=== PATIENT | male | born 1960 | race Caucasian/White ===

== ENCOUNTER 2016-10-10 22:34 | Emergency (ER) | payer MEDICAID ==
[2016-10-10] MEDS ORDERED: Aspirin 81 MG Tab.Chew PO ONE (22:40)
[2016-10-10] MEDS ORDERED: Morphine 4 MG/ML Syringe IVPUSH ONE (22:46)
[2016-10-10] MEDS ORDERED: Morphine 4 MG/ML Syringe ONE (22:46)
--- NOTE | 2016-10-10 22:54 | EDM.PDOC ---
ED HPI GENERAL MEDICAL PROBLEM - General Time Seen by Provider: 10/10/16 22:35 Source of Information: Reports: Patient, EMS History Limitations: Reports: No Limitations - History of Present Illness INITIAL COMMENTS - FREE TEXT/NARRATIVE: Patient presents with left sternal chest pain that started at 1915 and worsened progressively. By 2129 it was 10/10; he took a nitro at 2150 and then a second at 2200 which weren't helping much so called the ambulance. He had a third nitro in the ambulance at 2225. The pain is now 5/10, down from 10/10. He says the pain is similar to, but not as severe as, his previous two heart attacks: in 2005 and 2010. He was diaphoretic at those times and the EMS staff told me he was visibly uncomfortable then, but today he was sitting at his computer smoking a cigarette when they came to pick him up. He also had stents placed at those times. He still smokes 3/4 ppd per patient. He denies arm, neck or jaw pain; denies diaphoresis. He felt fine all morning and afternoon and spent most of the day doing some shopping and later sitting at his computer. - Related Data Allergies Allergy/AdvReac Type Severity Reaction Status Date / Time codeine Allergy Dizziness Verified 10/10/16 23:08 Home Meds: Home Meds Metoprolol Tartrate 25 mg PO BID 08/08/14 [History] buPROPion [buPROPion XL] 100 mg PO DAILY 08/08/14 [History] Citalopram [Citalopram HBr] 40 mg PO DAILY 12/01/15 [History] lamoTRIgine [Lamotrigine] 100 mg PO BEDTIME 12/01/15 [History] Omeprazole 20 mg PO DAILY 10/10/16 [History] Omeprazole 40 mg PO DAILY 10/10/16 [History] Orphenadrine [Norflex] 100 mg PO BID 10/10/16 [History] Past Medical History Cardiovascular History: Reports: Hypertension, [place], Stents Gastrointestinal History: Reports: Hiatal Hernia Other Gastrointestinal History: H. Pylori Psychiatric History: Reports: Depression - Past Surgical History Cardiovascular Surgical History: Reports: Coronary Artery Stent Musculoskeletal Surgical History: Reports: Arthroscopic Knee Social & Family History - Tobacco Use Smoking Status *Q: Current Every Day Smoker Years of Tobacco use: 35 Packs/Tins Daily: 1 Used Tobacco, but Quit: No Second Hand Smoke Exposure: Yes - Caffeine Use Caffeine Use: Reports: Coffee - Alcohol Use Days Per Week of Alcohol Use: 0 - Recreational Drug Use Recreational Drug Use: No ED ROS GENERAL - Review of Systems Review Of Systems: See Below Constitutional: Denies: Fever, Chills, Malaise, Weakness, Diaphoresis HEENT: Denies: Throat Pain, Vision Change Respiratory: Denies: Shortness of Breath, Cough Cardiovascular: Reports: Chest Pain. Denies: Lightheadedness, Syncope GI/Abdominal: Reports: Other (He denies reflux or heartburn problems). Denies: Abdominal Pain, Diarrhea, Nausea, Vomiting : Reports: No Symptoms Musculoskeletal: Denies: Neck Pain, Shoulder Pain, Arm Pain, Back Pain Skin: Denies: Cyanosis, Jaundice, Mottled, Pallor, Diaphoresis Neurological: Denies: Confusion, Dizziness, Headache, Seizure, Syncope, Trouble Speaking, Difficulty Walking, Weakness Psychiatric: Denies: Agitation, Anxiety, Confusion ED EXAM, GENERAL - Physical Exam Exam: See Below Exam Limited By: No Limitations General Appearance: Alert, WD/WN, No Apparent Distress Eye Exam: Bilateral Eye: EOMI, Normal Inspection, PERRL Ears: Normal External Exam, Hearing Grossly Normal Nose: Normal Inspection, No Blood Throat/Mouth: Normal Inspection, Normal Lips, Normal Voice, No Airway Compromise Head: Atraumatic, Normocephalic Neck: Normal Inspection, Supple, Non-Tender, Full Range of Motion Respiratory/Chest: No Respiratory Distress, Lungs Clear, Normal Breath Sounds, No Accessory Muscle Use Cardiovascular: Normal Peripheral Pulses, Regular Rate, Rhythm, No Edema, No Murmur Peripheral Pulses: 2+: Carotid (L), Carotid (R), Radial (L), Radial (R), Posterior Tibial (L), Posterior Tibial (R) GI/Abdominal: Normal Bowel Sounds, Soft, Non-Tender, No Organomegaly, No Distention Extremities: Normal Inspection, Normal Range of Motion, Non-Tender, No Pedal Edema Neurological: Alert, Oriented, Normal Cognition, No Motor/Sensory Deficits Psychiatric: Normal Affect, Normal Mood Skin Exam: Warm, Dry, Intact, Normal Color, No Rash Course - Orders/Labs/Meds Orders: Active Orders 24 hr Category Date Time Status CBC WITH AUTO DIFF [HEME] Stat Lab 10/10/16 22:43 Ordered CMP [COMPREHENSIVE METABOLIC PN,CMP] [CHEM] Stat Lab 10/10/16 22:42 Ordered LIPASE [CHEM] Stat Lab 10/10/16 22:42 Ordered TROPONIN I [CHEM] Stat Lab 10/10/16 22:42 Ordered - Re-Assessments/Exams Free Text/Narrative Re-Assessment/Exam: 10/10/16 23:30 Following 4 mg of morphine pain is down to 3/10. Patient tells me he is applying for social security disability because of his two heart attacks and chronic low back pain. Especially since he doesn't know when he will have another heart attack he says. He drinks about once a month and smokes marijuana when it's available but never any other street drugs. 10/10/16 23:54 Troponin is 0.06 and EKGs are negative. Pain is completely gone following GI cocktail. I discussed findings and recommendations with patient: Smoking cessation is extremely important and regular cardio exercise will help his heart as well as his back pain. Patient discharged in stable condition. Departure - Departure Time of Disposition: 23:51 Disposition: Home, Self-Care 01 Condition: Good Clinical Impression: Chest pain of uncertain etiology Additional Instructions: 1. Drink 8 cups of water daily. 2. Stopping smoking is extremely important to reduce your risk of heart attacks. 3. Follow up with your PCP next week for recheck and to discuss smoking cessation options if you choose. - My Orders Last 24 Hours: My Active Orders 10/10/16 22:42 CMP [COMPREHENSIVE METABOLIC PN,CMP] [CHEM] Stat LIPASE [CHEM] Stat TROPONIN I [CHEM] Stat 10/10/16 22:43 CBC WITH AUTO DIFF [HEME] Stat - Assessment/Plan Last 24 Hours: My Active Orders 10/10/16 22:42 CMP [COMPREHENSIVE METABOLIC PN,CMP] [CHEM] Stat LIPASE [CHEM] Stat TROPONIN I [CHEM] Stat 10/10/16 22:43 CBC WITH AUTO DIFF [HEME] Stat
[2016-10-10 23:23] LABS: SODIUM,NA 141 mmol/L (136-145)
[2016-10-10 23:24] LABS: CHLORIDE,CL 103 mmol/L (98-115)
[2016-10-10] MEDS ORDERED: GI Cocktail 45 ML BOTTLE PO ONE (23:29)
[2016-10-11] VITALS: BP 127/53
== END 2016-10-11 00:15 | disposition home or self-care (01) ==
LOC: KA.ED 22:34
DX: R07.2 Precordial pain (principal); I10 Essential (primary) hypertension; F17.210 Nicotine dependence, cigarettes, uncomplicated; F32.9 Major depressive disorder, single episode, unspecified; I25.2 Old myocardial infarction; Z95.5 Presence of coronary angioplasty implant and graft; Z88.5 Allergy status to narcotic agent; Z79.82 Long term (current) use of aspirin
CPT/HCPCS: 36415; 80053; 83690; 84484; 85025; 93005; 96374; 99285; A9270; J2270

== ENCOUNTER 2017-02-28 11:05 | Emergency (ER) | payer MEDICAID ==
[2017-02-28] MEDS ORDERED: Ondansetron 4 MG/2 ML SDV IVPUSH ONE (11:06)
[2017-02-28] MEDS ORDERED: HYDROmorphone 1 MG/ML Syringe IVPUSH ONE (11:06)
--- NOTE | 2017-02-28 11:12 | EDM.PDOC ---
ED HPI GENERAL MEDICAL PROBLEM - General Chief Complaint: Lower Extremity Injury/Pain Stated Complaint: right ankle injury/slip and fall Time Seen by Provider: 02/28/17 11:05 Source of Information: Reports: Patient, EMS History Limitations: Reports: No Limitations - History of Present Illness INITIAL COMMENTS - FREE TEXT/NARRATIVE: 56 YO WM presents to ER by EMS after slip and fall on ice at [employer]. Pt reports he slipped and injured his right ankle and lower leg. Pt denies any head injury. Pt denies any other injury from fall. Pt was able to stand but unable to weight bear on right side. Onset: Today Onset Date: 02/28/17 Duration: Hour(s): (1/2) Location: Reports: Lower Extremity, Right Quality: Reports: Ache Severity: Severe Improves with: Reports: Rest Worsens with: Reports: Movement Context: Reports: Trauma Associated Symptoms: Reports: No Other Symptoms Right Ankle Pain Score (Numeric/FACES): 10 - Related Data Allergies Allergy/AdvReac Type Severity Reaction Status Date / Time codeine Allergy Dizziness Verified 02/28/17 11:25 Home Meds: Home Meds Metoprolol Tartrate 25 mg PO BID 08/08/14 [History] buPROPion [buPROPion XL] 100 mg PO DAILY 08/08/14 [History] Citalopram [Citalopram HBr] 40 mg PO DAILY 12/01/15 [History] lamoTRIgine [Lamotrigine] 100 mg PO BEDTIME 12/01/15 [History] Omeprazole 20 mg PO DAILY 10/10/16 [History] Omeprazole 40 mg PO DAILY 10/10/16 [History] Orphenadrine [Norflex] 100 mg PO BID 10/10/16 [History] Ibuprofen [Motrin] 600 mg PO Q6H PRN #20 tab 02/28/17 [Rx] traMADol [Ultram] 50 mg PO Q6H PRN #15 tab 02/28/17 [Rx] Past Medical History HEENT History: Reports: Impaired Vision Cardiovascular History: Reports: Hypertension, [place], Stents Other Cardiovascular History: Mi in 2005 with one stent placed, [place] in 2010 with 2 stents placed. Gastrointestinal History: Reports: Hiatal Hernia Other Gastrointestinal History: H. Pylori Musculoskeletal History: Reports: Back Pain, Chronic Psychiatric History: Reports: Depression - Infectious Disease History Infectious Disease History: Reports: Chicken Pox, Helicobacter Pylori, Measles - Past Surgical History Cardiovascular Surgical History: Reports: Coronary Artery Stent Musculoskeletal Surgical History: Reports: Arthroscopic Knee Social & Family History - Family History Cardiac: Reports: [place] - Tobacco Use Smoking Status *Q: Current Every Day Smoker Years of Tobacco use: 40 Packs/Tins Daily: 1 Used Tobacco, but Quit: No Second Hand Smoke Exposure: No - Caffeine Use Caffeine Use: Reports: Coffee, Energy Drinks, Soda - Alcohol Use Days Per Week of Alcohol Use: 0 - Recreational Drug Use Recreational Drug Use: Yes Drug Use in Last 12 Months: Yes Recreational Drug Type: Reports: Marijuana/Hashish Recreational Drug Use Frequency: Daily Review of Systems - Review of Systems Review Of Systems: See Below Constitutional: Reports: No Symptoms Eyes: Reports: No Symptoms Ears: Reports: No Symptoms Nose: Reports: No Symptoms Mouth/Throat: Reports: No Symptoms Respiratory: Reports: No Symptoms Cardiovascular: Reports: No Symptoms GI/Abdominal: Reports: No Symptoms Genitourinary: Reports: No Symptoms Musculoskeletal: Reports: Leg Pain (right ankle) Skin: Reports: No Symptoms Neurological: Reports: No Symptoms Psychiatric: Reports: No Symptoms ED EXAM, GENERAL - Physical Exam Exam: See Below Exam Limited By: No Limitations General Appearance: Alert, WD/WN, Mild Distress Neck: Normal Inspection, Supple, Non-Tender, Full Range of Motion Respiratory/Chest: No Respiratory Distress, Lungs Clear, Normal Breath Sounds, No Accessory Muscle Use, Chest Non-Tender Cardiovascular: Normal Peripheral Pulses, Regular Rate, Rhythm, No Edema, No Gallop, No JVD, No Murmur, No Rub GI/Abdominal: Normal Bowel Sounds, Soft, Non-Tender, No Organomegaly, No Distention, No Abnormal Bruit, No Mass Back Exam: Normal Inspection, Full Range of Motion, NT Extremities: Leg Pain (right proximal ankle injury- lateral swelling noted) Neurological: Alert, Oriented, CN II-XII Intact, Normal Cognition, Normal Gait, Normal Reflexes, No Motor/Sensory Deficits Psychiatric: Normal Affect, Normal Mood Skin Exam: Warm, Dry, Intact, Normal Color, No Rash Lymphatic: No Adenopathy Course - Vital Signs Last Recorded V/S: Last Vital Signs Temp 35.9 C 02/28/17 11:23 Pulse 16 L 02/28/17 11:23 Resp 16 02/28/17 11:23 BP 150/74 H 02/28/17 11:23 Pulse Ox 98 02/28/17 11:23 - Orders/Labs/Meds Orders: Active Orders 24 hr Category Date Time Status Ankle Min 3V Rt [CR] Stat Exams 02/28/17 11:06 Ordered Tibia Fibula Rt [CR] Stat Exams 02/28/17 11:06 Ordered Meds: Medications Discontinued Medications Generic Name Dose Route Start Last Admin Trade Name Freq PRN Reason Stop Dose Admin Hydromorphone HCl 1 mg 02/28/17 11:06 02/28/17 11:17 Dilaudid IVPUSH 02/28/17 11:07 1 mg ONETIME ONE Administration Ondansetron HCl 4 mg 02/28/17 11:06 02/28/17 11:15 Zofran IVPUSH 02/28/17 11:07 4 mg ONETIME ONE Administration - Radiology Interpretation Free Text/Narrative:: right tibia/fibula- proximal nondisplaced spiral fibular fracture right ankle- NAD Departure - Departure Time of Disposition: 12:19 Disposition: Home, Self-Care 01 Condition: Good Clinical Impression: Fracture of fibula Closed fibular fracture Qualifiers: Encounter type: initial encounter Fibula location: proximal Laterality: right - Discharge Information Prescriptions: Ibuprofen [Motrin] 600 mg PO Q6H PRN #20 tab PRN Reason: Pain traMADol [Ultram] 50 mg PO Q6H PRN #15 tab PRN Reason: Pain Referrals: Vanessa Martinez MD [Primary Care Provider] - Gerry Randall MD [Physician] - Forms: ED Department Discharge - My Orders Last 24 Hours: My Active Orders 02/28/17 11:06 Ankle Min 3V Rt [CR] Stat Tibia Fibula Rt [CR] Stat - Assessment/Plan Last 24 Hours: My Active Orders 02/28/17 11:06 Ankle Min 3V Rt [CR] Stat Tibia Fibula Rt [CR] Stat Assessment:: 1. right nondisplaced spiral fracture of the proximal fibula Plan: 1. knee immobilizer 2. crutches 3. motrin 600mg PO Q6 PRN 4. ultram 50mg PO Q6 PRN 5. follow up with [facility] for recheck- Dr Kebede 6. return to ER for worsening symptoms
[2017-02-28 11:25] VITALS: BP 150/74
[2017-02-28] MEDS ORDERED: traMADol 50 MG Tab ONE (13:00)
[2017-02-28] MEDS ORDERED: traMADol 50 MG Tab PO ONE (13:00)
[2017-02-28] MEDS ORDERED: Ibuprofen 600 MG Tab PO ONE (13:00)
== END 2017-02-28 13:25 | disposition home or self-care (01) ==
LOC: KA.ED 11:05
DX: S82.831A Other fracture of upper and lower end of right fibula, initial encounter for closed fracture (principal); S82.51XA Displaced fracture of medial malleolus of right tibia, initial encounter for closed fracture; I10 Essential (primary) hypertension; F32.9 Major depressive disorder, single episode, unspecified; F17.210 Nicotine dependence, cigarettes, uncomplicated; W01.0XXA Fall on same level from slipping, tripping and stumbling without subsequent striking against object, initial encounter; Z88.5 Allergy status to narcotic agent; Z79.899 Other long term (current) drug therapy
CPT/HCPCS: 73590; 73610; 99283; A9270; J1170; J2405; 96374; 96375

== ENCOUNTER 2017-07-06 01:33 | Observation (INO) | payer MEDICAID ==
--- NOTE | 2017-07-06 01:59 | EDM.PDOC ---
ED HPI GENERAL MEDICAL PROBLEM - General Chief Complaint: Chest Pain Stated Complaint: chest pain Time Seen by Provider: 07/06/17 01:33 Source of Information: Reports: Patient, EMS History Limitations: Reports: No Limitations - History of Present Illness INITIAL COMMENTS - FREE TEXT/NARRATIVE: 57-year-old female is brought in by EMS with complaints of chest pain. Patient reports onset of chest pain occurred approximately 12:30 this evening he was rate and is a 10 out of 10 in severity. He stated that he did taking nitroglycerin that he had at home and it improved to an 8 out of 10. Symptoms persisted including dizziness and lightheadedness and he therefore called EMS. On arrival EMS stenosis that patient was diaphoretic. He was still complaining of chest pain and was given another nitroglycerin his pain then improved to a 5 out of 10 he had single-lead EKG showed normal sinus rhythm. He had a for aspirin chewable in route he is now brought in for further evaluation. Patient states that he had 3 beers this evening and he smoked a marijuana joint at approximately 6:30 this evening. He smokes marijuana about once a month he has a current active smoker and smokes about three quarters of a pack a day he's done this for 40 years. He's had 2 stent placements in the past first one is in [place] in July 2005 the second one was in February 2010. He reports the stent he had in 2010 was his LAD. He has not had any chest pain or complaints since his second stent placement. He now states that his pain is a 0 out of 10. Onset: Today, Sudden Onset Date: 07/06/17 Onset Time: 00:30 Duration: Minutes:, Improving Location: Reports: Chest Quality: Reports: Ache Severity: Moderate Improves with: Reports: Medication (Patient was given 2 sublingual nitros.) Worsens with: Reports: None Associated Symptoms: Reports: Other (Dizziness) Treatments [employer] PERSON: Reports: Aspirin, Nitroglycerin Chest Pain Score (Numeric/FACES): 6 - Related Data Allergies Allergy/AdvReac Type Severity Reaction Status Date / Time codeine Allergy Dizziness Verified 07/06/17 01:38 Home Meds: Home Meds Metoprolol Tartrate 25 mg PO BID 08/08/14 [History] buPROPion [buPROPion XL] 100 mg PO DAILY 08/08/14 [History] Citalopram [Citalopram HBr] 40 mg PO DAILY 12/01/15 [History] lamoTRIgine [Lamotrigine] 100 mg PO BEDTIME 12/01/15 [History] Omeprazole 20 mg PO DAILY 10/10/16 [History] Omeprazole 40 mg PO DAILY 10/10/16 [History] Ibuprofen [Motrin] 600 mg PO Q6H PRN #20 tab 02/28/17 [Rx] Past Medical History HEENT History: Reports: Impaired Vision Cardiovascular History: Reports: Hypertension, [place], Stents Other Cardiovascular History: Mi in 2006 with one stent placed, [place] in 2010 with 2 stents placed. Gastrointestinal History: Reports: Hiatal Hernia Other Gastrointestinal History: H. Pylori Musculoskeletal History: Reports: Back Pain, Chronic Psychiatric History: Reports: Depression - Infectious Disease History Infectious Disease History: Reports: Chicken Pox, Helicobacter Pylori, Measles - Past Surgical History Cardiovascular Surgical History: Reports: Coronary Artery Stent Musculoskeletal Surgical History: Reports: Arthroscopic Knee Social & Family History - Family History Cardiac: Reports: [place] - Tobacco Use Smoking Status *Q: Current Every Day Smoker Years of Tobacco use: 40 Packs/Tins Daily: 0.7 - Caffeine Use Caffeine Use: Reports: Coffee, Energy Drinks - Recreational Drug Use Recreational Drug Use: Yes Drug Use in Last 12 Months: Yes Recreational Drug Type: Reports: Marijuana/Hashish Recreational Drug Use Frequency: Monthly ED ROS GENERAL - Review of Systems Review Of Systems: See Below Constitutional: Reports: Diaphoresis HEENT: Reports: No Symptoms Respiratory: Reports: No Symptoms Cardiovascular: Reports: Chest Pain, Lightheadedness Endocrine: Reports: No Symptoms GI/Abdominal: Reports: No Symptoms : Reports: No Symptoms Musculoskeletal: Denies: Neck Pain, Shoulder Pain, Back Pain Skin: Reports: Diaphoresis Neurological: Reports: No Symptoms Psychiatric: Reports: No Symptoms Hematologic/Lymphatic: Reports: No Symptoms Immunologic: Reports: No Symptoms ED EXAM, GENERAL - Physical Exam Exam: See Below Exam Limited By: No Limitations General Appearance: Alert, WD/WN, No Apparent Distress Eye Exam: Bilateral Eye: EOMI, PERRL Ears: Normal External Exam, Normal Canal, Normal TMs Nose: Normal Inspection Throat/Mouth: Normal Oropharynx, Normal Voice, No Airway Compromise Head: Atraumatic Neck: Normal Inspection, Supple, Non-Tender, Full Range of Motion. No: Carotid Bruit Respiratory/Chest: No Respiratory Distress, Lungs Clear Cardiovascular: Regular Rate, Rhythm Peripheral Pulses: 2+: Carotid (L), Carotid (R), Radial (L), Radial (R), Dorsalis Pedis (L), Dorsalis Pedis (R) GI/Abdominal: Normal Bowel Sounds, Soft, Non-Tender, No Abnormal Bruit Back Exam: Normal Inspection Extremities: Normal Inspection, Normal Range of Motion, No Pedal Edema Neurological: Alert, Oriented, No Motor/Sensory Deficits Psychiatric: Normal Affect, Normal Mood Skin Exam: Warm, Dry, Intact, Normal Color, No Rash Lymphatic: No Adenopathy EKG INTERPRETATION EKG Date: 07/06/17 Time: 01:47 Rhythm: NSR Rate (Beats/Min): 66 [place]: Normal P-Wave: Present QRS: Normal ST-T: Normal QT: Normal Comparison: NA - No Prior EKG EKG Interpretation Comments: Normal sinus rhythm Possible left atrial enlargement Course - Vital Signs Last Recorded V/S: Last Vital Signs Temp 97.5 F 07/06/17 01:35 Pulse 70 07/06/17 02:07 Resp 14 07/06/17 02:07 BP 104/48 L 07/06/17 02:07 Pulse Ox 94 L 07/06/17 02:07 - Orders/Labs/Meds Orders: Active Orders 24 hr Category Date Time Status EKG Documentation Completion [RC] ASDIRECTED Care 07/06/17 01:39 Active EKG 12 Lead [EK] Routine Ther 07/06/17 01:38 Ordered Labs: Laboratory Tests 07/06/17 07/06/17 Range/Units 01:35 01:35 WBC 13.4 H (5.0-10.0) 10^3/uL RBC 4.17 L (4.50-6.00) 10^6/uL Hgb 14.5 (13.0-17.0) g/dL Hct 43.2 (40.0-52.0) % MCV 103.6 H D (82.0-92.0) fL MCH 34.8 H (27.0-31.0) pg MCHC 33.6 (32.0-36.0) g/dL RDW 12.7 (11.5-14.5) % Plt Count 200 (150-300) 10^3/uL MPV 7.6 (7.4-10.4) fL Neut % (Auto) 76.2 H (50.0-70.0) % Lymph % (Auto) 18.4 L (20.0-40.0) % [place] % (Auto) 3.3 (2.0-8.0) % Eos % (Auto) 2.1 (1.0-3.0) % Baso % (Auto) 0.0 (0.0-1.0) % Neut # (Auto) 10.2 H (2.5-7.0) 10^3/uL Lymph # (Auto) 2.5 (1.0-4.0) 10^3/uL [place] # (Auto) 0.4 (0.1-0.8) 10^3/uL Eos # (Auto) 0.3 (0.1-0.3) 10^3/uL Baso # (Auto) 0.0 (0.0-0.1) 10^3/uL Sodium 142 (136-145) mmol/L Potassium 4.1 (3.3-5.3) mmol/L Chloride 101 (98-115) mmol/L Carbon Dioxide 22.0 (21.0-32.0) mmol/L BUN 16 (6-25) mg/dL Creatinine 1.77 H (0.51-1.17) mg/dL Est Cr Clr Drug Dosing 49.93 mL/min Estimated GFR (MDRD) 40 mL/min Glucose 133 H (70-110) mg/dL Calcium 8.5 L (8.7-10.3) mg/dL Troponin I < 0.04 (0.00-0.070) ng/mL Meds: Medications Discontinued Medications Generic Name Dose Route Start Last Admin Trade Name Wilner PRN Reason Stop Dose Admin Aspirin Confirm 07/06/17 02:06 07/06/17 02:09 Aspirin Administered 07/06/17 02:07 Not Given Dose 324 mg .ROUTE .STK-MED ONE - Re-Assessments/Exams Free Text/Narrative Re-Assessment/Exam: 07/06/17 02:22 Patient states that his pain is now is 0 out of 10 Departure - Departure Time of Disposition: 02:22 Disposition: Refer to Observation Condition: Good Clinical Impression: Atypical chest pain Referrals: Vanessa Martinez MD [Primary Care Provider] - Forms: ED Department Discharge - My Orders Last 24 Hours: My Active Orders 07/06/17 01:38 EKG 12 Lead [EK] Routine 07/06/17 01:39 EKG Documentation Completion [RC] ASDIRECTED - Assessment/Plan Last 24 Hours: My Active Orders 07/06/17 01:38 EKG 12 Lead [EK] Routine 07/06/17 01:39 EKG Documentation Completion [RC] ASDIRECTED Assessment:: Atypical chest pain, new onset History of coronary stents Prior history of [place] Plan: 1. The patient has not had any cardiac symptoms since his last stent placement in 2010. He is not had any need to take nitroglycerin. He's had a new onset of chest pain that was relieved with nitroglycerin 2. His EKG shows normal sinus rhythm and his troponin is less than 0.04. Due to his significant cardiac history, family history, current smoker and obese I would like to keep him overnight in telemetry and repeat his troponin at 0600. If his troponin is negative at his next lab draw we will plan on sending him home in the morning. Follow-up with Dr. Vanessa Villaseñor
[2017-07-06] MEDS ORDERED: Aspirin 81 MG Tab.Chew ONE (02:06)
[2017-07-06 02:08] LABS: CHLORIDE,CL 101 mmol/L (98-115); SODIUM,NA 142 mmol/L (136-145)
[2017-07-06] MEDS ORDERED: Sodium Chloride 0.9% 5 ML Syringe FLUSH PRN (02:29)
[2017-07-06] MEDS ORDERED: Acetaminophen 325 MG Tab PO PRN (02:29)
[2017-07-06] MEDS ORDERED: Morphine 2 MG/ML Syringe IVPUSH PRN (02:29)
[2017-07-06] MEDS ORDERED: Ondansetron 4 MG/2 ML SDV IV PRN (02:29)
[2017-07-06] MEDS ORDERED: Lidocaine 2% 100 MG/5 ML Syringe IVPUSH PRN (06:09)
[2017-07-06] MEDS ORDERED: Atropine 0.1 MG/ML 10 ML Syringe IVPUSH PRN (06:09)
[2017-07-06] MEDS ORDERED: EPINEPHrine 1:10,000 1 MG/10 ML Syringe IVPUSH PRN (06:09)
[2017-07-06] MEDS ORDERED: Nitroglycerin 0.4 MG Tab.SL SL PRN (06:09)
[2017-07-06] MEDS ORDERED: Omeprazole 20 MG Cap.CR PO ONE (08:45)
[2017-07-06] MEDS ORDERED: buPROPion 100 MG Tab PO ONE (08:45)
[2017-07-06] MEDS ORDERED: Citalopram 20 MG Tab PO ONE (08:45)
[2017-07-06 08:47] VITALS: BP 119/67
[2017-07-06] MEDS ORDERED: Non-Formulary Medication 1 Each (Omeprazole [Omeprazole] 40 MG) PO SCH (09:00)
[2017-07-06] MEDS ORDERED: CITALOPRAM 40 MG PO SCH (09:00)
[2017-07-06] MEDS ORDERED: Non-Formulary Medication 1 Each (Omeprazole [Omeprazole] 20 MG) PO SCH (09:00)
[2017-07-06] MEDS ORDERED: Metoprolol Tartrate 25 MG Tab PO SCH (09:00)
[2017-07-06] MEDS ORDERED: BUPROPION 100 MG PO SCH (09:00)
--- NOTE | 2017-07-06 11:25 | PCM.PN ---
- General Info Date of Service: 07/06/17 Admission Dx/Problem (Free Text): atypical chest, angina Functional Status: Reports: Pain Controlled, Tolerating Diet, Ambulating Pain Score: 0 - Review of Systems General: Reports: No Symptoms HEENT: Reports: No Symptoms Pulmonary: Denies: Shortness of Breath Cardiovascular: Denies: Chest Pain, Palpitations, Dyspnea on Exertion, Lightheadedness Gastrointestinal: Reports: No Symptoms Genitourinary: Reports: No Symptoms Musculoskeletal: Reports: No Symptoms Skin: Reports: No Symptoms Neurological: Reports: No Symptoms - Patient Data Vitals - Most Recent: Last Vital Signs Temp 97.6 F 07/06/17 06:06 Pulse 65 07/06/17 08:45 Resp 18 07/06/17 06:06 BP 119/67 07/06/17 08:45 Pulse Ox 95 07/06/17 06:06 Weight - Most Recent: 231 lb 6 oz I&O - Last 24 Hours: Intake & Output 07/05/17 07/06/17 07/06/17 22:59 06:59 14:59 Intake Total 200 Output Total 0 Balance 200 Lab Results Last 24 Hours: Laboratory Results - last 24 hr 07/06/17 07/06/17 07/06/17 Range/Units 01:35 01:35 06:10 WBC 13.4 H (5.0-10.0) 10^3/uL RBC 4.17 L (4.50-6.00) 10^6/uL Hgb 14.5 (13.0-17.0) g/dL Hct 43.2 (40.0-52.0) % MCV 103.6 H D (82.0-92.0) fL MCH 34.8 H (27.0-31.0) pg MCHC 33.6 (32.0-36.0) g/dL RDW 12.7 (11.5-14.5) % Plt Count 200 (150-300) 10^3/uL MPV 7.6 (7.4-10.4) fL Neut % (Auto) 76.2 H (50.0-70.0) % Lymph % (Auto) 18.4 L (20.0-40.0) % [place] % (Auto) 3.3 (2.0-8.0) % Eos % (Auto) 2.1 (1.0-3.0) % Baso % (Auto) 0.0 (0.0-1.0) % Neut # (Auto) 10.2 H (2.5-7.0) 10^3/uL Lymph # (Auto) 2.5 (1.0-4.0) 10^3/uL [place] # (Auto) 0.4 (0.1-0.8) 10^3/uL Eos # (Auto) 0.3 (0.1-0.3) 10^3/uL Baso # (Auto) 0.0 (0.0-0.1) 10^3/uL Sodium 142 (136-145) mmol/L Potassium 4.1 (3.3-5.3) mmol/L Chloride 101 (98-115) mmol/L Carbon Dioxide 22.0 (21.0-32.0) mmol/L BUN 16 (6-25) mg/dL Creatinine 1.77 H (0.51-1.17) mg/dL Est Cr Clr Drug Dosing 49.93 mL/min Estimated GFR (MDRD) 40 mL/min Glucose 133 H (70-110) mg/dL Calcium 8.5 L (8.7-10.3) mg/dL Troponin I < 0.04 < 0.04 (0.00-0.070) ng/mL Med Orders - Current: Current Medications Acetaminophen (Tylenol) 650 mg PO Q4H PRN PRN Reason: Pain (Mild 1-3)/fever Last Admin: 07/06/17 09:20 Dose: 650 mg Atropine Sulfate (Atropine 0.1 Mg/Ml) 0 mg IVPUSH ASDIRECTED PRN PRN Reason: Heart Epinephrine HCl (Epinephrine 1:10,000) 1 mg IVPUSH ASDIRECTED PRN PRN Reason: Heart Lamotrigine (Lamotrigine) 100 mg PO BEDTIME [place] Lidocaine HCl (Xylocaine 2%) 0 mg IVPUSH ASDIRECTED PRN PRN Reason: Heart Metoprolol Tartrate (Lopressor) 25 mg PO BID [place] Last Admin: 07/06/17 08:45 Dose: 25 mg Morphine Sulfate (Morphine) 2 mg IVPUSH Q2H PRN PRN Reason: Pain (severe 7-10) Nitroglycerin (Nitrostat) 0.4 mg SL ASDIRECTED PRN PRN Reason: Heart Non-Formulary Medication (Bupropion [Bupropion Xl]) 100 mg PO DAILY [facility] Last Admin: 07/06/17 08:45 Dose: 100 mg Non-Formulary Medication (Citalopram [Citalopram Hbr]) 40 mg PO DAILY [facility] Last Admin: 07/06/17 08:45 Dose: 40 mg Non-Formulary Medication (Omeprazole [Omeprazole]) 20 mg PO DAILY [facility] Last Admin: 07/06/17 08:45 Dose: 20 mg Non-Formulary Medication (Omeprazole [Omeprazole]) 40 mg PO DAILY [facility] Last Admin: 07/06/17 08:46 Dose: 40 mg Ondansetron HCl (Zofran) 4 mg IV Q6H PRN PRN Reason: Nausea/Vomiting Sodium Chloride (Syrex Flush) 5 ml FLUSH Q8HR PRN PRN Reason: Keep Vein Open Discontinued Medications Aspirin (Aspirin) Confirm Administered Dose 324 mg .ROUTE .SkemA-MED ONE Stop: 07/06/17 02:07 Last Admin: 07/06/17 02:09 Dose: Not Given - Exam General: Alert, Oriented HEENT: Pupils Equal Neck: Supple Lungs: Clear to Auscultation Cardiovascular: Regular Rate, Regular Rhythm GI/Abdominal Exam: Soft Back Exam: Normal Inspection Extremities: Normal Inspection Neurological: No New Focal Deficit Psy/Mental Status: Alert, Normal Affect, Normal Mood - Problem List Review Problem List Initiated/Reviewed/Updated: Yes - My Orders Last 24 Hours: My Active Orders 07/06/17 01:38 EKG 12 Lead [EK] Routine 07/06/17 01:39 EKG Documentation Completion [RC] ASDIRECTED 07/06/17 02:29 Patient Status [ADT] Routine Oxygen Therapy [RC] PRN Up With Assistance [RC] ASDIRECTED VTE/DVT Education [RC] PER UNIT ROUTINE Vital Signs [RC] 0300,0700,1100,1500,1900,2300 Acetaminophen [Tylenol] 650 mg PO Q4H PRN Morphine 2 mg IVPUSH Q2H PRN Ondansetron [Zofran] 4 mg IV Q6H PRN Sodium Chloride 0.9% [Syrex Flush] 5 ml FLUSH Q8HR PRN Saline Lock Insert [OM.PC] Routine Resuscitation Status Routine 07/06/17 02:31 Cardiac Monitoring [RC] 0300,0700,1100,1500,1900,2300 Antiembolic Hose [OM.PC] Per Unit Routine 07/06/17 06:09 Atropine [Atropine 0.1 MG/ML] 0 mg IVPUSH ASDIRECTED PRN EPINEPHrine [EPINEPHrine 1:10,000] 1 mg IVPUSH ASDIRECTED PRN Lidocaine 2% [Xylocaine 2%] 0 mg IVPUSH ASDIRECTED PRN Nitroglycerin [Nitrostat] 0.4 mg SL ASDIRECTED PRN 07/06/17 09:00 Citalopram [Citalopram HBr] 40 mg PO DAILY Metoprolol Tartrate [Lopressor] 25 mg PO BID Omeprazole [Omeprazole] 20 mg PO DAILY Omeprazole [Omeprazole] 40 mg PO DAILY buPROPion [buPROPion XL] 100 mg PO DAILY 07/06/17 10:37 Ready for Discharge [RC] PER UNIT ROUTINE 07/06/17 21:00 lamoTRIgine 100 mg PO BEDTIME 07/06/17 Breakfast Regular Diet [DIET] - Assessment Assessment:: angina, atypical chest pain h/o rajwinder liang, 2006, 2010 Serial troponins negative. - Plan Plan:: 1. Patient is to be discharged home today 2. Patient is to avoid vigorous activities 3. Recommend that he stay inside avoidance of the heat and sun 4. Recommend follow-up with Dr. Vanessa Villaseñor next week.
--- NOTE | 2017-07-06 18:37 | PCM.DCSUM1 ---
Discharge Summary - Discharge Data Discharge Date: 07/06/17 Discharge Disposition: Home, Self-Care 01 Condition: Good - Patient Summary/Data Recommended Follow-up Testing/Procedures: Patient is to avoid strenuous activity. Recommend a follow-up with Dr. Vanessa Villaseñor next week. Patient will likely need a stress test due to recent episode of angina atypical chest pain. Hospital Course: 57-year-old male was admitted observation on telemetry for complaints of angina atypical chest pain. He had an uneventful evening and reports no pain or discomfort currently. His appetite has been good. He's been able to ambulate without discomfort. His a.m. troponin was normal less than 0.04. - Patient Instructions Diet: Heart Healthy Diet Activity: No Strenuous Activities, Rest and Relax Today Driving: May Drive Today Showering/Bathing: May Shower Notify Provider of: Nausea and/or Vomiting - Discharge Plan Home Medications: Home Meds Metoprolol Tartrate 25 mg PO BID 08/08/14 [History] buPROPion [buPROPion XL] 100 mg PO DAILY 08/08/14 [History] Citalopram [Citalopram HBr] 40 mg PO DAILY 12/01/15 [History] lamoTRIgine [Lamotrigine] 100 mg PO BEDTIME 12/01/15 [History] Omeprazole 20 mg PO DAILY 10/10/16 [History] Omeprazole 40 mg PO DAILY 10/10/16 [History] Ibuprofen [Motrin] 600 mg PO Q6H PRN #20 tab 02/28/17 [Rx] Patient Handouts: Exercise Stress Test Forms: ED Department Discharge Referrals: Vanessa Martinez MD [Primary Care Provider] - - Discharge Summary/Plan Comment Discharge Summary/Plan Comment: 1. Avoid strenuous activity today. 2. Follow-up with Dr. Vanessa Villaseñor next week. - Patient Data Vitals - Most Recent: Last Vital Signs Temp 97.6 F 07/06/17 06:06 Pulse 65 07/06/17 08:45 Resp 18 07/06/17 06:06 BP 119/67 07/06/17 08:45 Pulse Ox 95 07/06/17 06:06 Weight - Most Recent: 231 lb 6 oz I&O - Last 24 hours: Intake & Output 07/06/17 07/06/17 07/06/17 06:59 14:59 22:59 Intake Total 200 Output Total 0 Balance 200 Lab Results - Last 24 hrs: Laboratory Results - last 24 hr 07/06/17 07/06/17 07/06/17 Range/Units 01:35 01:35 06:10 WBC 13.4 H (5.0-10.0) 10^3/uL RBC 4.17 L (4.50-6.00) 10^6/uL Hgb 14.5 (13.0-17.0) g/dL Hct 43.2 (40.0-52.0) % MCV 103.6 H D (82.0-92.0) fL MCH 34.8 H (27.0-31.0) pg MCHC 33.6 (32.0-36.0) g/dL RDW 12.7 (11.5-14.5) % Plt Count 200 (150-300) 10^3/uL MPV 7.6 (7.4-10.4) fL Neut % (Auto) 76.2 H (50.0-70.0) % Lymph % (Auto) 18.4 L (20.0-40.0) % [place] % (Auto) 3.3 (2.0-8.0) % Eos % (Auto) 2.1 (1.0-3.0) % Baso % (Auto) 0.0 (0.0-1.0) % Neut # (Auto) 10.2 H (2.5-7.0) 10^3/uL Lymph # (Auto) 2.5 (1.0-4.0) 10^3/uL [place] # (Auto) 0.4 (0.1-0.8) 10^3/uL Eos # (Auto) 0.3 (0.1-0.3) 10^3/uL Baso # (Auto) 0.0 (0.0-0.1) 10^3/uL Sodium 142 (136-145) mmol/L Potassium 4.1 (3.3-5.3) mmol/L Chloride 101 (98-115) mmol/L Carbon Dioxide 22.0 (21.0-32.0) mmol/L BUN 16 (6-25) mg/dL Creatinine 1.77 H (0.51-1.17) mg/dL Est Cr Clr Drug Dosing 49.93 mL/min Estimated GFR (MDRD) 40 mL/min Glucose 133 H (70-110) mg/dL Calcium 8.5 L (8.7-10.3) mg/dL Troponin I < 0.04 < 0.04 (0.00-0.070) ng/mL Med Orders - Current: Current Medications Discontinued Medications Acetaminophen (Tylenol) 650 mg PO Q4H PRN PRN Reason: Pain (Mild 1-3)/fever Last Admin: 07/06/17 09:20 Dose: 650 mg Aspirin (Aspirin) Confirm Administered Dose 324 mg .ROUTE .STK-MED ONE Stop: 07/06/17 02:07 Last Admin: 07/06/17 02:09 Dose: Not Given Atropine Sulfate (Atropine 0.1 Mg/Ml) 0 mg IVPUSH ASDIRECTED PRN PRN Reason: Heart Epinephrine HCl (Epinephrine 1:10,000) 1 mg IVPUSH ASDIRECTED PRN PRN Reason: Heart Lamotrigine (Lamotrigine) 100 mg PO BEDTIME [facility] Lidocaine HCl (Xylocaine 2%) 0 mg IVPUSH ASDIRECTED PRN PRN Reason: Heart Metoprolol Tartrate (Lopressor) 25 mg PO BID [facility] Last Admin: 07/06/17 08:45 Dose: 25 mg Morphine Sulfate (Morphine) 2 mg IVPUSH Q2H PRN PRN Reason: Pain (severe 7-10) Nitroglycerin (Nitrostat) 0.4 mg SL ASDIRECTED PRN PRN Reason: Heart Non-Formulary Medication (Bupropion [Bupropion Xl]) 100 mg PO DAILY [facility] Last Admin: 07/06/17 08:45 Dose: 100 mg Non-Formulary Medication (Citalopram [Citalopram Hbr]) 40 mg PO DAILY [facility] Last Admin: 07/06/17 08:45 Dose: 40 mg Non-Formulary Medication (Omeprazole [Omeprazole]) 20 mg PO DAILY [facility] Last Admin: 07/06/17 08:45 Dose: 20 mg Non-Formulary Medication (Omeprazole [Omeprazole]) 40 mg PO DAILY [facility] Last Admin: 07/06/17 08:46 Dose: 40 mg Ondansetron HCl (Zofran) 4 mg IV Q6H PRN PRN Reason: Nausea/Vomiting Sodium Chloride (Syrex Flush) 5 ml FLUSH Q8HR PRN PRN Reason: Keep Vein Open
[2017-07-06] MEDS ORDERED: lamoTRIgine 100 MG Tab PO SCH (21:00)
== END 2017-07-06 12:30 | disposition home or self-care (01) ==
LOC: SUPCPDRO 01:33 → KA.ED 01:33 → KA.MS 02:45
PROVIDERS: ADMIT Physician Assistant; ATTEND Physician Assistant
DX: I20.9 Angina pectoris, unspecified (principal); F17.210 Nicotine dependence, cigarettes, uncomplicated; I10 Essential (primary) hypertension; I25.2 Old myocardial infarction; F32.9 Major depressive disorder, single episode, unspecified; Z79.899 Other long term (current) drug therapy; Z95.5 Presence of coronary angioplasty implant and graft; Z88.5 Allergy status to narcotic agent
CPT/HCPCS: 80048; 84484; 85025; 99285; A9270; G0378; 93005

== ENCOUNTER 2018-12-08 16:23 | Emergency (ER) | payer SELFPAY ==
[2018-12-08 16:46] VITALS: BP 96/58; PULSE 75
[2018-12-08] MEDS: Ketorolac 60 MG/2 ML SDV IM ONE (17:35)
[2018-12-08] MEDS: Cyclobenzaprine 10 MG Tab PO ONE (17:35)
--- NOTE | 2018-12-08 17:35 | EDM.PDOC ---
ED HPI GENERAL MEDICAL PROBLEM - General Chief Complaint: General Stated Complaint: LOW BACK PAIN Time Seen by Provider: 12/08/18 17:15 Source of Information: Reports: Patient, Significant Other History Limitations: Reports: No Limitations - History of Present Illness INITIAL COMMENTS - FREE TEXT/NARRATIVE: Patient presents with low back pain. It is worse today but he has chronic DJD and has had LESI, SI and trigger point injections without improvement. A couple weeks ago he had a flare like this and saw his PCP who did a Toradol injection that was helpful. He is scheduled to see a pain specialist in a month. He is on disability so doesn't really do anything but sit most of the day. Lower Back Pain Score (Numeric/FACES): 10 - Related Data Allergies Allergy/AdvReac Type Severity Reaction Status Date / Time codeine Allergy Dizziness Verified 12/08/18 16:47 #NO NARCOTICS AdvReac Severe Other Uncoded 12/08/18 16:47 Home Meds: Home Meds buPROPion [buPROPion XL] 100 mg PO DAILY 08/08/14 [History] Citalopram [Citalopram HBr] 40 mg PO DAILY 12/01/15 [History] lamoTRIgine [Lamotrigine] 200 mg PO BEDTIME 12/01/15 [History] Omeprazole 40 mg PO BID 10/10/16 [History] Aspirin 81 mg PO DAILY 01/17/18 [History] Nitroglycerin [Nitrostat] 0.4 mg SL ONETIME 01/17/18 [History] busPIRone [Buspar] 5 mg PO TID 01/17/18 [History] Cyclobenzaprine [Flexeril] 10 mg PO BEDTIME PRN 12/08/18 [History] Metoprolol Tartrate 25 mg PO BID 12/08/18 [History] atorvaSTATin [Lipitor] 10 mg PO BEDTIME 12/08/18 [History] Past Medical History HEENT History: Reports: Impaired Vision Cardiovascular History: Reports: Hypertension, DC, Stents Other Cardiovascular History: DC in 2005 with one stent placed, DC in 2010 with 2 stents placed. Respiratory History: Reports: Sleep Apnea Gastrointestinal History: Reports: GERD, Hiatal Hernia Other Gastrointestinal History: H. Pylori Musculoskeletal History: Reports: Back Pain, Chronic, Other (See Below) Other Musculoskeletal History: fractured fibula Feb 2017 Psychiatric History: Reports: Anxiety, Depression - Infectious Disease History Infectious Disease History: Reports: Chicken Pox, Measles, Mumps - Past Surgical History Cardiovascular Surgical History: Reports: Coronary Artery Stent Respiratory Surgical History: Reports: None GI Surgical History: Reports: None Musculoskeletal Surgical History: Reports: Arthroscopic Knee, Other (See Below) Other Musculoskeletal Surgeries/Procedures:: plate in the R ankle Social & Family History - Family History Family Medical History: Noncontributory Cardiac: Reports: DC - Tobacco Use Smoking Status *Q: Current Every Day Smoker Years of Tobacco use: 40 Packs/Tins Daily: 1 - Caffeine Use Caffeine Use: Reports: Coffee, Energy Drinks, Soda - Recreational Drug Use Recreational Drug Use: Yes Recreational Drug Type: Reports: Marijuana/Hashish Recreational Drug Use Frequency: Weekly ED ROS GENERAL - Review of Systems Review Of Systems: See Below Constitutional: Denies: Fever, Chills, Malaise, Weakness HEENT: Reports: No Symptoms Respiratory: Denies: Shortness of Breath, Cough Cardiovascular: Denies: Chest Pain, Lightheadedness, Syncope Endocrine: Denies: Fatigue GI/Abdominal: Denies: Abdominal Pain, Diarrhea, Vomiting : Reports: No Symptoms Musculoskeletal: Reports: Back Pain, Leg Pain (low back and down right leg). Denies: Neck Pain, Shoulder Pain, Arm Pain, Hand Pain Skin: Reports: No Symptoms Neurological: Denies: Confusion, Dizziness, Seizure, Syncope, Trouble Speaking Psychiatric: Denies: Agitation, Anxiety, Confusion ED EXAM, GENERAL - Physical Exam Exam: See Below Exam Limited By: No Limitations General Appearance: Alert, WD/WN, No Apparent Distress Eye Exam: Bilateral Eye: EOMI, Normal Inspection, PERRL Ears: Normal External Exam, Hearing Grossly Normal Nose: Normal Inspection, No Blood Throat/Mouth: Normal Inspection, Normal Lips, Normal Voice, No Airway Compromise Head: Atraumatic, Normocephalic Neck: Normal Inspection, Full Range of Motion Respiratory/Chest: No Respiratory Distress, Lungs Clear, Normal Breath Sounds, No Accessory Muscle Use Cardiovascular: Regular Rate, Rhythm, No Murmur GI/Abdominal: Soft, Non-Tender, No Distention Back Exam: Muscle Spasm, Paraspinal Tenderness (right lumbar). No: CVA Tenderness (L), CVA Tenderness (R), Vertebral Tenderness Extremities: Normal Inspection, Normal Range of Motion Neurological: Alert, Oriented, Normal Cognition, No Motor/Sensory Deficits Psychiatric: Normal Affect, Normal Mood Skin Exam: Warm, Dry, Intact, Normal Color, No Rash Course - Vital Signs Last Recorded V/S: Last Vital Signs Temp 97.7 F 12/08/18 16:40 Pulse 75 12/08/18 16:40 Resp 20 12/08/18 16:40 BP 96/58 L 12/08/18 16:40 Pulse Ox 100 12/08/18 16:40 - Orders/Labs/Meds Orders: Active Orders 24 hr Category Date Time Status Cyclobenzaprine [Flexeril] Med 12/08/18 17:29 Once 10 mg PO ONETIME ONE Ketorolac [Toradol] Med 12/08/18 17:29 Once 60 mg IM ONETIME ONE - Re-Assessments/Exams Free Text/Narrative Re-Assessment/Exam: 12/08/18 17:40 I discussed findings and treatment plan with patient. I encouraged him to drink water and try to walk some each day and stressed the importance of this to him for chronic management. After the Toradol and Flexeril he was discharged to home in stable condition with his driving. Departure - Departure Time of Disposition: 17:30 Disposition: Home, Self-Care 01 Condition: Good Clinical Impression: Lumbar paraspinal muscle spasm, DJD (degenerative joint disease), lumbosacral - Discharge Information Instructions: Back Exercises, [id number] Referrals: Ruchi Camarena PA-C [Primary Care Provider] - Additional Instructions: 1. Drink 8 cups of water daily. 2. Take the Flexeril every 8 hours for 5-7 days, then back to nightly as before. 3. You can use Ibuprofen 400-600 mg every 8 hours but don't start until 12 hours after this ER visit. 4. Try to walk some each day and try some of the exercises detailed in the next few pages. 5. Keep the appointment with the pain specialist in a month. 6. Follow up with your PCP as needed. - My Orders Last 24 Hours: My Active Orders 12/08/18 17:29 Cyclobenzaprine [Flexeril] 10 mg PO ONETIME ONE Ketorolac [Toradol] 60 mg IM ONETIME ONE - Assessment/Plan Last 24 Hours: My Active Orders 12/08/18 17:29 Cyclobenzaprine [Flexeril] 10 mg PO ONETIME ONE Ketorolac [Toradol] 60 mg IM ONETIME ONE
== END 2018-12-08 18:15 | disposition home or self-care (01) ==
LOC: KA.ED 16:23
DX: M47.896 Other spondylosis, lumbar region (principal); M62.830 Muscle spasm of back; I10 Essential (primary) hypertension; I25.2 Old myocardial infarction; F41.9 Anxiety disorder, unspecified; F17.210 Nicotine dependence, cigarettes, uncomplicated; Z88.5 Allergy status to narcotic agent; Z79.82 Long term (current) use of aspirin; Z79.899 Other long term (current) drug therapy; Z95.5 Presence of coronary angioplasty implant and graft
CPT/HCPCS: 99283; 99284; A9270-GY; J1885

== ENCOUNTER 2018-12-28 18:55 | Emergency (ER) | payer MEDICAID ==
--- NOTE | 2018-12-28 19:12 | EDM.PDOC ---
ED HPI GENERAL MEDICAL PROBLEM - General Chief Complaint: Syncope Stated Complaint: LIGHTHEADED Time Seen by Provider: 12/28/18 19:00 Source of Information: Reports: Patient History Limitations: Reports: No Limitations - History of Present Illness INITIAL COMMENTS - FREE TEXT/NARRATIVE: Onset, and suddenly with diaphoresis. Had near syncopal episode with lightheadedness. Denies syncope. EMS was summoned via 911 arrives via ambulance with IV initiation monitor and storage bin tender. States he was out of his medications over the weekend having all pill bottles filled yesterday. Attempted to get back on track with all his medications. Denies street drug use past 24+ hours denies any alcohol today Onset: Today Duration: Minutes: Location: Reports: Head Quality: Reports: Dull Severity: Moderate Improves with: Reports: None Worsens with: Reports: None Context: Reports: Other Associated Symptoms: Reports: Syncope (Near) - Related Data Allergies Allergy/AdvReac Type Severity Reaction Status Date / Time codeine Allergy Dizziness Verified 12/28/18 19:25 #NO NARCOTICS AdvReac Severe Other Uncoded 12/28/18 19:25 Home Meds: Home Meds buPROPion [buPROPion XL] 100 mg PO DAILY 08/08/14 [History] Citalopram [Citalopram HBr] 40 mg PO DAILY 12/01/15 [History] lamoTRIgine [Lamotrigine] 200 mg PO BEDTIME 12/01/15 [History] Omeprazole 40 mg PO BID 10/10/16 [History] Aspirin 81 mg PO DAILY 01/17/18 [History] Nitroglycerin [Nitrostat] 0.4 mg SL ONETIME 01/17/18 [History] busPIRone [Buspar] 5 mg PO TID 01/17/18 [History] Metoprolol Tartrate 25 mg PO BID 12/08/18 [History] atorvaSTATin [Lipitor] 10 mg PO BEDTIME 12/08/18 [History] Baclofen 20 mg PO QID 12/28/18 [History] Past Medical History HEENT History: Reports: Impaired Vision Cardiovascular History: Reports: Hypertension, [place], Stents Other Cardiovascular History: IN in 2005 with one stent placed, IN in 2010 with 2 stents placed. Respiratory History: Reports: Sleep Apnea Gastrointestinal History: Reports: GERD, Hiatal Hernia Other Gastrointestinal History: H. Pylori Musculoskeletal History: Reports: Back Pain, Chronic, Other (See Below) (Spinal stenosis) Other Musculoskeletal History: fractured fibula Feb 2017 Psychiatric History: Reports: Anxiety, Depression - Infectious Disease History Infectious Disease History: Reports: Chicken Pox, Measles, Mumps - Past Surgical History Cardiovascular Surgical History: Reports: Coronary Artery Stent Respiratory Surgical History: Reports: None GI Surgical History: Reports: None Musculoskeletal Surgical History: Reports: Arthroscopic Knee, Other (See Below) Other Musculoskeletal Surgeries/Procedures:: plate in the R ankle - Past Imaging History Past Imaging History: Reports: Xray Social & Family History - Family History Family Medical History: Noncontributory Cardiac: Reports: IN - Tobacco Use Smoking Status *Q: Current Every Day Smoker Tobacco Use Within Last Twelve Months: Other (See Below) (Has used artificial cigarettes but denies ever raping) Used Tobacco, but Quit: No Smoking Cessation Information Provided To Patient: Patient Refused Second Hand Smoke Exposure: Yes Second Hand Smoke Education Provided: Patient Refused - Tobacco Core Measures Tobacco Use/Smoking Within Last 30 Days: Refused Screening - Caffeine Use Caffeine Use: Reports: Coffee, Energy Drinks, Soda - Alcohol Use Alcohol Use History: Yes Alcohol Use Frequency: Socially - Recreational Drug Use Recreational Drug Type: Reports: Marijuana/Hashish Recreational Drug Use Frequency: Socially Recreational Drug Route: Reports: Inhaled - Living Situation & Occupation Living situation: Reports: with Significant Other Occupation: Unemployed ED ROS GENERAL - Review of Systems Review Of Systems: See Below Constitutional: Reports: Chills HEENT: Reports: No Symptoms Respiratory: Reports: Shortness of Breath Cardiovascular: Reports: Lightheadedness, Syncope (Near syncope) Endocrine: Reports: No Symptoms GI/Abdominal: Reports: No Symptoms, Vomiting (1 event prior to arrival) : Reports: No Symptoms Musculoskeletal: Reports: Back Pain, Leg Pain, Other Skin: Reports: Pruritis, Wound, Other (Scratching picking to arms) Neurological: Reports: Syncope (Near syncope), Other (Spasm) Psychiatric: Reports: Depression (Currently with medication treatment.) Hematologic/Lymphatic: Reports: No Symptoms Immunologic: Reports: No Symptoms ED EXAM, GENERAL - Physical Exam Exam: See Below Free Text/Narrative:: Noted to have some spasming to the torso at times. Also when he is speaking to me I notice significant variation in manipulation of his mandible consistent with TMJ. Reevaluation shows a definitive click bilateral left greater than right of the TMJ region. He speaks of muffled hearing at times which seemingly coincides with his yawning /opening of the jaw likely attributed to fluid. Strongly encourage follow-up in the clinic in the next week for reassessment of creatinine as well as discussion and review of TMJ and eustachian tube dysfunction. General Appearance: Alert, WD/WN, No Apparent Distress Ears: Normal External Exam, Normal Canal, Hearing Grossly Normal Nose: Normal Inspection, Normal Mucosa, No Blood Throat/Mouth: Normal Inspection, Normal Lips, Normal Oropharynx, Normal Voice, No Airway Compromise Head: Atraumatic, Normocephalic Neck: Normal Inspection, Supple, Non-Tender, Full Range of Motion Respiratory/Chest: No Respiratory Distress, Chest Non-Tender, Rhonchi (Current rhonchi attributed to his smoking changes with forced exhalation.). No: Respiratory Distress Cardiovascular: Normal Peripheral Pulses, Regular Rate, Rhythm, No Edema, No Murmur GI/Abdominal: Normal Bowel Sounds, Soft, No Organomegaly, No Distention, No Mass , Tender (Mild tenderness in the epigastric region on initial exam was not reproducible.) (Male) Exam: Deferred Rectal (Males) Exam: Deferred Back Exam: Normal Inspection, Full Range of Motion Extremities: Normal Range of Motion, Non-Tender, No Pedal Edema, Other ( Irritation to the upper extremities bilateral left greater than right from picking scratching) Neurological: Alert, Oriented, CN II-XII Intact, Normal Cognition, Normal Reflexes, No Motor/Sensory Deficits Psychiatric: Normal Affect, Normal Mood Skin Exam: Warm, Intact (Other than the arms.), Diaphoretic (Diaphoretic on arrival resolved) Lymphatic: No Adenopathy EKG INTERPRETATION EKG Date: 12/28/18 Time: 19:10 Rhythm: NSR Rate (Beats/Min): 77 [place]: Normal P-Wave: Present QRS: Normal ST-T: Normal QT: Normal Course - Vital Signs Last Recorded V/S: Last Vital Signs Temp 35.9 C 12/28/18 19:21 Pulse 83 12/28/18 19:21 Resp 13 12/28/18 19:21 BP 145/67 H 12/28/18 19:21 Pulse Ox 97 12/28/18 19:21 - Orders/Labs/Meds Orders: Active Orders 24 hr Category Date Time Status EKG Documentation Completion [RC] ASDIRECTED Care 12/28/18 19:08 Active Chest 2V [CR] Stat Exams 12/28/18 19:10 Taken Sodium Chloride 0.9% [Normal Saline] 1,000 ml Med 12/28/18 19:15 Active IV ASDIRECTED EKG 12 Lead [EK] Routine Ther 12/28/18 19:08 Ordered Medication Orders Sodium Chloride (Normal Saline) 1,000 mls @ 150 mls/hr IV ASDIRECTED [place] Last Admin: 12/28/18 19:15 Dose: 150 mls/hr Labs: Laboratory Tests 12/28/18 12/28/18 Range/Units 19:25 19:25 WBC 9.69 (5.00-10.00) 10^3/uL RBC 4.61 (4.50-6.00) 10^6/uL Hgb 16.7 (13.0-17.0) g/dL Hct 48.6 (40.0-52.0) % MCV 105.4 H (82.0-92.0) fL MCH 36.2 H (27.0-31.0) pg MCHC 34.4 (32.0-36.0) g/dL RDW 12.7 (11.5-14.5) % Plt Count 177 (150-400) 10^3/uL MPV 10.3 (7.4-10.4) fL Immature Gran % (Auto) 0.2 (0.0-5.0) % Neut % (Auto) 81.2 H (50.0-70.0) % Lymph % (Auto) 11.4 L (20.0-40.0) % [place] % (Auto) 6.2 (2.0-8.0) % Eos % (Auto) 0.7 L (1.0-3.0) % Baso % (Auto) 0.3 (0.0-1.0) % Immature Gran # (Auto) 0.02 (0.00-0.50) 10^3/uL Neut # (Auto) 7.87 H (2.50-7.00) 10^3/uL Lymph # (Auto) 1.10 (1.00-4.00) 10^3/uL [place] # (Auto) 0.60 (0.10-0.80) 10^3/uL Eos # (Auto) 0.07 L (0.10-0.30) 10^3/uL Baso # (Auto) 0.03 (0.00-0.10) 10^3/uL Sodium 142 (136-145) mmol/L Potassium 4.7 (3.3-5.3) mmol/L Chloride 105 (98-115) mmol/L Carbon Dioxide 26.0 (21.0-32.0) mmol/L Anion Gap 15.7 H (5-15) mmol/L BUN 14 (6-25) mg/dL Creatinine 1.50 H (0.51-1.17) mg/dL Est Cr Clr Drug Dosing TNP Estimated GFR (MDRD) 48 mL/min Glucose 161 H (75 - 99) mg/dL Calcium 10.0 (8.7-10.3) mg/dL Total Bilirubin 0.4 (0.2-1.0) mg/dL AST 14 L (15-37) U/L ALT 25 (12-78) U/L Alkaline Phosphatase 58 (46-116) IU/L Creatine Kinase 93 (26-276) U/L CK-MB (CK-2) 1.50 (0.00-4.30) ng/mL Troponin I 0.05 (0.00-0.070) ng/mL B-Natriuretic Peptide 93 (0-100) pg/mL Total Protein 7.3 (6.4-8.2) g/dL Albumin 4.08 (3.00-4.80) g/dL Meds: Medications Generic Name Dose Route Start Last Admin Trade Name Edq PRN Reason Stop Dose Admin Sodium Chloride 1,000 mls @ 150 mls/hr 12/28/18 19:15 12/28/18 19:15 Normal Saline IV 150 mls/hr ASDIRECTED [facility] Administration - Re-Assessments/Exams Free Text/Narrative Re-Assessment/Exam: 12/28/18 20:22 Discuss his eustachian tube dysfunction and TMJ in detail that may be contributing to some of the symptoms he is having. strongly encouraged to seek [place] services for further workup if unable to justify local visits. Departure - Departure Time of Disposition: 20:41 Disposition: Home, Self-Care 01 Condition: Good Clinical Impression: Near syncope, Renal failure (ARF), acute on chronic, TMJ (temporomandibular joint disorder), Eustachian tube dysfunction, Smoking addiction - Discharge Information *PRESCRIPTION DRUG MONITORING PROGRAM REVIEWED*: Not Applicable *COPY OF PRESCRIPTION DRUG MONITORING REPORT IN PATIENT MAULIK: Not Applicable Instructions: Acute Kidney Injury, Adult, Temporomandibular Joint Syndrome, Near-Syncope Referrals: Vanessa Martinez MD [Primary Care Provider] - Forms: ED Department Discharge Additional Instructions: Home and rest to make sure you have adequate fluid intake. No alcohol the next 24 hours. Make sure to continue your medications as directed, the 3-4 days you went without them may be affecting your therapeutic levels. You are now starting over with loading/building back up to therapeutic levels. Eustachian tube dysfunction will improve if you were to quit smoking. TMJ needs to be evaluated by dentist or maxillofacial specialty as a bite guard may be beneficial. Continue working with the veterans services to find out if you're eligible as that would be an option for TMJ treatment and dental evaluation in general. ENT will also be an option for evaluating your TMJ and eustachian tube dysfunction. You need follow-up in the clinic in the next 5-7 days for reevaluation of laboratory analysis to show stability and hopefully improvement of your creatinine which measures your renal function. (Kidneys) Part of your symptoms may be related to viral illnesses/exposures, has all testing has shown no evidence of bacterial infection, and no evidence of heart involvement. Good hygiene and avoid exposures to illness are recommended. - Problem List & Annotations (1) Near syncope SNOMED Code(s): 565394481 Code(s): R55 - SYNCOPE AND COLLAPSE Status: Acute Priority: High Current Visit: Yes Onset Date: ~12/28/18 (2) Lumbar paraspinal muscle spasm SNOMED Code(s): 98902684134840839, 67052755303708536 Code(s): M62.830 - MUSCLE SPASM OF BACK Status: Chronic Priority: Medium Current Visit: No (3) DJD (degenerative joint disease), lumbosacral SNOMED Code(s): 082370400, 997365410, 612276263, 018358525 Code(s): M47.817 - SPONDYLS W/O MYELOPATHY OR RADICULOPATHY, LUMBOSACR REGION Status: Acute Current Visit: No (4) Renal failure (ARF), acute on chronic SNOMED Code(s): 263723755 Code(s): N17.9 - ACUTE KIDNEY FAILURE, UNSPECIFIED; N18.9 - CHRONIC KIDNEY DISEASE, UNSPECIFIED Status: Acute Current Visit: Yes Qualifiers: Chronic kidney disease stage: stage 2 (mild) (5) TMJ (temporomandibular joint disorder) SNOMED Code(s): 75951541 Code(s): M26.609 - UNSPECIFIED TMJ JOINT DISORDER, UNSPECIFIED SIDE Status : Chronic Priority: Medium Current Visit: Yes (6) Eustachian tube dysfunction SNOMED Code(s): 43846354 Code(s): H69.80 - OTH DISRD OF EUSTACHIAN TUBE, UNSPECIFIED EAR Status: Chronic Priority: Medium Current Visit: Yes Qualifiers: Laterality: bilateral Qualified Code(s): H69.83 - Other specified disorders of Eustachian tube, bilateral (7) Smoking addiction SNOMED Code(s): 798739020, 97065940, 660196666 Code(s): F17.200 - NICOTINE DEPENDENCE, UNSPECIFIED, UNCOMPLICATED Status: Acute Current Visit: Yes - Problem List Review Problem List Initiated/Reviewed/Updated: Yes - My Orders Last 24 Hours: My Active Orders 12/28/18 19:08 EKG Documentation Completion [RC] ASDIRECTED EKG 12 Lead [EK] Routine 12/28/18 19:10 Chest 2V [CR] Stat 12/28/18 19:15 Sodium Chloride 0.9% [Normal Saline] 1,000 ml IV ASDIRECTED - Assessment/Plan Last 24 Hours: My Active Orders 12/28/18 19:08 EKG Documentation Completion [RC] ASDIRECTED EKG 12 Lead [EK] Routine 12/28/18 19:10 Chest 2V [CR] Stat 12/28/18 19:15 Sodium Chloride 0.9% [Normal Saline] 1,000 ml IV ASDIRECTED Plan: Home and rest to make sure you have adequate fluid intake. No alcohol the next 24 hours. Make sure to continue your medications as directed, the 3-4 days you went without them may be affecting your therapeutic levels. You are now starting over with loading/building back up to therapeutic levels. Eustachian tube dysfunction will improve if you were to quit smoking. TMJ needs to be evaluated by dentist or maxillofacial specialty as a bite guard may be beneficial. Continue working with the veterans services to find out if you're eligible as that would be an option for TMJ treatment and dental evaluation in general. ENT will also be an option for evaluating your TMJ and eustachian tube dysfunction. You need follow-up in the clinic in the next 5-7 days for reevaluation of laboratory analysis to show stability and hopefully improvement of your creatinine which measures your renal function. (Kidneys) Part of your symptoms may be related to viral illnesses/exposures, has all testing has shown no evidence of bacterial infection, and no evidence of heart involvement. Good hygiene and avoid exposures to illness are recommended.
[2018-12-28] MEDS ORDERED: Sodium Chloride 0.9% 1,000 ML IV SCH (19:15)
[2018-12-28 20:04] LABS: ANION GAP 15.7 mmol/L (5-15); CHLORIDE,CL 105 mmol/L (98-115); SODIUM,NA 142 mmol/L (136-145)
--- NOTE | 2018-12-28 20:12 | CR ---
[id number] RAD/RAD Chest PA And Lateral EXAM: RAD Chest PA And Lateral INDICATION: SYNCOPE COMPARISON: January 17, 2018. DISCUSSION: Cardiomediastinal silhouette is normal in size and contour. No infiltrate, effusion, pneumothorax, or edema. IMPRESSION: No acute findings in the chest. Sam Villasenor MD 12/28/182010 Thank you for allowing us to participate in the care of your patient.
[2018-12-28 21:29] VITALS: BP 134/67; PULSE 72
== END 2018-12-28 20:50 | disposition home or self-care (01) ==
LOC: KA.ED 18:55
DX: R55 Syncope and collapse (principal); N17.9 Acute kidney failure, unspecified; M26.609 Unspecified temporomandibular joint disorder, unspecified side; H69.90 Unspecified Eustachian tube disorder, unspecified ear; I25.2 Old myocardial infarction; I10 Essential (primary) hypertension; F17.290 Nicotine dependence, other tobacco product, uncomplicated; F32.9 Major depressive disorder, single episode, unspecified; F41.9 Anxiety disorder, unspecified; K21.9 Gastro-esophageal reflux disease without esophagitis; Z79.82 Long term (current) use of aspirin; Z79.899 Other long term (current) drug therapy; Z88.5 Allergy status to narcotic agent; Z95.5 Presence of coronary angioplasty implant and graft
CPT/HCPCS: 36415; 71046; 80053; 82550; 82553; 83880; 84484; 85025; 93005; 96360; 99284; J7030

== ENCOUNTER 2018-12-31 12:10 | Emergency (ER) | payer MEDICAID ==
--- NOTE | 2018-12-31 12:43 | EDM.PDOC ---
ED HPI GENERAL MEDICAL PROBLEM - General Chief Complaint: General Stated Complaint: WEAKNESS Time Seen by Provider: 12/31/18 12:19 Source of Information: Reports: Patient, EMS, EMS Notes Reviewed History Limitations: Reports: No Limitations - History of Present Illness Onset: Gradual Duration: Day(s): Location: Reports: Generalized Severity: Mild Improves with: Reports: None Worsens with: Reports: None Associated Symptoms: Reports: Confusion, Weakness. Denies: Chest Pain, Fever/ Chills, Nausea/Vomiting, Shortness of Breath, Syncope - Related Data Allergies Allergy/AdvReac Type Severity Reaction Status Date / Time codeine Allergy Dizziness Verified 12/31/18 12:22 #NO NARCOTICS AdvReac Severe Other Uncoded 12/31/18 12:22 Home Meds: Home Meds buPROPion [buPROPion XL] 100 mg PO DAILY 08/08/14 [History] Citalopram [Citalopram HBr] 40 mg PO DAILY 12/01/15 [History] lamoTRIgine [Lamotrigine] 200 mg PO BEDTIME 12/01/15 [History] Omeprazole 40 mg PO BID 10/10/16 [History] Aspirin 81 mg PO DAILY 01/17/18 [History] Nitroglycerin [Nitrostat] 0.4 mg SL ONETIME 01/17/18 [History] busPIRone [Buspar] 5 mg PO TID 01/17/18 [History] Metoprolol Tartrate 25 mg PO BID 12/08/18 [History] atorvaSTATin [Lipitor] 10 mg PO BEDTIME 12/08/18 [History] Baclofen 20 mg PO QID 12/28/18 [History] Past Medical History HEENT History: Reports: Impaired Vision Cardiovascular History: Reports: Hypertension, [place], Stents Other Cardiovascular History: [place] in 2005 with one stent placed, [place] in 2010 with 2 stents placed. Respiratory History: Reports: Sleep Apnea Gastrointestinal History: Reports: GERD, Hiatal Hernia Other Gastrointestinal History: H. Pylori Musculoskeletal History: Reports: Back Pain, Chronic, Other (See Below) Other Musculoskeletal History: fractured fibula Feb 2017 Psychiatric History: Reports: Anxiety, Depression - Infectious Disease History Infectious Disease History: Reports: Chicken Pox, Measles, Mumps - Past Surgical History Cardiovascular Surgical History: Reports: Coronary Artery Stent Respiratory Surgical History: Reports: None GI Surgical History: Reports: None Musculoskeletal Surgical History: Reports: Arthroscopic Knee, Other (See Below) Other Musculoskeletal Surgeries/Procedures:: plate in the R ankle - Past Imaging History Past Imaging History: Reports: Xray Social & Family History - Family History Family Medical History: Noncontributory Cardiac: Reports: [place] - Caffeine Use Caffeine Use: Reports: Coffee, Energy Drinks, Soda - Living Situation & Occupation Living situation: Reports: with Significant Other Occupation: Unemployed ED ROS GENERAL - Review of Systems Review Of Systems: Comprehensive ROS is negative, except as noted in HPI. Constitutional: Reports: Malaise, Weakness HEENT: Reports: No Symptoms Respiratory: Reports: No Symptoms Cardiovascular: Reports: No Symptoms Endocrine: Reports: No Symptoms GI/Abdominal: Reports: No Symptoms : Reports: No Symptoms Musculoskeletal: Reports: No Symptoms Skin: Reports: No Symptoms Neurological: Reports: Confusion, Weakness. Denies: Headache, Numbness, Paresthesia, Syncope, Trouble Speaking, Change in Speech Psychiatric: Reports: No Symptoms Hematologic/Lymphatic: Reports: No Symptoms Immunologic: Reports: No Symptoms ED EXAM, GENERAL - Physical Exam Exam: See Below Exam Limited By: No Limitations General Appearance: Alert, No Apparent Distress, Other (Disheveled) Eye Exam: Bilateral Eye: Normal Inspection Nose: Normal Inspection, Normal Mucosa, No Blood Throat/Mouth: Normal Inspection, Normal Oropharynx, No Airway Compromise Head: Atraumatic, Normocephalic Neck: Normal Inspection, Supple, Non-Tender, Full Range of Motion Respiratory/Chest: No Respiratory Distress, Lungs Clear, Normal Breath Sounds, No Accessory Muscle Use, Chest Non-Tender Cardiovascular: Normal Peripheral Pulses, Regular Rate, Rhythm, No Murmur GI/Abdominal: Normal Bowel Sounds, Soft, Non-Tender, No Organomegaly, No Distention, No Abnormal Bruit, No Mass, Pelvis Stable Back Exam: Normal Inspection. No: CVA Tenderness (L), CVA Tenderness (R) Extremities: Normal Inspection, No Pedal Edema Neurological: Alert, Oriented, Slow to Respond Psychiatric: Flat Affect Skin Exam: Warm, Dry, Intact, Normal Color, No Rash Lymphatic: No Adenopathy EKG INTERPRETATION EKG Date: 12/31/18 Time: 12:30 Rhythm: NSR Rate (Beats/Min): 71 [place]: Normal P-Wave: Present QRS: Normal ST-T: Normal QT: Normal Comparison: No Change Course - Vital Signs Last Recorded V/S: Last Vital Signs Temp 95.8 F 12/31/18 12:16 Pulse 80 12/31/18 12:16 Resp 10 L 12/31/18 12:16 BP 156/94 H 12/31/18 12:16 Pulse Ox 97 12/31/18 12:16 - Orders/Labs/Meds Orders: Active Orders 24 hr Category Date Time Status EKG Documentation Completion [RC] ASDIRECTED Care 12/31/18 12:23 Ordered Head wo Cont [CT] Stat Exams 12/31/18 12:24 Ordered CBC WITH AUTO DIFF [HEME] Stat Lab 12/31/18 12:23 Ordered COMPREHENSIVE METABOLIC PN,CMP [CHEM] Stat Lab 12/31/18 12:23 Ordered CREATINE KINASE,CK [CHEM] Stat Lab 12/31/18 12:23 Ordered DRUG SCREEN, URINE [URCHEM] Stat Lab 12/31/18 12:23 Ordered ETHANOL BLOOD MEDICAL [CHEM] Stat Lab 12/31/18 12:23 Ordered EKG 12 Lead [EK] Routine Ther 12/31/18 12:23 Ordered - Radiology Interpretation Free Text/Narrative:: Chest x-ray shows no acute cardiopulmonary process. CT head shows no acute intracranial process - Re-Assessments/Exams Free Text/Narrative Re-Assessment/Exam: 12/31/18 14:42 Patient afebrile, vital signs stable, resting comfortably. Discussed case with Ruchi Camarena, patient will follow-up with her next week. Departure - Departure Time of Disposition: 14:43 Disposition: Home, Self-Care 01 Condition: Good Clinical Impression: Weakness, Factitious disorder - Discharge Information Instructions: Weakness, [id number], Fatigue, Cannabis Use Disorder Referrals: Ruchi Camarena PA-C [Primary Care Provider] - Additional Instructions: Follow-up at clinic on Thursday. Return to emergency department sooner if symptoms continue or worsen - My Orders Last 24 Hours: My Active Orders 12/31/18 12:23 EKG Documentation Completion [RC] ASDIRECTED CBC WITH AUTO DIFF [HEME] Stat COMPREHENSIVE METABOLIC PN,CMP [CHEM] Stat CREATINE KINASE,CK [CHEM] Stat DRUG SCREEN, URINE [URCHEM] Stat ETHANOL BLOOD MEDICAL [CHEM] Stat EKG 12 Lead [EK] Routine 12/31/18 12:24 Head wo Cont [CT] Stat - Assessment/Plan Last 24 Hours: My Active Orders 12/31/18 12:23 EKG Documentation Completion [RC] ASDIRECTED CBC WITH AUTO DIFF [HEME] Stat COMPREHENSIVE METABOLIC PN,CMP [CHEM] Stat CREATINE KINASE,CK [CHEM] Stat DRUG SCREEN, URINE [URCHEM] Stat ETHANOL BLOOD MEDICAL [CHEM] Stat EKG 12 Lead [EK] Routine 12/31/18 12:24 Head wo Cont [CT] Stat Assessment:: Weakness Plan: Follow-up at clinic
--- NOTE | 2018-12-31 13:10 | CT ---
[id number] CT/CT Head WO IV EXAM: NONCONTRAST HEAD CT INDICATION: AMS. COMPARISON: None. DISCUSSION: There is mild generalized atrophy. Mild multifocal white matter hypoattenuation is nonspecific, but generally ascribed to chronic small vessel ischemia. No mass effect or midline shift. No acute hemorrhage or extra-axial fluid collection. No acute territorial infarct is identified. A limited look at the orbits and paranasal sinuses is unremarkable. IMPRESSION: 1. Negative exam. Ezequiel Stevens MD 12/31/18 2113 Thank you for allowing us to participate in the care of your patient.
[2018-12-31 13:14] LABS: ANION GAP 14.7 mmol/L (5-15); CHLORIDE,CL 107 mmol/L (98-115); SODIUM,NA 145 mmol/L (136-145)
[2018-12-31 13:29] LABS: BARBITURATE SCREEN,URINE NEGATIVE (NEGATIVE); BENZODIAZEPINES SCREEN,URINE NEGATIVE (NEGATIVE)
[2018-12-31 13:30] LABS: TCA SCREEN,URINE NEGATIVE (NEGATIVE); THC SCREEN,URINE 50 NG/ML POSITIVE (NEGATIVE)
[2018-12-31] MEDS ORDERED: Sodium Chloride 0.9% 1,000 ML IV ONE (13:34)
[2018-12-31 14:09] VITALS: BP 122/57; PULSE 72
== END 2018-12-31 16:40 | disposition home or self-care (01) ==
LOC: KA.ED 12:10
DX: R53.1 Weakness (principal); F68.10 Factitious disorder imposed on self, unspecified; I10 Essential (primary) hypertension; I25.2 Old myocardial infarction; K21.9 Gastro-esophageal reflux disease without esophagitis; F41.9 Anxiety disorder, unspecified; F32.9 Major depressive disorder, single episode, unspecified; Z95.5 Presence of coronary angioplasty implant and graft; Z88.5 Allergy status to narcotic agent; Z79.82 Long term (current) use of aspirin; Z79.899 Other long term (current) drug therapy
CPT/HCPCS: 36415; 70450; 80053; 80305; 80320; 82550; 85025; 93005; 96360; 99285; J7030; 99284; G0480

== ENCOUNTER 2019-01-14 23:15 | Emergency (ER) | payer SELFPAY ==
[2019-01-14 23:45] VITALS: BP 162/75; PULSE 76
[2019-01-15] MEDS: Ketorolac 30 MG/ML SDV IM ONE (00:25)
--- NOTE | 2019-01-15 00:40 | EDM.PDOC ---
ED HPI GENERAL MEDICAL PROBLEM - General Chief Complaint: General Stated Complaint: L2 - L3 back pain Time Seen by Provider: 01/15/19 00:00 Source of Information: Reports: Patient History Limitations: Reports: No Limitations - History of Present Illness INITIAL COMMENTS - FREE TEXT/NARRATIVE: 58-year-old male presents emergency room with complaints of chronic low back pain. He is a frequent flyer in the emergency room and has wanted pain medications in the past for his chronic low back pain. He has a history of narcotic abuse and no narcotics to be are listed in his chart. He does take 2000 mg of Tylenol a day for his back pain as well as baclofen. He has referral for pain management up in [place] but has not proceeded yet with this appointment. He denies any new complaints other than his chronicity of his low back pain. He's not having any bowel or bladder incontinence. No paresthesias. He denies of any significance of radicular pain or stenosis complaints. Duration: Chronic Location: Reports: Back Quality: Reports: Ache Severity: Moderate Improves with: Reports: Medication Worsens with: Reports: Movement Associated Symptoms: Reports: No Other Symptoms Treatments SLIDE MACHINE TENDER: Reports: Acetaminophen, Other Medication(s) Bilateral Lower Back Pain Score (Numeric/FACES): 10 - Related Data Allergies Allergy/AdvReac Type Severity Reaction Status Date / Time codeine Allergy Dizziness Verified 01/14/19 23:58 #NO NARCOTICS AdvReac Severe Other Uncoded 01/14/19 23:58 Home Meds: Home Meds buPROPion [buPROPion XL] 100 mg PO DAILY 08/08/14 [History] Citalopram [Citalopram HBr] 40 mg PO DAILY 12/01/15 [History] lamoTRIgine [Lamotrigine] 200 mg PO BEDTIME 12/01/15 [History] Omeprazole 40 mg PO BID 10/10/16 [History] Aspirin 81 mg PO DAILY 01/17/18 [History] Nitroglycerin [Nitrostat] 0.4 mg SL ONETIME PRN 01/17/18 [History] busPIRone [Buspar] 5 mg PO TID PRN 01/17/18 [History] Metoprolol Tartrate 25 mg PO BID 12/08/18 [History] atorvaSTATin [Lipitor] 10 mg PO BEDTIME 12/08/18 [History] Baclofen 20 mg PO QID 12/28/18 [History] Past Medical History HEENT History: Reports: Impaired Vision Other HEENT History: wears glasses Cardiovascular History: Reports: Hypertension, DC, Stents Other Cardiovascular History: DC in 2005 with one stent placed, DC in 2010 with 2 stents placed. Respiratory History: Reports: Sleep Apnea Gastrointestinal History: Reports: GERD, Hiatal Hernia Other Gastrointestinal History: H. Pylori Musculoskeletal History: Reports: Back Pain, Chronic, Other (See Below) Other Musculoskeletal History: fractured fibula Feb 2017 Psychiatric History: Reports: Anxiety, Depression - Infectious Disease History Infectious Disease History: Reports: Chicken Pox, Measles, Mumps - Past Surgical History Cardiovascular Surgical History: Reports: Coronary Artery Stent Respiratory Surgical History: Reports: None GI Surgical History: Reports: None Musculoskeletal Surgical History: Reports: Arthroscopic Knee, Other (See Below) Other Musculoskeletal Surgeries/Procedures:: plate in the R ankle - Past Imaging History Past Imaging History: Reports: Xray Social & Family History - Family History Family Medical History: Noncontributory Cardiac: Reports: DC - Tobacco Use Smoking Status *Q: Current Every Day Smoker Years of Tobacco use: 40 Packs/Tins Daily: 1 Used Tobacco, but Quit: No Second Hand Smoke Exposure: No - Caffeine Use Caffeine Use: Reports: Coffee, Energy Drinks, Soda - Alcohol Use Days Per Week of Alcohol Use: 2 Number of Drinks Per Day: 0 Total Drinks Per Week: 0 - Recreational Drug Use Recreational Drug Use: No - Living Situation & Occupation Living situation: Reports: with Significant Other Occupation: Unemployed ED ROS GENERAL - Review of Systems Review Of Systems: Comprehensive ROS is negative, except as noted in HPI. ED EXAM, GENERAL - Physical Exam Exam: See Below Exam Limited By: No Limitations General Appearance: Alert, WD/WN, No Apparent Distress Ears: Hearing Grossly Normal Nose: Normal Inspection Throat/Mouth: Normal Voice Head: Atraumatic Respiratory/Chest: No Respiratory Distress Back Exam: Normal Inspection, Paraspinal Tenderness Extremities: Normal Inspection Neurological: Alert, Oriented, No Motor/Sensory Deficits Psychiatric: Depressed Mood Skin Exam: Warm, Dry, Intact, Normal Color, No Rash, Other (He has sores overlying his forearms from scratching) Course - Vital Signs Last Recorded V/S: Last Vital Signs Temp 96.5 F 01/14/19 23:15 Pulse 76 12/06/19 23:15 Resp 20 01/14/19 23:15 BP 162/75 H 01/14/19 23:15 Pulse Ox 96 01/14/19 23:15 - Orders/Labs/Meds Meds: Medications Discontinued Medications Generic Name Dose Route Start Last Admin Trade Name Wilner PRN Reason Stop Dose Admin Ketorolac Tromethamine 30 mg 01/15/19 00:19 01/15/19 00:25 Toradol IM 01/15/19 00:20 30 mg ONETIME ONE Administration - Re-Assessments/Exams Free Text/Narrative Re-Assessment/Exam: 01/15/19 00:39 Toradol 30 mg IM given Departure - Departure Time of Disposition: 00:39 Disposition: Home, Self-Care 01 Condition: Good Clinical Impression: Narcotic abuse, episodic - Discharge Information Instructions: Chronic Back Pain, [id number] Forms: ED Department Discharge - Assessment/Plan Assessment:: Chronic low back pain Episodic narcotic abuse history Plan: 1. Toradol 30 mg IM given today 2. Patient will follow-up with chronic pain management appointment 3. Continue home routine of Tylenol, baclofen, Lidoderm patches
== END 2019-01-15 00:45 | disposition home or self-care (01) ==
LOC: KA.ED 23:15
DX: M54.5 Low back pain (principal); G89.29 Other chronic pain; F11.10 Opioid abuse, uncomplicated; I10 Essential (primary) hypertension; I25.2 Old myocardial infarction; F17.210 Nicotine dependence, cigarettes, uncomplicated; F41.9 Anxiety disorder, unspecified; F32.9 Major depressive disorder, single episode, unspecified; Z79.82 Long term (current) use of aspirin; Z79.899 Other long term (current) drug therapy; Z88.5 Allergy status to narcotic agent
CPT/HCPCS: 96372; 99283; J1885

== ENCOUNTER 2019-02-08 12:30 | Emergency (ER) | payer SELFPAY ==
--- NOTE | 2019-02-08 12:48 | EDM.PDOC ---
ED HPI GENERAL MEDICAL PROBLEM - General Chief Complaint: Chest Pain Stated Complaint: CHEST PAIN Time Seen by Provider: 02/08/19 12:40 Source of Information: Reports: Patient History Limitations: Reports: No Limitations - History of Present Illness INITIAL COMMENTS - FREE TEXT/NARRATIVE: The outside blowing snow, chopping snow to allow blower to handle a large drift. [place] some pressure rested with mild improvement and then restarted developing worsening pain. Used 1, 0.4 nitroglycerin sublingual at home with minimal improvement. Summonsed EMS and upon their arrival his blood pressure was 77/69 secondary of aforementioned findings. Repeat blood pressure as they loaded for transport shows heart rate is 61, blood pressure 123/75, and saturations of 99% as they've implemented nasal cannula oxygen. As you arrives to the emergency department he is still slightly diaphoretic, points to his right breast area when asked location of pain, stating it does not go anywhere, no radiation into the arm or neck as previous. He acknowledges at this time that he has been out of the majority of his medications for the past week. Onset: Today, Sudden Onset Date: 02/08/19 Onset Time: 12:00 Duration: Minutes: Location: Reports: Chest Quality: Reports: Burning, Pressure Severity: Severe Improves with: Reports: None Worsens with: Reports: None Context: Reports: Exercise, Lifting Associated Symptoms: Reports: Nausea/Vomiting Treatments HYDROLOGIC MODELER: Reports: Nitroglycerin - Related Data Allergies Allergy/AdvReac Type Severity Reaction Status Date / Time codeine Allergy Dizziness Verified 01/14/19 23:58 #NO NARCOTICS AdvReac Severe Other Uncoded 01/14/19 23:58 Home Meds: Home Meds buPROPion [buPROPion XL] 100 mg PO DAILY 08/08/14 [History] Citalopram [Citalopram HBr] 40 mg PO DAILY 12/01/15 [History] lamoTRIgine [Lamotrigine] 200 mg PO BEDTIME 12/01/15 [History] Omeprazole 40 mg PO BID 10/10/16 [History] Aspirin 81 mg PO DAILY 01/17/18 [History] Nitroglycerin [Nitrostat] 0.4 mg SL ONETIME PRN 01/17/18 [History] busPIRone [Buspar] 5 mg PO TID PRN 01/17/18 [History] Metoprolol Tartrate 25 mg PO BID 12/08/18 [History] atorvaSTATin [Lipitor] 10 mg PO BEDTIME 12/08/18 [History] Baclofen 20 mg PO QID 12/28/18 [History] Past Medical History HEENT History: Reports: Impaired Vision Other HEENT History: wears glasses Cardiovascular History: Reports: Hypertension, OR, Stents Other Cardiovascular History: OR in 2005 with one stent placed, OR in 2010 with 2 stents placed. Respiratory History: Reports: Sleep Apnea Gastrointestinal History: Reports: GERD, Hiatal Hernia Other Gastrointestinal History: H. Pylori Musculoskeletal History: Reports: Back Pain, Chronic, Other (See Below) Other Musculoskeletal History: fractured fibula Feb 2017 Psychiatric History: Reports: Anxiety, Depression - Infectious Disease History Infectious Disease History: Reports: Chicken Pox, Measles, Mumps - Past Surgical History Cardiovascular Surgical History: Reports: Coronary Artery Stent Respiratory Surgical History: Reports: None GI Surgical History: Reports: None Musculoskeletal Surgical History: Reports: Arthroscopic Knee, Other (See Below) Other Musculoskeletal Surgeries/Procedures:: plate in the R ankle - Past Imaging History Past Imaging History: Reports: Xray Social & Family History - Family History Family Medical History: Noncontributory Cardiac: Reports: OR - Caffeine Use Caffeine Use: Reports: Coffee, Energy Drinks, Soda - Living Situation & Occupation Living situation: Reports: with Significant Other Occupation: Unemployed ED ROS GENERAL - Review of Systems Review Of Systems: See Below Constitutional: Reports: No Symptoms HEENT: Reports: No Symptoms Respiratory: Reports: No Symptoms Cardiovascular: Reports: Chest Pain Endocrine: Reports: No Symptoms GI/Abdominal: Reports: No Symptoms : Reports: No Symptoms Musculoskeletal: Reports: No Symptoms Skin: Reports: No Symptoms Neurological: Reports: No Symptoms Psychiatric: Reports: No Symptoms Hematologic/Lymphatic: Reports: No Symptoms Immunologic: Reports: No Symptoms ED EXAM, GENERAL - Physical Exam Exam: See Below Free Text/Narrative:: Gerry, 58-year-old male, with known cardiac history. Was chopping snow, to facilitate his gold blower today when he had a short episode of pressure. He rested shortly then pain recurred with activity. Took one nitroglycerin sublingual 0.4 with minimal improvement of pain rated as 10 on a scale of 10. He was diaphoretic upon arrival in ambulance and was noted hypotensive on initial reading. Pain is nonradiating. Vitals were within normal limits please see note, upon his arrival. HEENT negative to discharge or deformity. PERRLA no icterus no injection. Neck soft supple no lymphadenopathy. Thorax is raspy throughout, attributed to his smoking. Pain to palpation of the right breast area. Abdomen soft nontender. No edema to the lower extremities. rectal is deferred. Numerous skin excoriation areas which is chronic. Pain improves to 5 after TNK administration. Heparin drip and nitroglycerin drip are implemented. ETA [facility] 1350 Exam Limited By: No Limitations EKG INTERPRETATION EKG Date: 02/08/19 Rhythm: NSR P-Wave: Present ST-T: Elevated QT: Normal Comparison: Change From Previous EKG Course - Orders/Labs/Meds Orders: Active Orders 24 hr Category Date Time Status EKG Documentation Completion [RC] ASDIRECTED Care 02/08/19 12:42 Active CK W CKMB [CHEM] Stat Lab 02/08/19 12:50 Received COMPREHENSIVE METABOLIC PN,CMP [CHEM] Stat Lab 02/08/19 12:50 Received PTT,PARTIAL THROMBOPLSTIN TIME [COAG] Stat Lab 02/08/19 12:50 Received TROPONIN I [CHEM] Stat Lab 02/08/19 12:50 Received Heparin Sodium/D5W 250 ml Med 02/08/19 13:15 Ordered IV TITRATE Nitroglycerin 25 MG in D5W @ 10 MCG/MIN (250ml) Premix Med 02/08/19 13:15 Ordered Nitroglycerin/D5W [Nitroglycerin 50 MG/D5W 250 ML] 50 mg in 250 ml IV TITRATE EKG 12 Lead [EK] Routine Ther 02/08/19 12:42 Ordered Medication Orders Heparin Sodium/Dextrose () 250 mls @ 0 mls/hr IV TITRATE [place]; Protocol Nitroglycerin/Dextrose (Nitroglycerin 50 Mg/D5w 250 Ml) 50 mg in 250 mls @ 3 mls/hr IV TITRATE [place] Labs: Laboratory Tests 02/08/19 Range/Units 12:50 WBC 11.40 H (5.00-10.00) 10^3/uL RBC 4.61 (4.50-6.00) 10^6/uL Hgb 16.1 (13.0-17.0) g/dL Hct 47.5 (40.0-52.0) % MCV 103.0 H (82.0-92.0) fL MCH 34.9 H (27.0-31.0) pg MCHC 33.9 (32.0-36.0) g/dL RDW 12.6 (11.5-14.5) % Plt Count 208 (150-400) 10^3/uL MPV 9.9 (7.4-10.4) fL Immature Gran % (Auto) 0.4 (0.0-5.0) % Neut % (Auto) 64.7 (50.0-70.0) % Lymph % (Auto) 23.2 (20.0-40.0) % [place] % (Auto) 9.2 H (2.0-8.0) % Eos % (Auto) 2.0 (1.0-3.0) % Baso % (Auto) 0.5 (0.0-1.0) % Immature Gran # (Auto) 0.04 (0.00-0.50) 10^3/uL Neut # (Auto) 7.37 H (2.50-7.00) 10^3/uL Lymph # (Auto) 2.65 (1.00-4.00) 10^3/uL [place] # (Auto) 1.05 H (0.10-0.80) 10^3/uL Eos # (Auto) 0.23 (0.10-0.30) 10^3/uL Baso # (Auto) 0.06 (0.00-0.10) 10^3/uL Meds: Medications Generic Name Dose Route Start Last Admin Trade Name Wilner PRN Reason Stop Dose Admin Heparin Sodium/Dextrose 250 mls @ 0 mls/hr 02/08/19 13:15 IV TITRATE [place] Protocol 1,980 UNITS/KG/HR Nitroglycerin/Dextrose 50 mg in 250 mls @ 3 mls/hr 02/08/19 13:15 Nitroglycerin 50 Mg/D5w 250 Ml IV TITRATE [place] 10 MCG/MIN Discontinued Medications Generic Name Dose Route Start Last Admin Trade Name Wilner PRN Reason Stop Dose Admin Aspirin 324 mg 02/08/19 12:51 Aspirin PO 02/08/19 12:52 ONETIME ONE Aspirin Confirm 02/08/19 12:51 Aspirin Administered 02/08/19 12:52 Dose 324 mg .ROUTE .STK-MED ONE Clopidogrel Bisulfate 150 mg 02/08/19 13:04 Plavix PO 02/08/19 13:05 ONETIME ONE Heparin Sodium (Porcine) 5,000 units 02/08/19 13:09 Heparin Sodium IVPUSH 02/08/19 13:10 ONETIME ONE Tenecteplase 50 mg 02/08/19 12:53 Tnkase IV 02/08/19 12:54 NOW STA Protocol Departure - Departure Time of Disposition: 13:51 Disposition: DC/Tfer to Acute Hospital 02 Condition: Serious Clinical Impression: Acute coronary syndrome, Chest pain due to CAD, ST elevation (STEMI) myocardial infarction - Discharge Information *PRESCRIPTION DRUG MONITORING PROGRAM REVIEWED*: Not Applicable *COPY OF PRESCRIPTION DRUG MONITORING REPORT IN PATIENT MAULIK: Not Applicable Referrals: Ruchi Camarena PA-C [Primary Care Provider] - Forms: ED Department Discharge, Interfacility Transfer EMTALA Additional Instructions: Contact Dr. Ortiz, [facility], will accept transfer, flight being arranged. Will be treated as a STEMI code with EKG and all appropriate paperwork completed and faxed as well as provided to transport team. Sepsis Event Note - Focused Exam Date Exam was Performed: 02/08/19 Time Exam was Performed: 13:12 - Problem List & Annotations (1) ST elevation (STEMI) myocardial infarction SNOMED Code(s): 58481664 Code(s): I21.3 - ST ELEVATION (STEMI) MYOCARDIAL INFARCTION OF [facility] SITE Status: Acute Priority: High Current Visit: Yes (2) Chest pain due to CAD SNOMED Code(s): 596704690, 671575972 Code(s): R07.9 - CHEST PAIN, UNSPECIFIED; I25.10 - ATHSCL HEART DISEASE OF [place] CORONARY ARTERY W/O ANG PCTRS Status: Acute Priority: High Current Visit: No - Problem List Review Problem List Initiated/Reviewed/Updated: Yes - My Orders Last 24 Hours: My Active Orders 02/08/19 12:42 EKG Documentation Completion [RC] ASDIRECTED EKG 12 Lead [EK] Routine 02/08/19 12:50 CK W CKMB [CHEM] Stat COMPREHENSIVE METABOLIC PN,CMP [CHEM] Stat PTT,PARTIAL THROMBOPLSTIN TIME [COAG] Stat TROPONIN I [CHEM] Stat 02/08/19 13:15 Heparin Sodium/D5W 250 ml IV TITRATE Nitroglycerin 25 MG in D5W @ 10 MCG/MIN (250ml) Premix Nitroglycerin/D5W [ Nitroglycerin 50 MG/D5W 250 ML] 50 mg in 250 ml IV TITRATE - Assessment/Plan Last 24 Hours: My Active Orders 02/08/19 12:42 EKG Documentation Completion [RC] ASDIRECTED EKG 12 Lead [EK] Routine 02/08/19 12:50 CK W CKMB [CHEM] Stat COMPREHENSIVE METABOLIC PN,CMP [CHEM] Stat PTT,PARTIAL THROMBOPLSTIN TIME [COAG] Stat TROPONIN I [CHEM] Stat 02/08/19 13:15 Heparin Sodium/D5W 250 ml IV TITRATE Nitroglycerin 25 MG in D5W @ 10 MCG/MIN (250ml) Premix Nitroglycerin/D5W [ Nitroglycerin 50 MG/D5W 250 ML] 50 mg in 250 ml IV TITRATE Plan: Contact Dr. Ortiz, [facility], will accept transfer, flight being arranged. Will be treated as a STEMI code with EKG and all appropriate paperwork completed and faxed as well as provided to transport team.
[2019-02-08] MEDS ORDERED: Aspirin 81 MG Tab.Chew PO ONE (12:51)
[2019-02-08] MEDS ORDERED: Aspirin 81 MG Tab.Chew ONE (12:51)
[2019-02-08] MEDS ORDERED: Tenecteplase 50 MG Kit IV STA (12:53)
[2019-02-08] MEDS ORDERED: Clopidogrel 75 MG Tab PO ONE (13:04)
[2019-02-08] MEDS ORDERED: Heparin Sodium 5,000 Units/ML Vial IVPUSH ONE (13:09)
[2019-02-08] MEDS ORDERED: Sodium Chloride 0.9% 1,000 ML ONE (13:10)
[2019-02-08] MEDS ORDERED: Heparin Sodium/D5W 250 ML IV SCH (13:15)
--- NOTE | 2019-02-08 13:27 | CR ---
[id number] RAD/RAD Chest PA or AP 1V EXAM: RAD Chest PA or AP 1V INDICATION: CHEST PAIN. COMPARISON: December 2018. DISCUSSION: Cardiomediastinal silhouette is normal in size and contour. No infiltrate, effusion, pneumothorax, or edema. IMPRESSION: No acute findings or significant change from the prior examination. Sam Villasenor MD 02/08/19 [id number] Thank you for allowing us to participate in the care of your patient.
[2019-02-08 13:31] LABS: ANION GAP 20.2 mmol/L (5-15)
[2019-02-08] MEDS ORDERED: Sodium Chloride 0.9% 1,000 ML IV SCH (13:45)
[2019-02-08 13:52] VITALS: BP 130/70; PULSE 86
--- OUTSIDE RECORDS SUMMARY | 2019-02-11 08:03 | XMSREPORT ---
:1960 Author Organization [facility] Address [address] [place] [address] Care Team Providers Name Role Phone Provider, No Attributed RESOURCE Attributed Provider Unavailable Vanessa Villaseñor MD Primary Care Provider Reason for Referral Comprehensive Primary Care Plus (Routine) Status Reason Specialty Diagnoses / Referred By Referred To Procedures Contact Contact New Request SLEEP MEDICINE Diagnoses ST elevation myocardial infarction involving left anterior descending (LAD) coronary artery (HCC) TAL[place] (obstructive sleep apnea) Martine Blanco, o Sleep PSYCHOLOGY LECTURER Medicine [address] Phone: [place] [address] Phone: Scheduling Instructions This is an electronic referral. Comprehensive Primary Care Plus (Routine) Status Reason Specialty Diagnoses / Referred By Referred To Contact Procedures Contact New Request CARDIOLOGY Diagnoses ST elevation myocardial infarction involving left anterior descending (LAD) coronary artery (HCC) Martine Blanco [facility] [address] [place] [address] [id number] [phone] Phone: Scheduling Instructions This is an electronic referral. Reason for Visit Auth/Cert Status Reason Specialty Diagnoses / Procedures Referred By Contact Referred To Contact Encounter Details Date Type Department Care Team Description 02/08/2019 - Hospital Encounter [facility] Tylor Ortiz, STEMI (ST elevation 02/10/2019 CENTER [facility] myocardial [address] [place] [address] infarction) (HCC) [place] [address] [place] [address] [phone] Allergies Active Allergy Reactions Severity Noted Date Comments Codeine Nausea and Vomiting, Dizziness 09/20/2013 documented as of this encounter (statuses as of 02/10/2019) Medications Medication Sig Dispensed Refills Start End Date Status Date aspirin 81 mg Take 81 mg by 0 Active chewable tablet mouth 1 time per day. omeprazole Take 20 mg by 3 Active (PRILOSEC) 20 mg mouth 2 times a 7 capsule day before meals citalopram (CELEXA) Take 40 mg by 3 Active 40 mg tablet mouth 1 time 7 per day buPROPion Take 100 mg by Active (WELLBUTRIN SR) 100 mouth 1 time 7 mg SR (12 hr) per day tablet lamoTRIgine Take 200 mg by 3 Active (LAMICTAL) 200 mg mouth 1 time 7 tablet per day orphenadrine Take 100 mg by Active (NORFLEX) 100 mg SR mouth 2 times a 7 tablet (12 hr) day as needed NITROSTAT 0.4 MG Dissolve 0.4 mg 1 Active sublingual tablet under the 7 tongue as needed busPIRone (BUSPAR) Take 5 mg by 0 Active 10 mg tablet mouth 3 times a day atorvaSTATin Take 1 tablet 90 tablet 02/15/19 Active (LIPITOR) 40 mg (40 mg) by 0 21 tabletIndications: mouth [address] elevation per day myocardial infarction involving left anterior descending (LAD) coronary artery (HCC) clopidogrel Take 1 tablet 90 tablet 3 Active (PLAVIX) 75 mg (75 mg) by 0 tabletIndications: mouth [address] elevation per day myocardial infarction involving left anterior descending (LAD) coronary artery (HCC) lisinopril Take 1 tablet 90 tablet 4 02/15/19 Active (PRINIVIL, ZESTRIL) (5 mg) by mouth 0 21 5 mg 1 time per day tabletIndications: ST elevation myocardial infarction involving left anterior descending (LAD) coronary artery (HCC), 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) metoprolol Take 1 tablet 90 tablet 3 02/15/19 Active succinate (TOPROL (25 mg) by 0 21 XL) 25 mg SR tablet mouth 1 time (24 hr)Indications: per day ST elevation myocardial infarction involving left anterior descending (LAD) coronary artery (HCC), 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) spironolactone Take 0.5 45 tablet 3 02/14/19 Active (ALDACTONE) 25 mg tablets (12.5 0 21 tabletIndications: mg) by mouth 1 ST elevation time per day myocardial infarction involving left anterior descending (LAD) coronary artery (HCC), 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 12 tablet 0 02/09/20 Discontinued tabletIndications: 30mg, 20mg. 8 19 (administrative assistant data entry Low back pain 10mg. Each error) without sciatica, dose x 2 days. unspecified back Begin Mobic pain laterality, after the unspecified Prednisone chronicity completed. meloxicam (MOBIC) Take 1 tablet 14 tablet 0 02/10/19 Discontinued 15 mg (15 mg) by 9 20 (Stop Taking at tabletIndications: mouth 1 time Discharge) Low back pain per day without sciatica, unspecified back pain laterality, unspecified chronicity documented as of this encounter (statuses as of 02/10/2019) Active Problems Problem Noted Date Acute combined systolic (congestive) and diastolic (congestive) heart 2019 failure STEMI (ST elevation myocardial infarction) 02/08/2019 Other sleep apnea 02/08/2019 Acute myocardial infarction 03/05/2010 Other and unspecified hyperlipidemia 03/05/2010 Postsurgical percutaneous transluminal coronary angioplasty status Major depressive disorder, recurrent episode, moderate Essential hypertension, benign Coronary atherosclerosis of [place] coronary artery documented as of this encounter (statuses as of 02/10/2019) Immunizations Name Administration Dates Next Due Influenza Trivalent w/preserv 12/16/2005 Influenza Vaccine,unspecified 11/26/2015, 12/12/2014, 12/17/2010 TDAP 03/27/2016, 04/21/2014 documented as of this encounter Social History Tobacco Use Types Packs/Day Years Used Date Current Every Day Smoker Cigarettes 1 40 Smokeless Tobacco: Never Used Tobacco Cessation: Ready to Quit: Yes; Counseling Given: Yes Alcohol Use Drinks/Week oz/Week Comments Yes once a month Sexually Active Control Partners Comments Not Currently Sex Assigned at Date Recorded Not on file Job Start Date Occupation Industry Not on file Not on file Not on file Travel History Travel Start Travel End No recent travel history available. documented as of this encounter Last Filed Vital Signs Vital Sign Reading Time Taken Comments Blood Pressure 120/70 02/10/2019 12:00 PM PRODUCER Pulse 89 02/10/2019 12:00 PM PRODUCER Temperature 36.2 C (97.2 F) 02/10/2019 12:00 PM PRODUCER Respiratory Rate 14 02/10/2019 12:00 PM PRODUCER Oxygen Saturation 95% 02/10/2019 12:00 PM PRODUCER Inhaled Oxygen Concentration - - Weight 99.2 kg (218 lb 11.1 oz) 02/08/2019 4:53 PM PRODUCER Height 182.9 cm (6') 02/08/2019 4:53 PM PRODUCER Body Mass Index 29.66 02/08/2019 4:53 PM PRODUCER documented in this encounter Functional Status Functional Status Response Date of Assessment Is the person deaf or does he/she have serious difficulty No 02/08/2019 hearing? Is this person blind or does he/she have difficulty No 02/08/2019 seeing even when wearing glasses? Do you have difficulty with walking, balance, climbing No 02/08/2019 stairs, or had a fall in the last 3 months? Does the patient have difficulty dressing or bathing? No 02/08/2019 Because of a physical, mental, or emotional condition; No 02/08/2019 does this person have difficulty doing errands alone such as visiting a doctor's office or shopping? Cognitive Status Response Date of Assessment Because of a physical, mental, or emotional condition; No 02/08/2019 does this person have serious difficulty concentrating, remembering, or making decisions? documented as of this encounter Discharge Summaries Not on filedocumented in this encounter Discharge Instructions Jenny Cameron RN - 02/10/2019For any of the following symptoms of heart failure: Rapid weight gain of 2 or more pounds overnight or 5 pounds in a week Extreme fatigue or weakness Swelling of the legs, ankles, abdomen, and/or neck Rapid or irregular heartbeat Shortness of breath Please call the Heart Failure Program nurse navigator line at: [phone] during clinic hours documented in this encounter Medications at Time of Discharge Medication Sig Dispensed Refills Start Date End Date atorvaSTATin (LIPITOR) 40 Take 1 tablet (40 90 tablet 4 02/11/20192020 mg tabletIndications: ST mg) by mouth 1 time elevation myocardial per day infarction involving left anterior descending (LAD) coronary artery (HCC) clopidogrel (PLAVIX) 75 mg Take 1 tablet (75 90 tablet 3 02/11/2019 tabletIndications: ST mg) by mouth 1 time elevation myocardial per day infarction involving left anterior descending (LAD) coronary artery (HCC) lisinopril (PRINIVIL, Take 1 tablet (5 90 tablet 4 02/11/2019 02/16/2020 ZESTRIL) 5 mg mg) by mouth 1 time tabletIndications: ST per day elevation myocardial infarction involving left anterior descending (LAD) coronary artery (HCC), 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) metoprolol succinate Take 1 tablet (25 90 tablet 3 02/11/2019 02/16/2020 (TOPROL XL) 25 mg SR mg) by mouth 1 time tablet (24 hr)Indications: per day ST elevation myocardial infarction involving left anterior descending (LAD) coronary artery (HCC), 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) busPIRone (BUSPAR) 10 mg Take 5 mg by mouth 0 tablet 3 times a day omeprazole (PRILOSEC) 20 Take 20 mg by mouth 3 10/06/2016 mg capsule 2 times a day before meals citalopram (CELEXA) 40 mg Take 40 mg by mouth 3 10/11/2016 tablet 1 time per day buPROPion (WELLBUTRIN SR) Take 100 mg by 3 10/23/2016 100 mg SR (12 hr) tablet mouth 1 time per day lamoTRIgine (LAMICTAL) 200 Take 200 mg by 3 10/09/2016 mg tablet mouth 1 time per day orphenadrine (NORFLEX) 100 Take 100 mg by 3 10/09/2016 mg SR tablet (12 hr) mouth 2 times a day as needed NITROSTAT 0.4 MG Dissolve 0.4 mg 1 07/29/2016 sublingual tablet under the tongue as needed aspirin 81 mg chewable Take 81 mg by mouth 0 tablet 1 time per day. 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 STEMI 2. Tobacco Use 3. Sleep Apnea 4. Ischemic Cardiomyopathy of 30%, 5. Depression: Plan: Continue ASA plavix for 1 year. Continue metoprolol and statin. Add lisinopril and aldactone to medication. Follow potassium Needs heart failure follow up at discharge Doing well post Cath. Working with cardiac rehab. Possible d/c tomorrow Resumed home bupropion and buspar, celexa. Will need sleep referral on d/c DVT prophylaxis: lovenox Code:full Diet: regular Disposition: inpatient possible d/c tomorrow Leroy Conteh MD Resident Pager [phone] Subjective: Patient is doing well post- STEMI and Cath No hematoma Up walking without exertional symptoms minor left shoulder pain. Went to bathroom No shortness of breath or symptoms of HF. Former marine. Ros: 4 system ROS: Cardiac, Resp, GI, and General are negative unless noted above in HPI. Objective: Current Vital Signs Temp: 97.4 F (36.3 C) BP: 140/78 Pulse: 86 O2 Device: Room Air Resp: 22 Pain Ratin (out of 10) Weight: 99.2 kg (218 lb 11.1 oz) SpO2: 99 % Exam: Gen: NAD, comfortable in bed, alert talking Resp: normal vesicular breath sounds without accessory muscle use Cardiac: S1/S1 no murmur Abd: soft non-tender Extremities: no edema, pulses 2+ bilaterally, wrist site is bandaged. No large hematoma. Neuro: non focal neurologic, AOx4 UCER Associated attestation - Malinda Christy MD - 02/09/2019 7:22 PM PRODUCER I discussed the patient with the resident and personally interviewed and examined the patient. I verified in the medical record all resident documentation/findings, including history, physical exam, and medical decision making, and I agree with the resident's documentation. Note the following additions/corrections: on aldactone and Lisinopril Please monitor K carefully Initiated initial discussions on AICD Needs optimization and repeat LVEF in 40 days. Don Remy, PHARM D - 02/08/2019 10:20 PM CST 02/08/2019 22:20 Patient was seen by pharmacy for medication reconciliation. Home medications have been reconciled and updated on the home medications list to match the patient's home usage. Medications Deleted: Predinsone-Therapy completed in July Medications Added: Buspirone Other information: None Prior to Admission Medications Prescriptions Last Dose Informant Patient Reported? Taking? NITROSTAT 0.4 MG sublingual tablet Unknown at Unknown time Yes Yes Sig: Dissolve 0.4 mg under the tongue as needed aspirin 81 mg chewable tablet 02/08/2019 at Unknown time Yes Yes Sig: Take 81 mg by mouth 1 time per day. buPROPion (WELLBUTRIN SR) 100 mg SR (12 hr) tablet 02/08/2019 at Unknown time Yes Yes Sig: Take 100 mg by mouth 1 time per day busPIRone (BUSPAR) 10 mg tablet 02/08/2019 at noon Yes Yes Sig: Take 5 mg by mouth 3 times a day cetirizine-pseudoephedrine (ZYRTEC-D) 5-120 mg SR (12 hr) tablet Not Taking at Unknown time No No Sig: Take 1 tablet by mouth 2 times a day Patient not taking: Reported on 02/08/2019 citalopram (CELEXA) 40 mg tablet 02/08/2019 at Unknown time Yes Yes Sig: Take 40 mg by mouth 1 time per day lamoTRIgine (LAMICTAL) 200 mg tablet 02/08/2019 at Unknown time Yes Yes Sig: Take 200 mg by mouth 1 time per day meloxicam (MOBIC) 15 mg tablet Not Taking at Unknown time No No Sig: Take 1 tablet (15 mg) by mouth 1 time per day Patient not taking: Reported on 02/08/2019 metoprolol tartrate (LOPRESSOR) 25 mg tablet 02/08/2019 at am Yes Yes Sig: Take 25 mg by mouth 2 times a day omeprazole (PRILOSEC) 20 mg capsule 02/08/2019 at am Yes Yes Sig: Take 20 mg by mouth 2 times a day before meals orphenadrine (NORFLEX) 100 mg SR tablet (12 hr) Unknown at Unknown time Yes Yes Sig: Take 100 mg by mouth 2 times a day as needed Facility-Administered Medications: None Patient denies use of other inhalers, creams/ointments, eye/ear drops, patches or injectables, OTC, vitamins and /or other herbal products Don Remy, PHARM D documented in this encounter Plan of Treatment Date Type Specialty Care Team Description 02/18/2019 Office Visit SLEEP MEDICINE Martine Blanco, PSYCHOLOGY LECTURER [address] [place] [address] [phone] Margarita Larson PA-C [address] [place] [address] [phone] 03/09/2019 Office Visit CARDIOLOGY Martine Blanco, PSYCHOLOGY LECTURER [address] [place] [address] [phone] Name Type Priority Associated Diagnoses Order Schedule BASIC METABOLIC PANEL WITH Lab Routine Early AM draw for labs GFR for 3 Days starting 02/09/2019 until 02/11/2019, 2 completed COMPLETE BLOOD COUNT WITH Lab Routine Early AM draw for labs DIFFERENTIAL for 3 Days starting 02/09/2019 until 02/11/2019, 2 completed Name Type Priority Associated Diagnoses Order Schedule CLINIC REFERRAL HEART Referral Routine ST elevation myocardial Ordered: 03/2019 FAILURE PROGRAM ONE infarction involving CHART left anterior descending (LAD) coronary artery (HCC) CLINIC REFERRAL SLEEP Referral Routine ST elevation myocardial Ordered: 03/2019 MEDICINE ONE CHART infarction involving left anterior descending (LAD) coronary artery (HCC) [place] (obstructive sleep apnea) documented as of this encounter Procedures Procedure Name Priority Date/Time Associated Comments Diagnosis LAB ONLY-COMPLETE Routine 02/10/2019 6:39 Results for this BLOOD COUNT WITH AM PRODUCER procedure are in DIFFERENTIAL the results section. BASIC METABOLIC PANEL Routine 02/10/2019 6:39 Results for this AM PRODUCER procedure are in the results section. LAB ONLY-COMPLETE Routine 02/10/2019 6:39 Results for this BLOOD COUNT WITH AM PRODUCER procedure are in DIFFERENTIAL the results section. GLUCOSE BY METER, POCT Routine 02/09/2019 10:40 Results for this AM PRODUCER procedure are in the results section. ECHO ADULT COMPLETE Routine 02/09/2019 9:14 Results for this AM PRODUCER procedure are in the results section. LAB ONLY-COMPLETE Routine 02/09/2019 8:25 Results for this BLOOD COUNT WITH AM PRODUCER procedure are in DIFFERENTIAL the results section. TROPONIN I Routine 02/09/2019 8:25 Results for this AM PRODUCER procedure are in the results section. BASIC METABOLIC PANEL Routine 02/09/2019 8:25 Results for this AM PRODUCER procedure are in the results section. LAB ONLY-COMPLETE Routine 02/09/2019 8:25 Results for this BLOOD COUNT WITH AM PRODUCER procedure are in DIFFERENTIAL the results section. GLUCOSE BY METER, POCT Routine 02/09/2019 7:40 Results for this AM PRODUCER procedure are in the results section. GLUCOSE BY METER, POCT Routine 02/08/2019 9:51 Results for this PM PRODUCER procedure are in the results section. EKG Routine 02/08/2019 7:52 Results for this PM PRODUCER procedure are in the results section. EKG Routine 02/08/2019 6:41 Results for this PM PRODUCER procedure are in the results section. GLUCOSE BY METER, POCT Routine 02/08/2019 5:20 Results for this PM PRODUCER procedure are in the results section. EKG STAT 02/08/2019 4:45 Results for this PM PRODUCER procedure are in the results section. PROTIME/INR Routine 02/08/2019 4:40 Results for this PM PRODUCER procedure are in the results section. BRAIN NATRIURETIC Routine 02/08/2019 4:40 Results for this PEPTIDE PM PRODUCER procedure are in the results section. LAB ONLY-COMPLETE Routine 02/08/2019 4:39 Results for this BLOOD COUNT WITH PM PRODUCER procedure are in DIFFERENTIAL the results section. LIPID PANEL Routine 02/08/2019 4:39 Results for this PM PRODUCER procedure are in the results section. GLYCATED HEMOGLOBIN Routine 02/08/2019 4:39 Results for this PM PRODUCER procedure are in the results section. TROPONIN I Routine 02/08/2019 4:39 Results for this PM PRODUCER procedure are in the results section. COMPREHENSIVE Routine 02/08/2019 4:39 Results for this METABOLIC PANEL PM PRODUCER procedure are in the results section. LAB ONLY-COMPLETE Routine 02/08/2019 4:39 Results for this BLOOD COUNT WITH PM PRODUCER procedure are in DIFFERENTIAL the results section. ACTIVATED CLOTTING Routine 02/08/2019 3:11 Results for this TIME POCT PM PRODUCER procedure are in the results section. ACTIVATED CLOTTING Routine 02/08/2019 2:58 Results for this TIME POCT PM PRODUCER procedure are in the results section. documented in this encounter Results LAB ONLY-COMPLETE BLOOD COUNT WITH DIFFERENTIAL (02/10/2019 6:39 AM PRODUCER) WBC 8.4 4.0 - 11.0 K/uL [address] RBC 4.44 4.40 - 5.[address] M/uL Hemoglobin 15.3 13.5 - 17.[address] g/dL Hematocrit 45.4 40.0 - 50.0 % [address] MCV 102.3 (H) 80.0 - 98.[address] MCH 34.5 (H) 25.5 - 34.[address] MCHC 33.7 31.5 - 36.[address] g/dL RDW-CV 12.7 11.5 - 15.5 % [address] RDW-SD 48.2 35.5 - 50.[address] Platelet Count 159 140 - 400 K/uL [address] MPV 10.8 8.5 - 12.[address] Seg Neut Absolute 5.2 1.8 - 8.0 K/uL [address] Lymphocytes Absolute 2.0 0.8 - 4.1 K/uL [address] Monocytes Absolute 0.9 0.0 - 1.0 K/uL [address] Eosinophils Absolute 0.3 0.0 - 0.7 K/uL [address] Basophil Absolute 0.1 0.0 - 0.2 K/uL [address] Immature Granulocyte 0.04 0.00 - 0.[address] Absolute K/uL Neutrophils Abs. 5,200 /uL [address] (Segs and Bands) Neutrophils Percent 61.9 % [address] Lymphocytes Percent 23.5 % [address] Monocytes Percent 10.3 % [address] Immature Granulocyte 0.5 % [address] Percent Eosinophils Percent 3.2 % [address] Basophil Percent 0.6 % [address] Nucleated RBC 0 /[address] Specimen Blood Performing Organization Address City/State/Zipcode Phone Number [address] [place] [id number] BASIC METABOLIC PANEL WITH GFR (02/10/2019 6:39 AM PRODUCER) Glucose 97 70 - 100 mg/dL [address] BUN 10 6 - 22 mg/dL [address] Creatinine 1.02 0.80 - 1.[address] mg/dL BUN/Creatinine Ratio 9.8 (L) 10.0 - 25.[address] Sodium 140 135 - 145 meq/L [address] Potassium 3.9 3.5 - 5.3 meq/L [address] Chloride 110 99 - 110 meq/L [place] [id number] [facility] CO2 19 (L) 20 - 29 meq/L [address] Anion Gap with K 15 6 - 20 meq/L [address] Calcium 8.9 8.5 - 10.5 mg/dL [address] Age 58 Years [place] [id number] [facility] eGFR Non- 75 >=[address] Eritrean mL/min/1.73m2 eGFR >90 >=[address] mL/min/1.73m2 Specimen Blood Performing Organization Address City/[facility]/Zipcode Phone Number [address] [facility] [address] GLUCOSE BY METER, POCT (02/09/2019 10:40 AM PRODUCER) Glucose POC 94 70 - 100 mg/dL [facility] POINT OF CARE TESTING Specimen Blood Performing Organization Address City/[facility] Hospitalcode Phone Number [facility] POINT OF [address] [place] [address] CARE TESTING ECHO ADULT COMPLETE (02/09/2019 9:14 AM PRODUCER) Specimen Narrative Performed At [facility] Patient: YESSY BLANCA MR#: [id number] Exam Date: 02/09/[address] [facility] [address] [place] [address], [id number] : 131/65 mmHg HR:72 bpm : 1960Exam Location: Bedside Height:72.00 "( 182.9 cm) Age: 58 year(s)Patient Room: 53 01Weight:250 lbs.( 113.40 kg) Gender:MalePatient Status: Inpatient BSA: 2.34 m2 Immigration Case Manager: MARQUISE CEJA Reading Physician: MALINDA CHRISTY MD Ordering Physician:KATELYN ROCA MD Procedure Indication(s):STEMI Examination:TTE Complete 2D(m-mode) , Complete Spectral Doppler, Color Doppler, with Contrast,Optison Conclusions Overall Conclusions This is an abnormal study. Comparison Study Comparison Study: No previous echo was available for comparison Findings Left Ventricle: Normal left ventricular size. Normal left ventricular wall thickness. Markedly reduced left ventricular systolic function. The ejection fraction is visually estimated to be 30 %. The mid anteroseptal, mid inferoseptal, mid inferior, apical anterior, apical septal, apical inferior, apical lateral and apex wall segments are akinetic. Grade 2 left ventricular diastolic dysfunction. Left Atrium: Dilated left atrium by visual assessment. Aortic Valve: The aortic valve is tricuspid. Moderate aortic regurgitation. Eccentrically directed regurgitant jet. No aortic stenosis. Abnormal thickening of the non coronary cusp of the aortic valve. Unable to rule out vegetation due to eccentric regurgitation. Aorta: The sinus of valsalva is normal in size measuring 34.0 mm. The ascending aorta is normal in size measuring 30.0 mm. Mitral Valve: Normal mitral valve structure. There is mild mitral annular calcification. Mild mitral regurgitation. No mitral stenosis. IAS: No gross evidence of shunt flow seen; however the possibility of a PFO cannot be completely ruled out. Right Ventricle: Normal right ventricular size. Normal right ventricular systolic function. Normal right ventricular wall thickness. Pulmonary Artery: The tricuspid jet envelope definition is inadequate for estimation of RV systolic pressure. Right Atrium: Normal right atrial size. Tricuspid Valve: Normal tricuspid valve structure. Trivial tricuspid regurgitation. Pulmonic Valve: Normal pulmonary valve structure. No significant pulmonary regurgitation. No pulmonary stenosis. IVC: Normal IVC size with minimal respirophasic changes. Pericardium: No significant pericardial effusion. No pleural effusion. Measurements Left Ventricle Aortic Valve LabelValueNormal Value LabelValue Normal Value LVDd, 2D 49.7 mm LVOT Vmax 99 cm/s LVDs, 2D 29.4 mm AV Vmax 114 cm/s IVSd, 2D 10.8 mm LVOTd 20 mm LVPWd, 2D10.5 mm LVOT VTI18.9 cm FS, 2D 40.85 % LVOT PGmax4 mmHg LVEDV, 2D117 ml AV Vmean84 cm/s LVESV, 2D33 ml AV VTI20.3 cm Cardiac Output 4.25 L/min AV PGmax5 mmHg Cardiac Index1.82 AV PGmean 3 mmHg L/min/m-sqAVA (Vmax) 2.7 cm-sq Left Atrium AR Vmax 445 cm/s LabelValueNormal Value AR Slope4.9 m/s-sq LADs Long. 51 mm AR ERH336 ms LA Volume Index21.1 ml/m-sq AV Vmax, Rbexhsb041 cm/s Aorta Mitral Valve LabelValueNormal Value LabelValue Normal Value Ao Asc 30 mm MV E Vmax 101 cm/s Ao Sinus, 2D 34 mm MV A Vmax 67 cm/s Great Vessels MV E/A1.51 LabelValueNormal Value MV E/E' lateral 12.7 PVein S47 cm/s MV Dec Time 134 ms PVein D37 cm/s MV PHT0.04 s S/D Ratio1.2 MVA PHT 5.6 cm-sq Heart Rate MV E' lateral 8 cm/s LabelValueNormal Value Heart Rate 72 bpm at 12: 57 PM Wall Motion Scores -1 - Not Scored, 0 - Unknown, 1 - Normal or hyperkinesia,2 - Hypokinesia, 3 - Akinesia, 4 - Dyskinesia, 5 - Aneurysm Procedure Note Interface[employer] Results No Pull Forward - 02/09/2019 1:00 PM PRODUCER Patient: YESSY BLANCA MR#: [id number] Exam Date: 02/09/[address] [facility] [address] [place] [address] BP: 131/65 mmHg HR: 72 bpm : 1960 Exam Location: Bedside Height: 72.00 "(182.9 cm) Age: 58 year(s) Patient Room: [facility] Weight: 250 lbs.(113.40 kg) Gender: Male Patient Status: Inpatient BSA: 2.34 m2 Immigration Case Manager: MARQUISE CEJA Reading Physician: MALINDA CHRISTY MD Ordering Physician: KATELYN ROCA MD Procedure Indication(s): STEMI Examination: TTE Complete 2D(m-mode), Complete Spectral Doppler, Color Doppler, with Contrast,Optison Conclusions Overall Conclusions This is an abnormal study. Comparison Study Comparison Study: No previous echo was available for comparison Findings Left Ventricle: Normal left ventricular size. Normal left ventricular wall thickness. Markedly reduced left ventricular systolic function. The ejection fraction is visually estimated to be 30 %. The mid anteroseptal, mid inferoseptal, mid inferior, apical anterior, apical septal, apical inferior, apical lateral and apex wall segments are akinetic. Grade 2 left ventricular diastolic dysfunction. Left Atrium: Dilated left atrium by visual assessment. Aortic Valve: The aortic valve is tricuspid. Moderate aortic regurgitation. Eccentrically directed regurgitant jet. No aortic stenosis. Abnormal thickening of the non coronary cusp of the aortic valve. Unable to rule out vegetation due to eccentric regurgitation. Aorta: The sinus of valsalva is normal in size measuring 34.0 mm. The ascending aorta is normal in size measuring 30.0 mm. Mitral Valve: Normal mitral valve structure. There is mild mitral annular calcification. Mild mitral regurgitation. No mitral stenosis. IAS: No gross evidence of shunt flow seen; however the possibility of a PFO cannot be completely ruled out. Right Ventricle: Normal right ventricular size. Normal right ventricular systolic function. Normal right ventricular wall thickness. Pulmonary Artery: The tricuspid jet envelope definition is inadequate for estimation of RV systolic pressure. Right Atrium: Normal right atrial size. Tricuspid Valve: Normal tricuspid valve structure. Trivial tricuspid regurgitation. Pulmonic Valve: Normal pulmonary valve structure. No significant pulmonary regurgitation. No pulmonary stenosis. IVC: Normal IVC size with minimal respirophasic changes. Pericardium: No significant pericardial effusion. No pleural effusion. Measurements Left Ventricle Aortic Valve Label Value Normal Value Label Value Normal Value LVDd, 2D 49.7 mm LVOT Vmax 99 cm/s LVDs, 2D 29.4 mm AV Vmax 114 cm/s IVSd, 2D 10.8 mm LVOTd 20 mm LVPWd, 2D 10.5 mm LVOT VTI 18.9 cm FS, 2D 40.85 % LVOT PGmax 4 mmHg LVEDV, 2D 117 ml AV Vmean 84 cm/s LVESV, 2D 33 ml AV VTI 20.3 cm Cardiac Output 4.25 L/min AV PGmax 5 mmHg Cardiac Index 1.82 AV PGmean 3 mmHg L/min/m-sq NIRMALA (Vmax) 2.7 cm-sq Left Atrium AR Vmax 445 cm/s Label Value Normal Value AR [place]kin 4.9 m/s-sq LADs Long. 51 mm AR PHT 266 ms LA Volume Index 21.1 ml/m-sq AV Vmax, Caliper 114 cm/s Aorta Mitral Valve Label Value Normal Value Label Value Normal Value Ao Asc 30 mm MV E Vmax 101 cm/s Ao Sinus, 2D 34 mm MV A Vmax 67 cm/s Great Vessels MV E/A 1.51 Label Value Normal Value MV E/E' lateral 12.7 PVein S 47 cm/s MV Dec Time 134 ms PVein D 37 cm/s MV PHT 0.04 s S/D Ratio 1.2 MVA PHT 5.6 cm-sq Heart Rate MV E' lateral 8 cm/s Label Value Normal Value Heart Rate 72 bpm at 12: 57 PM Wall Motion Scores -1 - Not Scored, 0 - Unknown, 1 - Normal or hyperkinesia, 2 - Hypokinesia, 3 - Akinesia, 4 - Dyskinesia, 5 - Aneurysm Performing Organization Address City/State/Zipcode Phone Number [facility], [place] LAB ONLY-COMPLETE BLOOD COUNT WITH DIFFERENTIAL (02/09/2019 8:25 AM PRODUCER) WBC 9.5 4.0 - 11.0 K/uL [address] RBC 4.16 (L) 4.40 - 5.[address] M/uL Hemoglobin 14.2 13.5 - 17.[address] g/dL Hematocrit 42.1 40.0 - 50.0 % [address] MCV 101.2 (H) 80.0 - 98.[address] MCH 34.1 (H) 25.5 - 34.[address] MCHC 33.7 31.5 - 36.[address] g/dL RDW-CV 12.6 11.5 - 15.5 % [address] RDW-SD 47.6 35.5 - 50.[address] Platelet Count 144 140 - 400 K/uL [address] MPV 9.9 8.5 - 12.[address] Seg Neut Absolute 6.9 1.8 - 8.0 K/uL [address] Lymphocytes Absolute 1.4 0.8 - 4.1 K/uL [address] Monocytes Absolute 0.9 0.0 - 1.0 K/uL [address] Eosinophils Absolute 0.1 0.0 - 0.7 K/uL [address] Basophil Absolute 0.1 0.0 - 0.2 K/uL [address] Immature Granulocyte 0.04 0.00 - 0.[address] Absolute K/uL Neutrophils Abs. 6,900 /uL [address] (Segs and Bands) Neutrophils Percent 73.1 % [facility] Lymphocytes Percent 15.2 % [address] Monocytes Percent 9.3 % [address] Immature Granulocyte 0.4 % [place] [address] [facility] Percent Eosinophils Percent 1.5 % [place] [address] [facility] Basophil Percent 0.5 % [address] Nucleated RBC 0 /[address] Specimen Blood Performing Organization Address [facility] Phone Number [address] [place] [phone] TROPONIN I (02/09/2019 8:25 AM PRODUCER) [facility] [address] Troponin I 13.625 (H) 0.000 - 0.028 ng/mL [address] Specimen Blood Performing Organization Address [facility] Phone Number [place] [address] [facility] [address] [place] [phone] BASIC METABOLIC PANEL WITH GFR (02/09/2019 8:25 AM PRODUCER) [facility] [address] Glucose 101 (H) 70 - 100 mg/dL [address] BUN 8 6 - 22 mg/dL [address] Creatinine 1.13 0.80 - 1.[address] mg/dL BUN/Creatinine Ratio 7.1 (L) 10.0 - 25.[address] Sodium 138 135 - 145 meq/L [address] Potassium 3.9 3.5 - 5.3 meq/L [address] Chloride 108 99 - 110 meq/L [address] CO2 21 20 - 29 meq/L [address] Anion Gap with K 13 6 - 20 meq/L [address] Calcium 8.7 8.5 - 10.5 mg/dL [address] Age [address] eGFR Non- 66 >=[address] Eritrean mL/min/1.73m2 eGFR 81 >=[address] mL/min/1.73m2 Specimen Blood Performing Organization Address [facility] Phone Number [address] [place] [phone] GLUCOSE BY METER, POCT (02/09/2019 7:40 AM PRODUCER) [facility] [address] Glucose POC 95 70 - 100 mg/dL [facility] POINT OF CARE TESTING Specimen Blood Performing Organization Address City/[facility]/Zipcode Phone Number [facility] POINT OF [address] [place] [address] CARE TESTING GLUCOSE BY METER, POCT (02/08/2019 9:51 PM PRODUCER) Glucose POC 103 (H) 70 - 100 mg/dL [facility] POINT OF CARE TESTING Specimen Blood Performing Organization Address City/[facility] Phone Number [facility] POINT OF [address] [place] [phone] CARE TESTING EKG (02/08/2019 7:52 PM PRODUCER)Only the most recent of3 resultswithin the time period is included. EKG [employer] Normal sinus rhythm Normal ECG Ventricular Rate: 89 BPM Atrial Rate: 89 BPM P-R Interval: 138 ms QRS Duration: 76 ms Q-T Interval: 358 ms QTc Calculation(Bazett): 435 ms Calculated P [place]: 72 degrees Calculated R [place]: 32 degrees Calculated T [place]: 67 degrees Specimen Narrative Performed At Performing Organization Address City/[facility] Phone Number [employer] GLUCOSE BY METER, POCT (02/08/2019 5:20 PM PRODUCER) Glucose POC 99 70 - 100 mg/dL [facility] POINT OF CARE TESTING Specimen Blood Performing Organization Address [facility] Phone Number [facility] POINT OF [address] [place] [phone] CARE TESTING BRAIN NATRIURETIC PEPTIDE (02/08/2019 4:40 PM PRODUCER) BNP 35 0 - 100 pg/mL [place] [address] [facility] Specimen Blood Performing Organization Address [facility]/Zipcode Phone Number [address] [place] [phone] PROTIME/INR (02/08/2019 4:40 PM PRODUCER) Protime 14.9 (H) 12.0 - 14.[address] INR 1.2 (L) 2.0 - 3.5 [place] [address] [facility] Specimen Blood Narrative Performed At Normal INR reference range (patients not on oral [address] anticoagulants)0.9-1.1. INR Standard Intensity=(2.0 - 3.0) INR Higher Intensity=(2.5 - 3.5) Performing Organization Address City/State/Zipcode Phone Number [address] [facility] [address] LAB ONLY-COMPLETE BLOOD COUNT WITH DIFFERENTIAL (02/08/2019 4:39 PM PRODUCER) WBC 15.0 (H) 4.0 - 11.0 K/uL [address] RBC 4.51 4.40 - 5.[address] M/uL Hemoglobin 15.5 13.5 - 17.[address] g/dL Hematocrit 46.5 40.0 - 50.0 % [address] MCV 103.1 (H) 80.0 - 98.[address] MCH 34.4 (H) 25.5 - 34.[address] MCHC 33.3 31.5 - 36.[address] g/dL RDW-CV 12.5 11.5 - 15.5 % [address] RDW-SD 47.8 35.5 - 50.[address] Platelet Count 161 140 - 400 K/uL [address] MPV 10.1 8.5 - 12.[address] Seg Neut Absolute 13.1 (H) 1.8 - 8.0 K/uL [address] Lymphocytes Absolute 0.9 0.8 - 4.1 K/uL [address] Monocytes Absolute 0.8 0.0 - 1.0 K/uL [address] Eosinophils Absolute 0.0 0.0 - 0.7 K/uL [address] Basophil Absolute 0.1 0.0 - 0.2 K/uL [address] Immature Granulocyte 0.09 (H) 0.00 - 0.[address] Absolute K/uL Neutrophils Abs. 13,100 /uL [address] (Segs and Bands) Neutrophils Percent 87.7 % [address] Lymphocytes Percent 5.7 % [address] Monocytes Percent 5.5 % [address] Immature Granulocyte 0.6 % [address] Percent Eosinophils Percent 0.1 % [address] Basophil Percent 0.4 % [address] Nucleated RBC 0 /[address] Specimen Blood Performing Organization Address [facility] Phone Number [address] [place] [phone] TROPONIN I (02/08/2019 4:39 PM PRODUCER) Troponin I 26.604 (H) 0.000 - 0.028 ng/mL [address] Specimen Blood Performing Organization Address [facility] Phone Number [address] [place] [phone] GLYCATED HEMOGLOBIN (02/08/2019 4:39 PM PRODUCER) Hgb A1C 5.4 <5.7 % [facility] Estimated Average 108 mg/dL [facility] Glucose Specimen Blood Narrative Performed At ADA Interpretive Guidelines [facility] When Using HbA1c for Diagnosis Prediabetes 5.7 - 6.4% Diabetes >=6.5% When Using HbA1c for Monitoring a Person Known to Have Diabetes, < 7% is a reasonable goal for many non adults, < 7.5% should be considered in children and adolescents (<19 years) with type 1 diabetes. ADA Standards of Medical Care in Diabetes - 2019 Performing Organization Address [facility] Phone Number [facility] [address] [place] [phone] LIPID PANEL (02/08/2019 4:39 PM PRODUCER) Cholesterol 273 (H) 100 - 200 mg/dL [facility] Triglyceride 75 50 - 150 mg/dL [facility] HDL 53 40 - 80 mg/dL [facility] LDL 205 (H) 0 - 129 mg/dL [facility] Specimen Blood Performing Organization Address [facility] Phone Number [facility] [address] [place] [address] COMPREHENSIVE METABOLIC PANEL (02/08/2019 4:39 PM PRODUCER) Glucose 101 (H) 70 - 100 mg/dL [address] BUN 8 6 - 22 mg/dL [address] Creatinine 1.46 (H) 0.80 - 1.[address] mg/dL BUN/Creatinine Ratio 5.5 (L) 10.0 - 25.[address] Sodium 138 135 - 145 meq/L [address] Potassium 3.8 3.5 - 5.3 meq/L [address] Chloride 105 99 - 110 meq/L [address] CO2 21 20 - 29 meq/L [address] Anion Gap with K 16 6 - 20 meq/L [address] Calcium 8.9 8.5 - 10.[address] mg/dL Protein Total 6.6 6.0 - 8.2 g/dL [address] Albumin 4.0 3.5 - 5.0 g/dL [address] Alkaline Phosphatase 70 30 - 150 U/L [address] AST - SGOT 35 0 - 35 U/L [address] ALT - SGPT 24 0 - 55 U/L [address] Bilirubin Total 0.5 0.2 - 1.2 mg/dL [address] Age [address] eGFR Non- 49 (L) >=[address] Eritrean mL/min/1.73m2 eGFR 60 >=[address] mL/min/1.73m2 Specimen Blood Performing Organization Address [facility] Phone Number [place] [address] [facility] [address] [place] [phone] ACTIVATED CLOTTING TIME POCT (02/08/2019 3:11 PM PRODUCER) Activated Clotting 340 (H) 100 - 150 Secs [facility] POINT OF CARE TESTING Specimen Blood Narrative Performed At DEVICE: [email or web address] [facility] POINT OF CARE TESTING Performing Organization Address City/[facility] Phone Number [facility] POINT OF [address] [place] [address] CARE TESTING ACTIVATED CLOTTING TIME POCT (02/08/2019 2:58 PM PRODUCER) Activated Clotting 208 (H) 100 - 150 Secs [facility] POINT OF CARE TESTING Specimen Blood Narrative Performed At DEVICE: [email or web address] [facility] POINT OF CARE TESTING Performing Organization Address City/State/Zipcode Phone Number 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) TALON (obstructive sleep apnea) Obstructive sleep apnea (adult) (pediatric) STEMI (ST elevation myocardial infarction) (HCC) Acute myocardial infarction, unspecified site, episode of care unspecified Major depressive disorder, recurrent episode, moderate (HCC) Major depressive disorder, recurrent episode, moderate Essential hypertension, benign Coronary atherosclerosis of [place] coronary artery Other sleep apnea documented in this encounter Discharge Diagnoses Not on filedocumented in this encounter Administered Medications Medication Order MAR Action Action Date Dose Rate Site acetaminophen (TYLENOL) tablet Given 02/10/2019 3:28 AM PRODUCER 650 mg 650 mg 650 mg, Oral, Every four hours prn, Starting Thu02/08/19 at 1601, Until Discontinued, mild pain, Post-Procedure (Cath), Pain Scale 1 - 3, Given 02/09/2019 6:01 PM PRODUCER 650 mg ALPRAZolam (XANAX) tablet 0.25 mg 0.25 mg, Oral, Every eight hours prn, Starting Thu02/08/19 at 1627, Until Discontinued, anxiety aspirin chewable tablet 81 mg Given 02/10/2019 8:41 AM PRODUCER 81 mg 81 mg, Oral, Daily, First dose on Thu02/09/19 at 0900, Until Discontinued, Post-Procedure (Cath) Given 02/09/2019 8:04 AM PRODUCER 81 mg atorvaSTATin (LIPITOR) tablet 40 mg Given 02/10/2019 8:40 AM PRODUCER 40 mg 40 mg, Oral, Daily, First dose on Thu02/09/19 at 0900, Until Discontinued Given 02/09/2019 8:04 AM PRODUCER 40 mg bisacodyl (DULCOLAX) suppository 10 mg 10 mg, Rectal, One time a day prn, Starting Thu02/08/19 at 1627, Until Discontinued, constipation, Use second for constipation. If patient cannot take oral medications, use first for constipation., buPROPion (WELLBUTRIN SR) SR tablet (12 hr) Given 02/10/2019 8:40 AM PRODUCER 100 mg 100 mg 100 mg, Oral, DAILY, First dose on Thu02/10/19 at 0900, Until Discontinued, Tablet should not be crushed or chewed., busPIRone (BUSPAR) tablet 5 mg Given 02/10/2019 3:47 PM PRODUCER 5 mg 5 mg, Oral, Three times a day, First dose on Thu02/09/19 at 1500, Until Discontinued Given 02/10/2019 8:44 AM PRODUCER 5 mg Given 02/09/2019 8:06 PM PRODUCER 5 mg citalopram (celeXA) tablet 40 mg Given 02/10/2019 8:44 AM PRODUCER 40 mg 40 mg, Oral, DAILY, First dose on Thu02/10/19 at 0900, Until Discontinued clopidogrel (PLAVIX) tablet 75 mg Given 02/10/2019 8:40 AM PRODUCER 75 mg 75 mg, Oral, Daily, 365 doses, First dose on Thu02/09/19 at 0900, Last dose on Thu02/08/20 at 0900, Post-Procedure (Cath) Given 02/09/2019 8:04 AM PRODUCER 75 mg diphenhydrAMINE (BENADRYL) capsule 25 mg 25 mg, Oral, Bedtime prn, Starting Thu02/08/19 at 1627, Until Discontinued, insomnia docusate sodium (COLACE) capsule 100 mg Given 02/10/2019 8:41 AM PRODUCER 100 mg 100 mg, Oral, Two times a day, First dose on Thu02/08/19 at 2100, Until Discontinued, Swallow cap whole. Should not be crushed or chewed, Given 02/09/2019 8:04 AM PRODUCER 100 mg Given 02/08/2019 8:55 PM PRODUCER 100 mg enoxaparin (LOVENOX) Given 02/09/2019 8:06 PM 40 mg Right Lower Abdomen subcutaneous injection PRODUCER Subcutaneous solution 40 mg 40 mg, Subcutaneous, Every twenty four hours, First dose on Thu02/09/19 at 2000, Until Discontinued, To avoid the loss of drug when using the 30 mg and 40 mg prefilled syringes, do not expel the air bubble from the syringe before the injection. Administration should be alternated between the left and right anterolateral and left and right posterolateral abdominal wall. The whole length of the needle should be introduced into a skin fold held between the thumb and forefinger; the skin fold should be held throughout the injection. To minimize bruising, do not rub the injection site after completion of the injection., hydrALAZINE (APRESOLINE) injection solution 10 mg 10 mg, IV, Every six hours prn, Starting Thu02/08/19 at 1601, Until Discontinued, specified parameter, to keep SBP less than 150 mmHg, 1 mL, Post-Procedure (Cath ), Repeat in 20 minutes if needed. If not successful after two doses, contact the interventional cardiology team., lamoTRIgine (laMICtal) tablet 200 mg Given 02/10/2019 10:54 AM PRODUCER 200 mg 200 mg, Oral, DAILY, First dose on Thu02/10/19 at 0900, Until Discontinued lisinopril (PRINIVIL, ZESTRIL) tablet 5 mg Given 02/10/2019 8:41 AM PRODUCER 5 mg 5 mg, Oral, Daily, First dose on Thu02/09/19 at 1535, Until Discontinued Given 02/09/2019 4:40 PM PRODUCER 5 mg metoprolol succinate (TOPROL XL) SR tablet Given 02/10/2019 8:41 AM PRODUCER 25 mg (24 hr) 25 mg 25 mg, Oral, Daily, First dose on Thu02/10/19 at 0900, Until Discontinued, Tablet may be broken in half, but should not be crushed or chewed. Hold for SBP less than 90 Hold for HR less than 55, nicotine (NICODERM) Applied 02/10/2019 8:45 AM PRODUCER 21 mg Arm Left Upper TD 21mg/24hr patch 21 mg (1 patch), Transdermal, Daily, First dose on Thu02/09/19 at 1110, Until Discontinued, Administer over 24 Hours Applied 02/09/2019 11:31 AM PRODUCER 21 mg Right Arm nicotine polacrilex (COMMIT) lozenge 2 mg Given 02/10/2019 1:24 PM PRODUCER 2 mg 2 mg (1 lozenge), Mouth/Throat, Every one hour prn, Starting 1/1/20 at 1107, Until Discontinued, smoking cessation, tobacco cravings, Should not be crushed or chewed, Given 02/10/2019 10:55 AM PRODUCER 2 mg Given 02/09/2019 9:34 PM PRODUCER 2 mg nitroglycerin (NITROSTAT) sublingual tablet Given 02/08/2019 7:58 PM PRODUCER 0.4 mg 0.4 mg 0.4 mg, Sublingual, Every five minutes prn, Starting Thu02/08/19 at 1601, Until Discontinued, chest pain, Post-Procedure (Cath), At onset of chest pain, dissolve one tablet under tongue. May repeat every 5 minutes for 3 doses. Do not crush or chew., omeprazole (priLOSEC) capsule 20 mg Given 02/10/2019 8:40 AM PRODUCER 20 mg 20 mg, Oral, Two times a day before meals, First dose on Thu02/09/19 at 1700, Until Discontinued, Swallow cap whole. Do not crush, chew or open., Given 02/09/2019 4:40 PM PRODUCER 20 mg ondansetron (ZOFRAN) injection solution 4 mg 4 mg, IV, Every four hours prn, Starting Thu02/08/19 at 1627, Until Discontinued, nausea, vomiting, 2 mL, Use FIRST. If preference is to further dilute for IV administration: First draw up patient-specific dose, then dilute to 10 mL with 0.9% sodium chloride., polyethylene glycol (MIRALAX) packet 1 packet 1 packet, Oral, One time a day prn, Starting Thu02/08/19 at 1627, Until Discontinued, constipation, not relieved by bisacodyl, Dissolve in 8 ounces of water, juice, soda, coffee, tea., spironolactone (ALDACTONE) tablet 12.5 mg Given 02/10/2019 10:54 AM PRODUCER 12.5 mg 12.5 mg, Oral, Daily, First dose on Thu02/10/19 at 0900, Until Discontinued, Hold for SBP less than 100, Medication Order MAR Action Action Date Dose Rate Site clopidogrel (PLAVIX) tablet Given 02/08/2019 3:47 PM PRODUCER 150 mg 75-600 mg 75-600 mg, Oral, Administer in Cardiac Elevator Service Technician, 1 dose, Thu02/08/19 at 1520, Under the direction of the provider in CCL. Do not give on the floor., Given 02/08/2019 3:14 PM PRODUCER 150 mg fentaNYL 100 mcg/2 mL preservative free Given 02/08/2019 2:53 PM PRODUCER 50 mcg injection solution 12.5-300 mcg 12.5-300 mcg, IV, Administer in Cardiac Elevator Service Technician, 1 dose, Thu02/08/19 at 1455, 6 mL, Under the direction of the provider in CCL. Do not give on the floor. For cardiac catheterization sedation under direction provider privileged to perform sedation., heparin (porcine) injection solution Given 02/08/2019 3:37 PM PRODUCER 1,000 Units 0-12,000 Units 0-12,000 Units, IV, Administer in Cardiac Elevator Service Technician, 1 dose, Thu02/08/19 at 1500, 12 mL, Under the direction of the provider in CCL. Do not give on the floor., Given 02/08/2019 3:06 PM PRODUCER 1,000 Units Given 02/08/2019 3:00 PM PRODUCER 2,000 Units iohexol (OMNIPAQUE) 350 mg/mL solution 150 Given 02/08/2019 4:07 PM PRODUCER 150 mL mL 150 mL, Intra-arterial, One time, 1 dose, Thu02/08/19 at 1610, 150 mL lidocaine PF (XYLOCAINE-MPF) 1 % preservative Given 02/08/2019 2:51 PM PRODUCER 2 mL free injection solution 0-40 mL 0-40 mL, Subcutaneous, Administer in Cardiac Elevator Service Technician, 1 dose, Thu02/08/19 at 1500, 40 mL, Given by provider in CCL. Do not give on the floor., metoprolol tartrate (LOPRESSOR) tablet 25 mg Given 02/09/2019 8:06 PM PRODUCER 25 mg 25 mg, Oral, Two times a day, First dose on Thu02/08/19 at 1630, Until Discontinued, Hold for SBP less than 90 Hold for HR less than 55, Given 02/09/2019 8:04 AM PRODUCER 25 mg Given 02/08/2019 8:55 PM PRODUCER 25 mg midazolam (VERSED) injection solution 0.5-10 Given 02/08/2019 2:55 PM PRODUCER 2 mg mg 0.5-10 mg, IV, Administer in Cardiac Elevator Service Technician, 1 dose, Thu02/08/19 at 1455, 10 mL, For cardiac catheterization sedation under direction provider privileged to perform sedation. Do not give on the floor., nitroglycerin (100 mcg/mL) in NS Given 02/08/2019 3:41 PM PRODUCER 4 mL 0-6 mL (0-600 mcg), Intra-arterial, Administer in Cardiac Elevator Service Technician, 1 dose, e 02/08/19 at 1520, 10 mL, Given by provider in CCL. Do not give on the floor., Given 02/08/2019 3:13 PM PRODUCER 3 mL omeprazole (priLOSEC) capsule 20 mg Given 02/09/2019 8:04 AM PRODUCER 20 mg 20 mg, Oral, One time a day before breakfast, First dose on Thu02/09/19 at 0700, Until Discontinued, Swallow cap whole. Do not crush, chew or open., omeprazole (priLOSEC) capsule 20 mg Given 02/09/2019 2:49 AM PRODUCER 20 mg 20 mg, Oral, One time, 1 dose, Thu02/09/19 at 0215, Swallow cap whole. Do not crush, chew or open., sodium chloride 0.9% IV solution New Bag 02/08/2019 6:54 PM PRODUCER 100 mL/hr IV, at 100 mL/hr, Continuous, Starting Thu02/08/19 at 1655, Until Thu02/09/19 at 0254, 1,000 mL, Post-Procedure (Cath) New Bag 02/08/2019 4:25 PM PRODUCER 100 mL/hr verapamil-hEParin in normal saline (radial Given 02/08/2019 2:51 PM PRODUCER cocktail) Intra-arterial, Administer in Cardiac Elevator Service Technician, 1 dose, Thu02/08/19 at 1500, 10 mL, Under the direction of the provider in CCL. Do not give on the floor., documented in this encounter
== END 2019-02-08 14:05 ==
LOC: KA.ED 12:30
DX: I21.3 ST elevation (STEMI) myocardial infarction of unspecified site (principal); I24.9 Acute ischemic heart disease, unspecified; I25.10 Atherosclerotic heart disease of native coronary artery without angina pectoris; I10 Essential (primary) hypertension; I25.2 Old myocardial infarction; Z88.5 Allergy status to narcotic agent; Z88.8 Allergy status to other drugs, medicaments and biological substances; Z79.899 Other long term (current) drug therapy; Z79.82 Long term (current) use of aspirin
CPT/HCPCS: 71045; 80053; 82550; 82553; 84484; 85025; 85730; 93005; 96365; 96368; 99284; 99285-25; A9270-GY; J1644; J3101; J7030

== ENCOUNTER 2019-02-12 13:10 | Emergency (ER) | payer MEDICAID ==
[2019-02-12 13:19] VITALS: BP 126/71; PULSE 89
[2019-02-12] MEDS ORDERED: Ketorolac 60 MG/2 ML SDV IM ONE (13:51)
--- NOTE | 2019-02-12 13:53 | EDM.PDOC ---
ED HPI GENERAL MEDICAL PROBLEM - General Chief Complaint: Back Pain or Injury Stated Complaint: low back pain Time Seen by Provider: 02/12/19 13:35 Source of Information: Reports: Patient History Limitations: Reports: No Limitations - History of Present Illness INITIAL COMMENTS - FREE TEXT/NARRATIVE: Presents with low back pain, chronic in nature, with exhaustion of previous medication regimen. He was noted to be out of his medications when he presented on the with a acute STEMI and was transferred [facility] for stenting. He has been feeling good in general other than chronic back pain which has been mildly exacerbated with the events of this week. Denies any cardiac or respiratory symptoms. Onset: Gradual Duration: Chronic Location: Reports: Back Lower Back Pain Score (Numeric/FACES): 10 - Related Data Allergies Allergy/AdvReac Type Severity Reaction Status Date / Time codeine Allergy Dizziness Verified 02/12/19 13:20 #NO NARCOTICS AdvReac Severe Other Uncoded 02/12/19 13:20 Home Meds: Home Meds buPROPion [buPROPion XL] 100 mg PO DAILY 08/08/14 [History] Citalopram [Citalopram HBr] 40 mg PO DAILY 12/01/15 [History] lamoTRIgine [Lamotrigine] 200 mg PO BEDTIME 12/01/15 [History] Omeprazole 40 mg PO BID 10/10/16 [History] Aspirin 81 mg PO DAILY 01/17/18 [History] Nitroglycerin [Nitrostat] 0.4 mg SL ONETIME PRN 01/17/18 [History] busPIRone [Buspar] 5 mg PO TID PRN 01/17/18 [History] atorvaSTATin [Lipitor] 10 mg PO BEDTIME 12/08/18 [History] Baclofen 20 mg PO QID 12/28/18 [History] Clopidogrel [Plavix] 75 mg PO DAILY 02/12/19 [History] Lisinopril [Zestril] 5 mg PO DAILY 02/12/19 [History] Metoprolol Succinate 25 mg PO DAILY 02/12/19 [History] Spironolactone [Aldactone] 12.5 mg PO DAILY 02/12/19 [History] atorvaSTATin [Lipitor] 40 mg PO DAILY 02/12/19 [History] Past Medical History HEENT History: Reports: Impaired Vision Other HEENT History: wears glasses Cardiovascular History: Reports: Hypertension, HI, Stents Other Cardiovascular History: HI in 2006 with one stent placed, HI in 2010 with 2 stents placed. 2 stents placed 08 February 2019. Decreased ejection fraction at roughly 35% at this time Respiratory History: Reports: Sleep Apnea Gastrointestinal History: Reports: GERD, Hiatal Hernia Other Gastrointestinal History: H. Pylori Musculoskeletal History: Reports: Back Pain, Chronic, Other (See Below) Other Musculoskeletal History: fractured fibula Feb 2017 Psychiatric History: Reports: Anxiety, Depression - Infectious Disease History Infectious Disease History: Reports: Chicken Pox, Measles, Mumps - Past Surgical History Cardiovascular Surgical History: Reports: Coronary Artery Stent Respiratory Surgical History: Reports: None GI Surgical History: Reports: None Musculoskeletal Surgical History: Reports: Arthroscopic Knee, Other (See Below) Other Musculoskeletal Surgeries/Procedures:: plate in the R ankle - Past Imaging History Past Imaging History: Reports: Xray Social & Family History - Family History Family Medical History: Noncontributory Cardiac: Reports: HI - Caffeine Use Caffeine Use: Reports: Coffee, Energy Drinks, Soda - Living Situation & Occupation Living situation: Reports: with Significant Other Occupation: Unemployed ED ROS GENERAL - Review of Systems Review Of Systems: Comprehensive ROS is negative, except as noted in HPI. ED EXAM,LOWER BACK PAIN/INJURY - Physical Exam Exam: See Below Text/Narrative:: Alert oriented in mild distress, changes with positioning. Increased lumbar back pain with motion of the extremities leg lift. Since chronic in nature. Thorax is clear, no wheezes no crackles. The cardiac is regular with no appreciated murmur. Small bruise to the right wrist from radial artery access for his to stent placement. Overall is in good spirits and 10 minute discussion on limited medication aspects secondary of his recent medication change. Strongly advised following up with primary provider for medication issues as well as post stenting follow- up this week. Exam Limited By: No Limitations General Appearance: Alert, WD/WN, No Apparent Distress Course - Vital Signs Last Recorded V/S: Last Vital Signs Temp 36.2 C 02/12/19 13:16 Pulse 89 02/12/19 13:16 Resp 18 02/12/19 13:16 BP 126/71 02/12/19 13:16 Pulse Ox 100 02/12/19 13:16 Departure - Departure Time of Disposition: 14:10 Disposition: Home, Self-Care 01 Condition: Fair Clinical Impression: Smoking addiction, Back pain at L4-L5 level - Discharge Information *PRESCRIPTION DRUG MONITORING PROGRAM REVIEWED*: Not Applicable *COPY OF PRESCRIPTION DRUG MONITORING REPORT IN PATIENT MAULIK: Not Applicable Additional Instructions: You need to go home, rest, ice or heat to your back. No lifting With the stent placement this past week, there are serious considerations on what form of medication you can take on a daily basis, but will not interact with your new medications started by cardiology services. Since we know you had exhausted all of your medication, other than your nitroglycerin prior to the day you presented with here heart attack, I advise that you contact the clinic Thursday, to make them aware of your need of refills, and consideration for what they can safely continue or substitute for you. Smoking cessation is very important for overall general health, but in your case with the recent heart issue with stenting, and the fact her ejection fraction is in the 35% range, your need for healthy oxygenation delivery as possible. The chronic use of nonsteroidal anti-inflammatory medicines such as ibuprofen or Aleve and even Celebrex are somewhat controversial, and regards to the stenting in the medications you have been placed on. Please call To the clinic Thursday to advise them of your need of review of medications as well as your appointment the mid part of the week. Sepsis Event Note - Evaluation Sepsis Screening Result: No Definite Risk - Focused Exam Vital Signs: Vital Signs Temp Pulse Resp BP Pulse Ox 02/12/19 13:16 36.2 C 89 18 126/71 100 Date Exam was Performed: 02/12/19 Time Exam was Performed: 13:34 - Problem List & Annotations (1) Back pain at L4-L5 level SNOMED Code(s): 892602418 Code(s): M54.5 - LOW BACK PAIN Status: Chronic Priority: Medium (2) Smoking addiction SNOMED Code(s): 014237236, 74240602, 122762481 Code(s): F17.200 - NICOTINE DEPENDENCE, UNSPECIFIED, UNCOMPLICATED Status: Acute Priority: High - Problem List Review Problem List Initiated/Reviewed/Updated: Yes - Assessment/Plan Plan: You need to go home, rest, ice or heat to your back. No lifting With the stent placement this past week, there are serious considerations on what form of medication you can take on a daily basis, but will not interact with your new medications started by cardiology services. Since we know you had exhausted all of your medication, other than your nitroglycerin prior to the day you presented with here heart attack, I advise that you contact the clinic Thursday, to make them aware of your need of refills, and consideration for what they can safely continue or substitute for you. Smoking cessation is very important for overall general health, but in your case with the recent heart issue with stenting, and the fact her ejection fraction is in the 35% range, your need for healthy oxygenation delivery as possible. The chronic use of nonsteroidal anti-inflammatory medicines such as ibuprofen or Aleve and even Celebrex are somewhat controversial, and regards to the stenting in the medications you have been placed on. Please call To the clinic Thursday to advise them of your need of review of medications as well as your appointment the mid part of the week.
== END 2019-02-12 14:08 | disposition home or self-care (01) ==
LOC: KA.ED 13:10
DX: M54.5 Low back pain (principal); F17.200 Nicotine dependence, unspecified, uncomplicated; I10 Essential (primary) hypertension; I25.2 Old myocardial infarction; K21.9 Gastro-esophageal reflux disease without esophagitis; F41.9 Anxiety disorder, unspecified; F32.9 Major depressive disorder, single episode, unspecified; Z79.899 Other long term (current) drug therapy; Z79.82 Long term (current) use of aspirin; Z79.02 Long term (current) use of antithrombotics/antiplatelets; Z88.5 Allergy status to narcotic agent
CPT/HCPCS: 96372; 99283; 99284; J1885

== ENCOUNTER 2019-02-15 20:51 | Emergency (ER) | payer MEDICAID ==
[2019-02-15] MEDS ORDERED: Sodium Chloride 0.9% 10 ML Syringe FLUSH PRN (21:06)
--- NOTE | 2019-02-15 21:24 | EDM.PDOC ---
ED HPI GENERAL MEDICAL PROBLEM - General Chief Complaint: General Stated Complaint: DIZZINESS Time Seen by Provider: 02/15/19 21:00 Source of Information: Reports: Patient, EMS History Limitations: Reports: No Limitations - History of Present Illness INITIAL COMMENTS - FREE TEXT/NARRATIVE: Patient presents via ambulance after a 10-15 minute episode of diaphoresis and lightheadedness that started abruptly at about 8:15 this evening. He was sitting watching TV when it happened and he felt that if he were to stand up he would fall or faint. His called the ambulance and by the time they arrived he had started to feel better. He had a fan on himself to cool down which helped. He is feeling normal now. It lasted 10-15 minutes he said. He denies any pain in chest, abdomen, arm or neck. Seven days ago he had an MS and had two stents placed; these were in vessels that had been stented in 2010 but were now 80 and 90% blocked. He says the feeling he had tonight was nothing like he had a week ago with the MS. He is taking Plavix and aspirin 81 along with an increase in his atorvastatin. He is still smoking but is planning to see his PCP in two days to start Chantix. - Related Data Allergies Allergy/AdvReac Type Severity Reaction Status Date / Time codeine Allergy Dizziness Verified 02/15/19 21:08 #NO NARCOTICS AdvReac Severe Other Uncoded 02/15/19 21:08 Home Meds: Home Meds buPROPion [buPROPion XL] 100 mg PO DAILY 08/08/14 [History] Citalopram [Citalopram HBr] 40 mg PO DAILY 12/01/15 [History] lamoTRIgine [Lamotrigine] 200 mg PO BEDTIME 12/01/15 [History] Omeprazole 40 mg PO BID 10/10/16 [History] Aspirin 81 mg PO DAILY 01/17/18 [History] Nitroglycerin [Nitrostat] 0.4 mg SL ONETIME PRN 01/17/18 [History] busPIRone [Buspar] 5 mg PO TID PRN 01/17/18 [History] Baclofen 20 mg PO QID 12/28/18 [History] Clopidogrel [Plavix] 75 mg PO DAILY 02/12/19 [History] Lisinopril [Zestril] 5 mg PO DAILY 02/12/19 [History] Metoprolol Succinate 25 mg PO DAILY 02/12/19 [History] Spironolactone [Aldactone] 12.5 mg PO DAILY 02/12/19 [History] atorvaSTATin [Lipitor] 40 mg PO DAILY 02/12/19 [History] Past Medical History HEENT History: Reports: Impaired Vision Other HEENT History: wears glasses Cardiovascular History: Reports: Hypertension, MS, Stents Other Cardiovascular History: MS in 2005 with one stent placed, MS in 2010 with 2 stents placed. 2 stents placed 08 February 2019. Decreased ejection fraction at roughly 35% at this time Respiratory History: Reports: Sleep Apnea Gastrointestinal History: Reports: GERD, Hiatal Hernia Other Gastrointestinal History: H. Pylori Musculoskeletal History: Reports: Back Pain, Chronic, Other (See Below) Other Musculoskeletal History: fractured fibula Feb 2017 Psychiatric History: Reports: Anxiety, Depression - Infectious Disease History Infectious Disease History: Reports: Chicken Pox, Measles, Mumps - Past Surgical History Cardiovascular Surgical History: Reports: Coronary Artery Stent Respiratory Surgical History: Reports: None GI Surgical History: Reports: None Musculoskeletal Surgical History: Reports: Arthroscopic Knee, Other (See Below) Other Musculoskeletal Surgeries/Procedures:: plate in the R ankle - Past Imaging History Past Imaging History: Reports: Xray Social & Family History - Family History Family Medical History: Noncontributory Cardiac: Reports: MS - Tobacco Use Smoking Status *Q: Current Every Day Smoker Years of Tobacco use: 30 Packs/Tins Daily: 0.5 - Caffeine Use Caffeine Use: Reports: Coffee, Soda - Recreational Drug Use Recreational Drug Use: No - Living Situation & Occupation Living situation: Reports: with Significant Other Occupation: Unemployed ED ROS GENERAL - Review of Systems Review Of Systems: See Below Constitutional: Reports: Weakness, Diaphoresis, Other (lightheaded). Denies: Fever, Chills, Malaise HEENT: Denies: Throat Pain, Vertigo, Vision Change Respiratory: Denies: Shortness of Breath, Cough Cardiovascular: Reports: Lightheadedness. Denies: Chest Pain, Syncope Endocrine: Reports: Fatigue GI/Abdominal: Denies: Abdominal Pain, Diarrhea, Nausea, Vomiting : Denies: Dysuria, Flank Pain Musculoskeletal: Denies: Neck Pain, Shoulder Pain, Arm Pain, Back Pain, Hand Pain, Leg Pain Skin: Denies: Cyanosis, Jaundice, Mottled, Pallor, Diaphoresis Neurological: Denies: Confusion, Dizziness, Seizure, Syncope, Trouble Speaking, Difficulty Walking Psychiatric: Denies: Agitation, Anxiety, Confusion Hematologic/Lymphatic: Denies: Anemia ED EXAM, GENERAL - Physical Exam Exam: See Below Exam Limited By: No Limitations General Appearance: Alert, WD/WN, No Apparent Distress Eye Exam: Bilateral Eye: EOMI, Normal Inspection, PERRL Ears: Normal External Exam, Hearing Grossly Normal Nose: Normal Inspection, No Blood Throat/Mouth: Normal Inspection, Normal Lips, Normal Voice, No Airway Compromise Head: Atraumatic, Normocephalic Neck: Normal Inspection, Supple, Non-Tender, Full Range of Motion. No: Carotid Bruit Respiratory/Chest: No Respiratory Distress, Lungs Clear, Normal Breath Sounds, No Accessory Muscle Use Cardiovascular: Normal Peripheral Pulses, Regular Rate, Rhythm, No Edema, No Murmur GI/Abdominal: Normal Bowel Sounds, Soft, Non-Tender, No Organomegaly, No Distention, No Abnormal Bruit Back Exam: Normal Inspection, Full Range of Motion. No: CVA Tenderness (L), CVA Tenderness (R) Extremities: Normal Inspection, Normal Range of Motion, Non-Tender, No Pedal Edema, Normal Capillary Refill Neurological: Alert, Oriented, Normal Cognition, No Motor/Sensory Deficits Psychiatric: Normal Affect, Normal Mood Skin Exam: Warm, Dry, Intact, Normal Color, No Rash Course - Vital Signs Last Recorded V/S: Last Vital Signs Temp 97.0 F 02/15/19 20:51 Pulse 78 02/15/19 22:10 Resp 17 02/15/19 22:10 BP 109/55 L 02/15/19 22:10 Pulse Ox 96 02/15/19 22:10 - Orders/Labs/Meds Orders: Active Orders 24 hr Category Date Time Status EKG Documentation Completion [RC] ASDIRECTED Care 02/15/19 21:06 Active Peripheral IV Care [RC] . DIRECTED Care 02/15/19 21:06 Active Sodium Chloride 0.9% [Saline Flush] Med 02/15/19 21:06 Active 10 ml FLUSH Q8HR PRN Peripheral IV Insertion Adult [OM.PC] Routine Oth 02/15/19 21:06 Ordered EKG 12 Lead [EK] Routine Ther 02/15/19 21:05 Ordered Medication Orders Sodium Chloride (Saline Flush) 10 ml FLUSH Q8HR PRN PRN Reason: keep vein open Labs: Laboratory Tests 02/15/19 02/15/19 Range/Units 21:00 21:00 WBC 9.08 (5.00-10.00) 10^3/uL RBC 4.18 L (4.50-6.00) 10^6/uL Hgb 14.5 D (13.0-17.0) g/dL Hct 43.4 (40.0-52.0) % MCV 103.8 H (82.0-92.0) fL MCH 34.7 H (27.0-31.0) pg MCHC 33.4 (32.0-36.0) g/dL RDW 12.5 (11.5-14.5) % Plt Count 190 (150-400) 10^3/uL MPV 10.0 (7.4-10.4) fL Immature Gran % (Auto) 0.2 (0.0-5.0) % Neut % (Auto) 59.2 (50.0-70.0) % Lymph % (Auto) 27.6 (20.0-40.0) % [place] % (Auto) 8.3 H (2.0-8.0) % Eos % (Auto) 4.1 H (1.0-3.0) % Baso % (Auto) 0.6 (0.0-1.0) % Immature Gran # (Auto) 0.02 (0.00-0.50) 10^3/uL Neut # (Auto) 5.38 (2.50-7.00) 10^3/uL Lymph # (Auto) 2.51 (1.00-4.00) 10^3/uL [place] # (Auto) 0.75 (0.10-0.80) 10^3/uL Eos # (Auto) 0.37 H (0.10-0.30) 10^3/uL Baso # (Auto) 0.05 (0.00-0.10) 10^3/uL Sodium 140 (136-145) mmol/L Potassium 3.9 (3.3-5.3) mmol/L Chloride 103 (98-115) mmol/L Carbon Dioxide 23.7 (21.0-32.0) mmol/L Anion Gap 17.2 H (5-15) mmol/L BUN 20 (6-25) mg/dL Creatinine 1.65 H (0.51-1.17) mg/dL Est Cr Clr Drug Dosing 52.91 mL/min Estimated GFR (MDRD) 43 mL/min Glucose 111 H (75 - 99) mg/dL Calcium 8.8 (8.7-10.3) mg/dL Total Bilirubin 0.4 (0.2-1.0) mg/dL AST 16 (15-37) U/L ALT 26 (12-78) U/L Alkaline Phosphatase 52 (46-116) IU/L CK-MB (CK-2) 1.80 (0.00-4.30) ng/mL Troponin I 0.22 H* (0.00-0.070) ng/mL Total Protein 6.8 (6.4-8.2) g/dL Albumin 3.45 (3.00-4.80) g/dL Meds: Medications Generic Name Dose Route Start Last Admin Trade Name Freq PRN Reason Stop Dose Admin Sodium Chloride 10 ml 02/15/19 21:06 Saline Flush FLUSH Q8HR PRN keep vein open - Re-Assessments/Exams Free Text/Narrative Re-Assessment/Exam: 02/15/19 22:18 Patient is feeling fine/normal. EKG is okay. Troponin is 0.22, CKMB is 1.8; I ordered the CKMB along with troponin to help differentiate between acute event and the MS from 7 days ago. After the results came back I discussed with banker mason on-call at [facility] who informed me that the troponin can trend down for 2-3 weeks and doesn' t recommend any further testing with the normal CKMB and normal EKG with no chest pain. I discussed findings with patient and strongly urged him to stop smoking. He assures me he will be seeing Dr. Georges on and do everything he can to stop smoking. He also tells me that he has anxiety and is out of his Bupropion but is planning to get it refilled as soon as his insurance is active again, shortly. He is discharged to home in stable condition. Departure - Departure Time of Disposition: 22:14 Disposition: Home, Self-Care 01 Condition: Good Clinical Impression: Anxiety, Diaphoresis, Lightheadedness - Discharge Information Instructions: Living With Anxiety, Dizziness, [id number] Referrals: Vanessa Martinez MD [Primary Care Provider] - Forms: ED Department Discharge Additional Instructions: 1. Drink 8 cups of water daily. 2. Follow up with your PCP on as scheduled. 3. It is very important that you stop smoking to lower your risk of further heart disease. 4. It will be helpful to get back on your anxiety medication soon. Sepsis Event Note - Evaluation Sepsis Screening Result: No Definite Risk - Focused Exam Vital Signs: Vital Signs Temp Pulse Resp BP Pulse Ox 02/15/19 22:10 78 17 109/55 L 96 02/15/19 21:40 81 20 99/57 L 96 02/15/19 21:25 79 17 97/48 L 96 02/15/19 20:51 97.0 F 86 16 89/60 L 97 Date Exam was Performed: 02/15/19 Time Exam was Performed: 22:18 - My Orders Last 24 Hours: My Active Orders 02/15/19 21:05 EKG 12 Lead [EK] Routine 02/15/19 21:06 EKG Documentation Completion [RC] ASDIRECTED Peripheral IV Care [RC] . DIRECTED Sodium Chloride 0.9% [Saline Flush] 10 ml FLUSH Q8HR PRN Peripheral IV Insertion Adult [OM.PC] Routine - Assessment/Plan Last 24 Hours: My Active Orders 02/15/19 21:05 EKG 12 Lead [EK] Routine 02/15/19 21:06 EKG Documentation Completion [RC] ASDIRECTED Peripheral IV Care [RC] . DIRECTED Sodium Chloride 0.9% [Saline Flush] 10 ml FLUSH Q8HR PRN Peripheral IV Insertion Adult [OM.PC] Routine
[2019-02-15 21:50] LABS: ANION GAP 17.2 mmol/L (5-15)
[2019-02-15 22:34] VITALS: BP 122/47; PULSE 85
== END 2019-02-15 22:35 | disposition home or self-care (01) ==
LOC: KA.ED 20:51
DX: R42 Dizziness and giddiness (principal); F41.9 Anxiety disorder, unspecified; R61 Generalized hyperhidrosis; I10 Essential (primary) hypertension; F17.210 Nicotine dependence, cigarettes, uncomplicated; Z88.5 Allergy status to narcotic agent; Z79.899 Other long term (current) drug therapy; Z79.82 Long term (current) use of aspirin
CPT/HCPCS: 80053; 82553; 84484; 85025; 93005; 99284; 99284-25

== ENCOUNTER 2019-02-19 01:34 | Emergency (ER) | payer SELFPAY ==
[2019-02-19 01:41] VITALS: BP 79/37; PULSE 83
--- NOTE | 2019-02-19 02:06 | EDM.PDOC ---
ED HPI GENERAL MEDICAL PROBLEM - General Chief Complaint: Chest Pain Stated Complaint: anxiety Time Seen by Provider: 02/19/19 01:34 Source of Information: Reports: Patient History Limitations: Reports: No Limitations - History of Present Illness INITIAL COMMENTS - FREE TEXT/NARRATIVE: Patient presents with lightheadedness and dizziness and nausea that began at 0100 this morning and lasted about 20 minutes. He had called the ambulance but symptoms were gone when they arrived and haven't returned. He still came in but thinks it might be just anxiety. He was sitting watching TV and drank about 5 beers. He also uses marijuana. He doesn't drink much water, only 3 cups today he thinks. He hasn't had his buspirone for a couple weeks and is working on getting MA set up. He had two cardiac stents placed 2.5 weeks ago and is taking his Plavix daily. He was here in ER 3 days ago and says this feels like that again. - Related Data Allergies Allergy/AdvReac Type Severity Reaction Status Date / Time codeine Allergy Dizziness Verified 02/19/19 01:44 #NO NARCOTICS AdvReac Severe Other Uncoded 02/15/19 21:08 Home Meds: Home Meds buPROPion [buPROPion XL] 100 mg PO DAILY 08/08/14 [History] Citalopram [Citalopram HBr] 40 mg PO DAILY 12/01/15 [History] lamoTRIgine [Lamotrigine] 200 mg PO BEDTIME 12/01/15 [History] Omeprazole 40 mg PO BID 10/10/16 [History] Aspirin 81 mg PO DAILY 01/17/18 [History] Nitroglycerin [Nitrostat] 0.4 mg SL ONETIME PRN 01/17/18 [History] busPIRone [Buspar] 5 mg PO TID PRN 01/17/18 [History] Baclofen 20 mg PO QID PRN 12/28/18 [History] Clopidogrel [Plavix] 75 mg PO DAILY 02/12/19 [History] Lisinopril [Zestril] 5 mg PO DAILY 02/12/19 [History] Metoprolol Succinate 25 mg PO DAILY 02/12/19 [History] Spironolactone [Aldactone] 12.5 mg PO DAILY 02/12/19 [History] atorvaSTATin [Lipitor] 40 mg PO DAILY 02/12/19 [History] Past Medical History HEENT History: Reports: Impaired Vision Other HEENT History: wears glasses Cardiovascular History: Reports: Hypertension, [place], Stents Other Cardiovascular History: [place] in 2006 with one stent placed, [place] in 2010 with 2 stents placed. 2 stents placed 08 February 2019. Decreased ejection fraction at roughly 35% at this time Respiratory History: Reports: Sleep Apnea Gastrointestinal History: Reports: GERD, Hiatal Hernia Other Gastrointestinal History: H. Pylori Musculoskeletal History: Reports: Back Pain, Chronic, Other (See Below) Other Musculoskeletal History: fractured fibula Feb 2017 Psychiatric History: Reports: Anxiety, Depression - Infectious Disease History Infectious Disease History: Reports: Chicken Pox, Measles, Mumps - Past Surgical History Cardiovascular Surgical History: Reports: Coronary Artery Stent Respiratory Surgical History: Reports: None GI Surgical History: Reports: None Musculoskeletal Surgical History: Reports: Arthroscopic Knee, Other (See Below) Other Musculoskeletal Surgeries/Procedures:: plate in the R ankle - Past Imaging History Past Imaging History: Reports: Xray Social & Family History - Family History Family Medical History: Noncontributory Cardiac: Reports: [place] - Caffeine Use Caffeine Use: Reports: Coffee, Soda - Living Situation & Occupation Living situation: Reports: with Significant Other Occupation: Unemployed ED ROS GENERAL - Review of Systems Review Of Systems: See Below Constitutional: Denies: Fever, Chills, Weakness HEENT: Reports: No Symptoms Respiratory: Denies: Shortness of Breath, Cough Cardiovascular: Reports: Lightheadedness. Denies: Chest Pain, Syncope (but for awhile felt like he could if he stood up) GI/Abdominal: Reports: Nausea (gone now). Denies: Abdominal Pain, Diarrhea, Vomiting : Denies: Dysuria, Flank Pain Musculoskeletal: Denies: Neck Pain, Shoulder Pain, Arm Pain, Back Pain Skin: Denies: Cyanosis, Jaundice, Mottled, Pallor, Diaphoresis Neurological: Reports: Dizziness. Denies: Confusion, Headache, Seizure, Syncope , Trouble Speaking, Difficulty Walking Psychiatric: Reports: Anxiety. Denies: Agitation, Confusion ED EXAM, GENERAL - Physical Exam Exam: See Below Exam Limited By: No Limitations General Appearance: Alert, WD/WN, No Apparent Distress Eye Exam: Bilateral Eye: EOMI, Normal Inspection, PERRL Ears: Normal External Exam, Hearing Grossly Normal Nose: Normal Inspection, No Blood Throat/Mouth: Normal Inspection, Normal Lips, Normal Voice, No Airway Compromise Head: Atraumatic, Normocephalic Neck: Normal Inspection, Supple, Full Range of Motion Respiratory/Chest: No Respiratory Distress, Lungs Clear, Normal Breath Sounds Cardiovascular: Normal Peripheral Pulses, Regular Rate, Rhythm, No Murmur Peripheral Pulses: 2+: Carotid (L), Carotid (R), Radial (L), Radial (R), Posterior Tibial (L), Posterior Tibial (R) GI/Abdominal: Normal Bowel Sounds, Soft, Non-Tender, No Organomegaly, No Distention Back Exam: Normal Inspection, Full Range of Motion. No: CVA Tenderness (L), CVA Tenderness (R) Extremities: Normal Inspection, Normal Range of Motion Neurological: Alert, Oriented, Normal Cognition, No Motor/Sensory Deficits Psychiatric: Normal Affect, Normal Mood Skin Exam: Warm, Dry, Intact, Normal Color, No Rash Course - Vital Signs Last Recorded V/S: Last Vital Signs Temp 97.5 F 02/19/19 01:34 Pulse 83 02/19/19 01:34 Resp 18 02/19/19 01:34 BP 79/37 L 02/19/19 01:34 Pulse Ox 95 02/19/19 01:34 - Orders/Labs/Meds Labs: Laboratory Tests 02/19/19 02/19/19 Range/Units 02:15 02:15 WBC 10.85 H (5.00-10.00) 10^3/uL RBC 3.80 L (4.50-6.00) 10^6/uL Hgb 13.7 (13.0-17.0) g/dL Hct 40.2 (40.0-52.0) % MCV 105.8 H (82.0-92.0) fL MCH 36.1 H (27.0-31.0) pg MCHC 34.1 (32.0-36.0) g/dL RDW 12.5 (11.5-14.5) % Plt Count 190 (150-400) 10^3/uL MPV 9.9 (7.4-10.4) fL Immature Gran % (Auto) 0.3 (0.0-5.0) % Neut % (Auto) 72.5 H (50.0-70.0) % Lymph % (Auto) 16.8 L (20.0-40.0) % [place] % (Auto) 6.8 (2.0-8.0) % Eos % (Auto) 3.0 (1.0-3.0) % Baso % (Auto) 0.6 (0.0-1.0) % Immature Gran # (Auto) 0.03 (0.00-0.50) 10^3/uL Neut # (Auto) 7.87 H (2.50-7.00) 10^3/uL Lymph # (Auto) 1.82 (1.00-4.00) 10^3/uL [place] # (Auto) 0.74 (0.10-0.80) 10^3/uL Eos # (Auto) 0.33 H (0.10-0.30) 10^3/uL Baso # (Auto) 0.06 (0.00-0.10) 10^3/uL Sodium 140 (136-145) mmol/L Potassium 3.8 (3.3-5.3) mmol/L Chloride 105 (98-115) mmol/L Carbon Dioxide 22.5 (21.0-32.0) mmol/L Anion Gap 16.3 H (5-15) mmol/L BUN 22 (6-25) mg/dL Creatinine 1.38 H (0.51-1.17) mg/dL Est Cr Clr Drug Dosing 63.26 mL/min Estimated GFR (MDRD) 53 mL/min Glucose 92 (75 - 99) mg/dL Calcium 8.3 L (8.7-10.3) mg/dL CK-MB (CK-2) 2.90 (0.00-4.30) ng/mL Troponin I 0.08 H* (0.00-0.070) ng/mL Meds: Medications Discontinued Medications Generic Name Dose Route Start Last Admin Trade Name Freq PRN Reason Stop Dose Admin Sodium Chloride 1,000 mls @ 999 mls/hr 02/19/19 02:09 02/19/19 02:24 Normal Saline IV 02/19/19 03:09 999 mls/hr .BOLUS ONE Administration - Re-Assessments/Exams Free Text/Narrative Re-Assessment/Exam: 02/19/19 02:59 Patient is feeling fine and wants to go home. EKG showed low amplitude T-wave inversions in V1-3 that weren't there 3 days ago; therefore we did cardiac markers. Troponin is still trending down nicely from 0.22 three days ago. CKMB is normal. I had seen patient in ER at that time and discussed case with the medical hospital sales who felt it was very normal for the troponin to trend down over 2-3 weeks following an event ([place] and two stents placed 2.5 weeks ago). He wanted to confirm patient is taking his Plavix daily and patient says he is. I reviewed the literature on causes of T-wave inversion which are numerous and can include anxiety. Discussed findings and recommendations with patient. Patient discharged to home in stable condition. Departure - Departure Time of Disposition: 02:55 Disposition: Home, Self-Care 01 Condition: Good Clinical Impression: Lightheaded, Anxiety Hypotension Qualifiers: Hypotension type: hypotension due to hypovolemia Qualified Code(s): I95.89 - Other hypotension Forms: ED Department Discharge Additional Instructions: 1. Try to drink 8 cups of water daily. 2. Get back on your anxiety medications as soon as possible. 3. Follow up with your PCP if anxiety or lightheadedness persists. Sepsis Event Note - Evaluation Sepsis Screening Result: No Definite Risk - Focused Exam Vital Signs: Vital Signs Temp Pulse Resp BP Pulse Ox 02/19/19 01:34 97.5 F 83 18 79/37 L 95 Date Exam was Performed: 02/19/19 Time Exam was Performed: 03:12
[2019-02-19] MEDS ORDERED: Sodium Chloride 0.9% 1,000 ML IV ONE (02:09)
[2019-02-19 02:49] LABS: ANION GAP 16.3 mmol/L (5-15)
== END 2019-02-19 03:30 | disposition home or self-care (01) ==
LOC: KA.ED 01:34
DX: I95.89 Other hypotension (principal); F41.9 Anxiety disorder, unspecified; I10 Essential (primary) hypertension; I25.2 Old myocardial infarction; K21.9 Gastro-esophageal reflux disease without esophagitis; Z95.5 Presence of coronary angioplasty implant and graft; Z79.899 Other long term (current) drug therapy; Z79.82 Long term (current) use of aspirin; Z88.5 Allergy status to narcotic agent
CPT/HCPCS: 80048; 82553; 84484; 85025; 93005; 96360; 99284; J7030

== ENCOUNTER 2019-07-21 15:33 | Emergency (ER) | payer MEDICARE, MEDICAID ==
[2019-07-21 15:43] VITALS: BP 101/71; PULSE 72
[2019-07-21] MEDS ORDERED: Acetaminophen 500 MG Tab PO ONE (17:01)
--- NOTE | 2019-07-21 17:15 | EDM.PDOC ---
ED HPI GENERAL MEDICAL PROBLEM - General Chief Complaint: Back Pain or Injury Stated Complaint: BACK PAIN Time Seen by Provider: 07/21/19 16:16 Source of Information: Reports: Patient History Limitations: Reports: No Limitations - History of Present Illness INITIAL COMMENTS - FREE TEXT/NARRATIVE: Patient presents with chronic right SI joint pain that is worsening again the last couple days. He has been getting SI injections from [facility] every 3 months but the last two times the pain control hasn't lasted long enough. He is only 2 months out from the last injection. He says Ibuprofen and Tylenol don 't help. He has had problems with narcotics in the past including intolerance and addiction. Patient says he hasn't tried Ibuprofen or Tylenol recently or regularly. Lower Back Pain Score (Numeric/FACES): 10 - Related Data Allergies Allergy/AdvReac Type Severity Reaction Status Date / Time codeine Allergy Dizziness Verified 02/19/19 01:44 #NO NARCOTICS AdvReac Severe Other Uncoded 02/15/19 21:08 Home Meds: Home Meds buPROPion [buPROPion XL] 100 mg PO DAILY 08/08/14 [History] Aspirin 81 mg PO DAILY 01/17/18 [History] Nitroglycerin [Nitrostat] 0.4 mg SL ONETIME PRN 01/17/18 [History] busPIRone [Buspar] 5 mg PO TID PRN 01/17/18 [History] Clopidogrel [Plavix] 75 mg PO DAILY 02/12/19 [History] Metoprolol Succinate 25 mg PO DAILY 02/12/19 [History] Spironolactone [Aldactone] 12.5 mg PO DAILY 02/12/19 [History] atorvaSTATin [Lipitor] 80 mg PO DAILY 02/12/19 [History] lisinopriL [Zestril] 5 mg PO DAILY 02/12/19 [History] Escitalopram [Lexapro] 20 mg PO DAILY 07/21/19 [History] RABEprazole Sodium [Rabeprazole Sodium] 20 mg PO DAILY 07/21/19 [History] Past Medical History HEENT History: Reports: Impaired Vision Other HEENT History: wears glasses Cardiovascular History: Reports: High Cholesterol, Hypertension, [place] Other Cardiovascular History: [place] stent [place] with 2 stents placed. 2 stents placed 08 February 2019. Decreased ejection fraction at roughly 35% at this time Respiratory History: Reports: Sleep Apnea Other Respiratory History: CPAP USAGE Gastrointestinal History: Reports: GERD, Hiatal Hernia Other Gastrointestinal History: H. Pylori Musculoskeletal History: Reports: Back Pain, Chronic, Other (See Below) Other Musculoskeletal History: fractured fibula Feb 2017 Psychiatric History: Reports: Anxiety, Depression, Panic Attack Endocrine/Metabolic History: Reports: Obesity/BMI 30+ Dermatologic History: Reports: Other (See Below) Other Dermatologic History: NUMEROUS SCABS AND SCARS ON LIMBS - Infectious Disease History Infectious Disease History: Reports: None - Past Surgical History HEENT Surgical History: Reports: Oral Surgery Cardiovascular Surgical History: Reports: Carotid Stents Respiratory Surgical History: Reports: None GI Surgical History: Reports: EGD Endocrine Surgical History: Reports: None Musculoskeletal Surgical History: Reports: Arthroscopic Knee, Other (See Below) Other Musculoskeletal Surgeries/Procedures:: plate in the R ankle - Past Imaging History Past Imaging History: Reports: Xray Social & Family History - Family History Family Medical History: Noncontributory Cardiac: Reports: [place] - Tobacco Use Smoking Status *Q: Current Every Day Smoker Years of Tobacco use: 45 Packs/Tins Daily: 2 - Caffeine Use Caffeine Use: Reports: Coffee, Energy Drinks, Soda Other Caffeine Use: regular. daily energy drinks (1-2) - Recreational Drug Use Recreational Drug Type: Reports: Marijuana/Hashish - Living Situation & Occupation Living situation: Reports: with Significant Other Occupation: Unemployed ED ROS GENERAL - Review of Systems Review Of Systems: See Below Constitutional: Denies: Fever, Chills, Malaise, Weakness HEENT: Denies: Ear Pain, Throat Pain, Vision Change Respiratory: Denies: Shortness of Breath, Cough Cardiovascular: Denies: Chest Pain, Lightheadedness, Syncope GI/Abdominal: Denies: Abdominal Pain, Diarrhea, Vomiting : Reports: Pain (the pain from his SI joint radiates around front to his penis often) Musculoskeletal: Reports: Back Pain. Denies: Neck Pain, Shoulder Pain, Arm Pain Skin: Denies: Cyanosis, Jaundice, Mottled, Pallor, Diaphoresis Neurological: Denies: Confusion, Dizziness, Headache, Seizure, Syncope, Trouble Speaking Psychiatric: Denies: Agitation, Anxiety, Confusion ED EXAM,LOWER BACK PAIN/INJURY - Physical Exam Exam: See Below Exam Limited By: No Limitations General Appearance: Alert, WD/WN, No Apparent Distress Eye Exam: Bilateral Eye: EOMI, Normal Inspection, PERRL Ears: Normal External Exam, Hearing Grossly Normal Nose: Normal Inspection, No Blood Throat/Mouth: Normal Inspection, Normal Lips, Normal Voice, No Airway Compromise Head: Atraumatic, Normocephalic Neck: Normal Inspection, Full Range of Motion Respiratory/Chest: No Respiratory Distress, Lungs Clear, Normal Breath Sounds, No Accessory Muscle Use Cardiovascular: Regular Rate, Rhythm, No Murmur GI/Abdominal: Normal Bowel Sounds, Soft, Non-Tender, No Organomegaly, No Distention Back Exam: Other (tender to palpation of right SI region). No: CVA Tenderness ( L), CVA Tenderness (R), Vertebral Tenderness Extremities: Normal Inspection, Normal Range of Motion Neurological: Alert, Normal Mood/Affect, Normal Dorsiflexion, Normal Plantar Flexion, No Motor/Sensory Deficits, Oriented x 3 Psychiatric: Normal Affect, Normal Mood Skin Exam: Warm, Dry, Intact, Normal Color, No Rash Course - Vital Signs Last Recorded V/S: Last Vital Signs Temp 96.9 F 07/21/19 15:38 Pulse 72 07/21/19 15:38 Resp 18 07/21/19 15:38 BP 101/71 07/21/19 15:38 Pulse Ox 98 07/21/19 15:38 - Orders/Labs/Meds Meds: Medications Discontinued Medications Generic Name Dose Route Start Last Admin Trade Name Edq PRN Reason Stop Dose Admin Acetaminophen 1,000 mg 07/21/19 17:01 Tylenol Extra Strength PO 07/21/19 17:02 ONETIME ONE Ketorolac Tromethamine 30 mg 07/21/19 16:56 Toradol IVPUSH 07/21/19 16:57 ONETIME ONE - Re-Assessments/Exams Free Text/Narrative Re-Assessment/Exam: 07/21/19 17:10 I discussed this patient with Orquidea Adler CRNA who has seen him multiple times for chronic pain management and SI injections. She has recommended to him that he should go to a pain clinic that offers SI ablation therapy since he responds well (but too briefly) to the injections. She has also advised him to see urology for the penile pain to explore additional options. I discussed with the pharmacist what appropriate dosing of NSAIDS could be with his kidney function and Plavix. We feel that the Toradol today should be fine and he may be okay with regular Naproxen if monitored regularly for it, but decided to try just the regular Tylenol regimen until he sees his PCP next week where he can discuss the possibility of monitored chronic NSAID use. Patient agrees with this plan. Patient stable at discharge. Departure - Departure Time of Disposition: 17:05 Disposition: Home, Self-Care 01 Condition: Good Clinical Impression: Chronic right SI joint pain - Discharge Information Referrals: Vanessa Martinez MD [Primary Care Provider] - Additional Instructions: Drink 8 cups of water daily. This does help chronic back pain. Take Tylenol 1000 mg every 8 hours. Using it regularly provides more benefit than just occasionally as needed. Follow up with Dr. Mendez next as scheduled to discuss how this regimen is working and to consider SI ablation at a pain clinic as Orquidea has recommended. Also ask Dr. Mendez if adding Naproxen twice daily to the Tylenol could be considered with your Plavix and kidney function. Sepsis Event Note (ED) - Evaluation Sepsis Screening Result: No Definite Risk - Focused Exam Vital Signs: Vital Signs Temp Pulse Resp BP Pulse Ox 07/21/19 15:38 96.9 F 72 18 101/71 98
[2019-07-21] MEDS: Ketorolac 30 MG/ML SDV IVPUSH ONE ×2 (17:20→18:10)
== END 2019-07-21 17:30 | disposition home or self-care (01) ==
LOC: KA.ED 15:33
DX: M53.3 Sacrococcygeal disorders, not elsewhere classified (principal); G89.29 Other chronic pain; F17.210 Nicotine dependence, cigarettes, uncomplicated; E78.00 Pure hypercholesterolemia, unspecified; I10 Essential (primary) hypertension; I25.2 Old myocardial infarction; F41.9 Anxiety disorder, unspecified; F32.9 Major depressive disorder, single episode, unspecified; K21.9 Gastro-esophageal reflux disease without esophagitis; E66.9 Obesity, unspecified; Z68.31 Body mass index [BMI] 31.0-31.9, adult; Z88.5 Allergy status to narcotic agent; Z79.82 Long term (current) use of aspirin; Z79.02 Long term (current) use of antithrombotics/antiplatelets
CPT/HCPCS: 96374; 99283; 99283-25; A9270-GY; J1885

== ENCOUNTER 2019-10-24 17:30 | Emergency (ER) | payer MEDICARE, MEDICAID ==
[2019-10-24] MEDS ORDERED: Sodium Chloride 0.9% 10 ML Syringe FLUSH PRN (17:43)
[2019-10-24] MEDS ORDERED: Sodium Chloride 0.9% 1,000 ML IV ONE (17:44)
--- NOTE | 2019-10-24 17:55 | EDM.PDOC ---
ED HPI GENERAL MEDICAL PROBLEM - General Chief Complaint: General Stated Complaint: HYPOTENSION Time Seen by Provider: 10/24/19 17:30 Source of Information: Reports: Patient, EMS History Limitations: Reports: No Limitations - History of Present Illness INITIAL COMMENTS - FREE TEXT/NARRATIVE: This afternoon, return from doing errands and felt slightly lightheaded. Took his blood pressure with a home wrist monitor showing pressures being hypotensive in nature. These were repeated and did not significantly return to his normal baseline. With some associated lightheadedness 911 was summoned for transport for evaluation. Denies chest pain or shortness of breath. States he is in the process of scheduling his second post stenting visit as things have been going well, first visit was fine pandemic delayed second visit scheduling. States things been going well other than his chronic back pain. Onset: Today, Sudden Duration: Hour(s):, Resolved Prior to Arrival Quality: Reports: Other (None) Severity: Moderate (Time) Improves with: Reports: Rest Worsens with: Reports: None Context: Reports: Activity Lower Back Pain Score (Numeric/FACES): 10 - Related Data Allergies Allergy/AdvReac Type Severity Reaction Status Date / Time codeine Allergy Dizziness Verified 10/24/19 17:40 #NO NARCOTICS AdvReac Severe Other Uncoded 10/24/19 17:40 Home Meds: Home Meds buPROPion [buPROPion XL] 100 mg PO DAILY 08/08/14 [History] Aspirin 81 mg PO DAILY 01/17/18 [History] Nitroglycerin [Nitrostat] 0.4 mg SL ONETIME PRN 01/17/18 [History] busPIRone [Buspar] 5 mg PO TID PRN 01/17/18 [History] Clopidogrel [Plavix] 75 mg PO DAILY 02/12/19 [History] Metoprolol Succinate 25 mg PO DAILY 02/12/19 [History] Spironolactone [Aldactone] 12.5 mg PO DAILY 02/12/19 [History] atorvaSTATin [Lipitor] 80 mg PO DAILY 02/12/19 [History] lisinopriL [Zestril] 5 mg PO DAILY 02/12/19 [History] Escitalopram [Lexapro] 20 mg PO DAILY 07/21/19 [History] RABEprazole Sodium [Rabeprazole Sodium] 20 mg PO DAILY 07/21/19 [History] Past Medical History HEENT History: Reports: Impaired Vision Other HEENT History: wears glasses Cardiovascular History: Reports: High Cholesterol, Hypertension, NE, Stents Other Cardiovascular History: NE in 2006 with one stent placed, NE in 2010 with 2 stents placed. 2 stents placed 08 February 2019. Decreased ejection fraction at roughly 35% at this time Respiratory History: Reports: Sleep Apnea Other Respiratory History: CPAP USAGE Gastrointestinal History: Reports: GERD, Hiatal Hernia Other Gastrointestinal History: H. Pylori Musculoskeletal History: Reports: Back Pain, Chronic, Other (See Below) Other Musculoskeletal History: fractured fibula Feb 2017 Psychiatric History: Reports: Anxiety, Depression, Panic Attack Endocrine/Metabolic History: Reports: Obesity/BMI 30+ Dermatologic History: Reports: Other (See Below) Other Dermatologic History: NUMEROUS SCABS AND SCARS ON LIMBS - Infectious Disease History Infectious Disease History: Reports: Chicken Pox, Measles, Mumps - Past Surgical History HEENT Surgical History: Reports: Oral Surgery Cardiovascular Surgical History: Reports: Carotid Stents Respiratory Surgical History: Reports: None GI Surgical History: Reports: EGD Endocrine Surgical History: Reports: None Musculoskeletal Surgical History: Reports: Arthroscopic Knee, Other (See Below) Other Musculoskeletal Surgeries/Procedures:: plate in the R ankle - Past Imaging History Past Imaging History: Reports: Xray Social & Family History - Family History Family Medical History: Noncontributory Cardiac: Reports: NE - Tobacco Use Smoking Status *Q: Current Every Day Smoker Years of Tobacco use: 40 Packs/Tins Daily: 0.7 - Caffeine Use Caffeine Use: Reports: Coffee, Energy Drinks Other Caffeine Use: regular. daily energy drinks (1-2) - Recreational Drug Use Recreational Drug Use: Yes Recreational Drug Type: Reports: Marijuana/Hashish Recreational Drug Use Frequency: Weekly - Living Situation & Occupation Living situation: Reports: with Significant Other Occupation: Unemployed ED ROS GENERAL - Review of Systems Review Of Systems: See Below Constitutional: Reports: No Symptoms HEENT: Reports: No Symptoms Respiratory: Reports: No Symptoms. Denies: Shortness of Breath Cardiovascular: Reports: No Symptoms. Denies: Chest Pain Endocrine: Reports: No Symptoms GI/Abdominal: Reports: No Symptoms : Reports: No Symptoms Musculoskeletal: Reports: Back Pain (Chronic with intermittent flareups) Skin: Reports: No Symptoms Neurological: Reports: No Symptoms Psychiatric: Reports: No Symptoms Hematologic/Lymphatic: Reports: No Symptoms Immunologic: Reports: No Symptoms ED EXAM, GENERAL - Physical Exam Exam: See Below General Appearance: Alert, WD/WN, No Apparent Distress Ears: Normal External Exam, Normal Canal, Hearing Grossly Normal Nose: Normal Inspection, Normal Mucosa, No Blood Throat/Mouth: Normal Inspection, Normal Lips, Normal Oropharynx, Normal Voice, No Airway Compromise Head: Atraumatic, Normocephalic Neck: Normal Inspection, Supple, Non-Tender, Full Range of Motion Respiratory/Chest: No Respiratory Distress, Lungs Clear, Normal Breath Sounds, No Accessory Muscle Use, Chest Non-Tender Cardiovascular: Normal Peripheral Pulses, Regular Rate, Rhythm, No Edema, No Gallop, No JVD, No Murmur, No Rub GI/Abdominal: Normal Bowel Sounds, Soft, Non-Tender, No Organomegaly, No Distention (Male) Exam: Deferred Rectal (Males) Exam: Deferred Extremities: Normal Inspection, Normal Range of Motion, Non-Tender, No Pedal Edema, Normal Capillary Refill Neurological: Alert, Oriented, CN II-XII Intact, Normal Cognition, Normal Gait Psychiatric: Normal Affect, Normal Mood Skin Exam: Warm, Dry, Intact, Normal Color, No Rash Lymphatic: No Adenopathy EKG INTERPRETATION EKG Date: 10/24/19 Time: 17:59 [place]: Normal P-Wave: Present QRS: Normal ST-T: Normal QT: Normal Comparison: Change From Previous EKG EKG Interpretation Comments: Significant improvement from previous tracing Course - Vital Signs Last Recorded V/S: Last Vital Signs Temp 36.8 C 10/24/19 17:35 Pulse 69 10/24/19 19:25 Resp 14 10/24/19 19:25 BP 109/69 10/24/19 19:25 Pulse Ox 95 10/24/19 19:25 - Orders/Labs/Meds Orders: Active Orders 24 hr Category Date Time Status EKG Documentation Completion [RC] ASDIRECTED Care 10/24/19 17:44 Active Peripheral IV Care [RC] . DIRECTED Care 10/24/19 17:43 Active Sodium Chloride 0.9% [Saline Flush] Med 10/24/19 17:43 Active 10 ml FLUSH Q8HR PRN Peripheral IV Insertion Adult [OM.PC] Routine Oth 10/24/19 17:43 Ordered EKG 12 Lead [EK] Urgent Ther 10/24/19 17:43 Ordered Medication Orders Sodium Chloride (Saline Flush) 10 ml FLUSH Q8HR PRN PRN Reason: keep vein open Last Admin: 10/24/19 18:15 Dose: 10 ml Documented by: SELENE Labs: Laboratory Tests 10/24/19 10/24/19 Range/Units 18:35 18:35 WBC 10.12 H (5.00-10.00) 10^3/uL RBC 3.95 L (4.50-6.00) 10^6/uL Hgb 13.9 (13.0-17.0) g/dL Hct 41.8 (40.0-52.0) % MCV 105.8 H (82.0-92.0) fL MCH 35.2 H (27.0-31.0) pg MCHC 33.3 (32.0-36.0) g/dL RDW 12.4 (11.5-14.5) % Plt Count 139 L (150-400) 10^3/uL MPV 10.5 H (7.4-10.4) fL Immature Gran % (Auto) 0.2 (0.0-5.0) % Neut % (Auto) 76.1 H (50.0-70.0) % Lymph % (Auto) 11.3 L (20.0-40.0) % [place] % (Auto) 10.2 H (2.0-8.0) % Eos % (Auto) 1.8 (1.0-3.0) % Baso % (Auto) 0.4 (0.0-1.0) % Neut # (Auto) 7.71 H (2.50-7.00) 10^3/uL Lymph # (Auto) 1.14 (1.00-4.00) 10^3/uL [place] # (Auto) 1.03 H (0.10-0.80) 10^3/uL Eos # (Auto) 0.18 (0.10-0.30) 10^3/uL Baso # (Auto) 0.04 (0.00-0.10) 10^3/uL Immature Gran # (Auto) 0.02 (0.00-0.50) 10^3/uL Sodium 136 (136-145) mmol/L Potassium 4.7 (3.3-5.3) mmol/L Chloride 106 (98-115) mmol/L Carbon Dioxide 23.1 (21.0-32.0) mmol/L Anion Gap 11.6 (5-15) mmol/L BUN 23 (6-25) mg/dL Creatinine 1.50 H (0.51-1.17) mg/dL Est Cr Clr Drug Dosing 54.07 mL/min Estimated GFR (MDRD) 48 mL/min Glucose 96 (75 - 99) mg/dL Calcium 8.3 L (8.7-10.3) mg/dL Total Bilirubin 0.3 (0.2-1.0) mg/dL AST 21 (15-37) U/L ALT 34 (12-78) U/L Alkaline Phosphatase 58 (46-116) IU/L Creatine Kinase 95 (26-276) U/L CK-MB (CK-2) 1.40 (0.00-4.30) ng/mL Troponin I 0.07 (0.00-0.070) ng/mL Total Protein 6.3 L (6.4-8.2) g/dL Albumin 3.46 (3.00-4.80) g/dL Meds: Medications Generic Name Dose Route Start Last Admin Trade Name Freq PRN Reason Stop Dose Admin Sodium Chloride 10 ml 10/24/19 17:43 10/24/19 18:15 Saline Flush FLUSH 10 ml Q8HR PRN Administration keep vein open Discontinued Medications Generic Name Dose Route Start Last Admin Trade Name Freq PRN Reason Stop Dose Admin Sodium Chloride 1,000 mls @ 999 mls/hr 10/24/19 17:44 10/24/19 18:15 Normal Saline IV 10/24/19 18:44 999 mls/hr .BOLUS ONE Administration Departure - Departure Time of Disposition: 19:30 Disposition: Home, Self-Care 01 Condition: Good Clinical Impression: Lightheadedness, Hypotension - Discharge Information *PRESCRIPTION DRUG MONITORING PROGRAM REVIEWED*: Not Applicable *COPY OF PRESCRIPTION DRUG MONITORING REPORT IN PATIENT MAULIK: Not Applicable Instructions: Hypotension, [id number] Referrals: Vanessa Martinez MD [Primary Care Provider] - Gerry Espinal NP [Nurse Practitioner] - Forms: ED Department Discharge Sepsis Event Note (ED) - Evaluation Sepsis Screening Result: No Definite Risk - Focused Exam Vital Signs: Vital Signs Temp Pulse Resp BP Pulse Ox 10/24/19 19:25 69 14 109/69 95 10/24/19 18:15 59 L 17 126/65 97 10/24/19 18:00 57 L 11 L 126/75 97 10/24/19 17:35 36.8 C 60 12 117/62 99 - Problem List & Annotations (1) Lightheadedness SNOMED Code(s): 364484381 Code(s): R42 - DIZZINESS AND GIDDINESS Status: Acute Priority: Medium Current Visit: No (2) Hypotension SNOMED Code(s): 88221903 Code(s): I95.9 - HYPOTENSION, UNSPECIFIED Status: Acute Priority: Medium Current Visit: No Qualifiers: Qualified Code(s): I95.89 - Other hypotension; E86.1 - Hypovolemia - Problem List Review Problem List Initiated/Reviewed/Updated: Yes - My Orders Last 24 Hours: My Active Orders 10/24/19 17:43 Peripheral IV Care [RC] . DIRECTED Sodium Chloride 0.9% [Saline Flush] 10 ml FLUSH Q8HR PRN Peripheral IV Insertion Adult [OM.PC] Routine EKG 12 Lead [EK] Urgent 10/24/19 17:44 EKG Documentation Completion [RC] ASDIRECTED - Assessment/Plan Last 24 Hours: My Active Orders 10/24/19 17:43 Peripheral IV Care [RC] . DIRECTED Sodium Chloride 0.9% [Saline Flush] 10 ml FLUSH Q8HR PRN Peripheral IV Insertion Adult [OM.PC] Routine EKG 12 Lead [EK] Urgent 10/24/19 17:44 EKG Documentation Completion [RC] ASDIRECTED Plan: Increase your water intake. The low blood pressure is very likely related to being slightly low on fluid level. Continue all your medications as directed. You can help monitor your fluid level by looking at the color of your urine each time you void. Hopefully by mid to later in the day your urine will be as clear as a glass of water you are drinking. Contact your clinic for follow-up as needed.
[2019-10-24 19:09] LABS: ANION GAP 11.6 mmol/L (5-15)
[2019-10-24 19:26] VITALS: BP 109/69; PULSE 69
== END 2019-10-24 19:45 | disposition home or self-care (01) ==
LOC: KA.ED 17:30
DX: I95.9 Hypotension, unspecified (principal); I10 Essential (primary) hypertension; E78.00 Pure hypercholesterolemia, unspecified; I25.2 Old myocardial infarction; K21.9 Gastro-esophageal reflux disease without esophagitis; F41.9 Anxiety disorder, unspecified; F32.9 Major depressive disorder, single episode, unspecified; E66.9 Obesity, unspecified; F17.210 Nicotine dependence, cigarettes, uncomplicated; Z88.5 Allergy status to narcotic agent; Z95.5 Presence of coronary angioplasty implant and graft; Z79.82 Long term (current) use of aspirin; Z79.899 Other long term (current) drug therapy
CPT/HCPCS: 80053; 82550; 82553; 84484; 85025; 93005; 96360; 99284; 99285-25; J7030

== ENCOUNTER 2020-03-14 06:57 | Day surgery (SDC) | payer MEDICARE, MEDICAID ==
[2020-03-14] MEDS ORDERED: Propofol 200 MG/20 ML SDV IV ONE (06:58)
[2020-03-14] MEDS ORDERED: Lidocaine 2% 5 ML SDV INJECT ONE (06:58)
[2020-03-14] MEDS ORDERED: Midazolam 1 MG/ML 2 ML SDV IV ONE (06:58)
[2020-03-14] MEDS ORDERED: Lactated Ringers 1,000 ML IV SCH (07:00)
[2020-03-14] MEDS ORDERED: Sodium Chloride 0.9% 10 ML Syringe FLUSH PRN (07:00)
[2020-03-14] MEDS ORDERED: EPINEPHrine 1:10,000 1 MG/10 ML Syringe ONE (07:47)
[2020-03-14] MEDS ORDERED: Lidocaine 2% 5 ML SDV ONE (08:00)
[2020-03-14] MEDS ORDERED: Propofol 200 MG/20 ML SDV ONE (08:00)
[2020-03-14] MEDS ORDERED: Midazolam 1 MG/ML 2 ML SDV ONE (08:00)
--- NOTE | 2020-03-14 08:43 | PCM.OPNOTE ---
- General Post-Op/Procedure Note Date of Surgery/Procedure: 03/14/20 Operative Procedure(s): Upper GI endoscopy. Findings: Moderate severe antral gastritis and superficial antral gastric ulcerations x2. Pre Op Diagnosis: Stent epigastric and upper abdominal discomfort not relieved by PPI. Post-Op Diagnosis: Patient has superficial antral gastric ulcerations x2 and mild to moderate antral gastritis. Anesthesia Technique: MAC Primary Surgeon: Bulmaro Xie Complications: None Condition: Good Free Text/Narrative:: INFORMED CONSENT: Patient is here today for elective upper GI endoscopy. All aspects of this procedure have been discussed with the patient. All possible complications also, including possibility of perforation, infection, pain, bleeding, numbness of the throat, swallowing difficulty and unknown complications. In the event of perforation the patient may need surgical exploration to repair the defect. The patient understands fully well. Patient did not have any further questions for me at the end of my interview. The patient wishes for me to proceed. INSTRUMENT USED: Video gastroscope ANESTHESIA: [Monitored anesthesia care] ASA CLASSIFICATION: [2] PROCEDURE PERFORMED: [Upper gastrointestinal endoscopy] PHARYNX: Normal. ESOPHAGUS: Normal. Proximal: Normal. Middle: Normal. Lower: Normal. GE Junction: Approximate 3 cm size hiatal hernia without significant inflammation. STOMACH: Normal. Cardia: Normal. Fundus: Normal. Lesser Curvature: Normal. Greater Curvature: Normal. Antrum: Mild to moderate antral gastritis noted. Also noticed with 2 superficial ulcers. Pylorus: Normal. DUODENUM: Normal. First Part: Normal. Second Part: Normal. Third Part: Normal. RETROFLEXION: Normal. BIOPSY: None. TOLERANCE: Excellent. COMPLICATIONS: None.
[2020-03-14 10:08] VITALS: BP 156/76; PULSE 66
== END 2020-03-14 10:00 | disposition home or self-care (01) ==
LOC: KA.SDS 06:57
PROVIDERS: ATTEND Family Medicine
DX: K29.70 Gastritis, unspecified, without bleeding (principal); K25.9 Gastric ulcer, unspecified as acute or chronic, without hemorrhage or perforation; K44.9 Diaphragmatic hernia without obstruction or gangrene; M62.838 Other muscle spasm; I73.9 Peripheral vascular disease, unspecified; E78.49 Other hyperlipidemia; I10 Essential (primary) hypertension; I25.10 Atherosclerotic heart disease of native coronary artery without angina pectoris; G47.33 Obstructive sleep apnea (adult) (pediatric); K21.9 Gastro-esophageal reflux disease without esophagitis; E66.9 Obesity, unspecified; F17.200 Nicotine dependence, unspecified, uncomplicated; Z79.82 Long term (current) use of aspirin; Z79.899 Other long term (current) drug therapy; Z88.5 Allergy status to narcotic agent; Z68.32 Body mass index [BMI] 32.0-32.9, adult
CPT/HCPCS: 00731; J2001; J2250; J2704; J7120

== ENCOUNTER 2020-03-26 18:15 | Emergency (ER) | payer MEDICARE, MEDICAID ==
--- NOTE | 2020-03-26 18:33 | EDM.PDOC ---
ED HPI GENERAL MEDICAL PROBLEM - General Stated Complaint: faint, lightheaded Time Seen by Provider: 03/26/20 18:15 Source of Information: Reports: Patient, EMS History Limitations: Reports: No Limitations - History of Present Illness INITIAL COMMENTS - FREE TEXT/NARRATIVE: Patient presents via ambulance following episode of low HR and low BP. Patient is feeling fine now and says it started about 40 minutes ago while he was sitting at his computer watching a movie. He felt tightness/pain in the back on right side and felt like he might pass out. He moved to the couch. EMS tells me that HR was 38 and BP 60/40 when they arrived but quickly improved without intervention by the time they moved him to the door. They have continued to improve and on arrival to ER, HR and BP are close to normal. He had an KS 14 months ago and has Nitro but didn't use it today. - Related Data Allergies Allergy/AdvReac Type Severity Reaction Status Date / Time codeine Allergy Dizziness Verified 03/26/20 18:39 #NO NARCOTICS AdvReac Severe Other Uncoded 03/26/20 18:39 Home Meds: Home Meds Nitroglycerin [Nitrostat] 0.4 mg SL ASDIRECTED PRN 01/17/18 [History] Spironolactone [Aldactone] 12.5 mg PO DAILY 02/12/19 [History] atorvaSTATin [Lipitor] 80 mg PO DAILY 02/12/19 [History] Acetaminophen [Pain Relief] 1,000 mg PO Q6H PRN 03/13/20 [History] Lansoprazole [Prevacid] 30 mg PO DAILY 03/13/20 [History] Metoprolol Succinate 200 mg PO DAILY 03/13/20 [History] lisinopriL [Lisinopril] 10 mg PO DAILY 03/13/20 [History] tiZANidine [Zanaflex] 2 - 4 mg PO DAILY PRN 03/13/20 [History] Famotidine/Ca Carb/Mag Hydrox [Acid Laboratory Coordinator Complete Tab Chew] 1 tab PO BID 03/26/20 [History] PARoxetine [Paxil] 40 mg PO DAILY 03/26/20 [History] tiZANidine HCl [Tizanidine HCl] 4 mg PO BEDTIME 03/26/20 [History] Past Medical History HEENT History: Reports: Impaired Vision Other HEENT History: wears glasses Cardiovascular History: Reports: High Cholesterol, Hypertension, [place], Stents Other Cardiovascular History: KS in 2006 with one stent placed, KS in 2010 with 2 stents placed. 2 stents placed 08 February 2019. Decreased ejection fraction at roughly 35% at this time Respiratory History: Reports: Sleep Apnea Other Respiratory History: CPAP USAGE Gastrointestinal History: Reports: GERD, Hiatal Hernia Other Gastrointestinal History: H. Pylori Musculoskeletal History: Reports: Back Pain, Chronic, Other (See Below) Other Musculoskeletal History: fractured fibula Feb 2017 Psychiatric History: Reports: Anxiety, Depression, Panic Attack Endocrine/Metabolic History: Reports: Obesity/BMI 30+ Dermatologic History: Reports: Other (See Below) Other Dermatologic History: NUMEROUS SCABS AND SCARS ON LIMBS - Infectious Disease History Infectious Disease History: Reports: Chicken Pox, Measles, Mumps - Past Surgical History HEENT Surgical History: Reports: Oral Surgery Cardiovascular Surgical History: Reports: Coronary Artery Stent Respiratory Surgical History: Reports: None GI Surgical History: Reports: EGD Endocrine Surgical History: Reports: None Musculoskeletal Surgical History: Reports: Arthroscopic Knee, Other (See Below) Other Musculoskeletal Surgeries/Procedures:: plate in the R ankle - Past Imaging History Past Imaging History: Reports: Xray Social & Family History - Family History Family Medical History: No Pertinent Family History Cardiac: Reports: KS - Caffeine Use Caffeine Use: Reports: Coffee Other Caffeine Use: regular--12 cups. daily energy drinks (1-2 Monsters) - Living Situation & Occupation Living situation: Reports: with Significant Other Occupation: Unemployed ED ROS GENERAL - Review of Systems Review Of Systems: See Below Constitutional: Denies: Fever, Chills, Malaise, Weakness HEENT: Denies: Ear Pain, Throat Pain, Vision Change Respiratory: Denies: Shortness of Breath, Cough Cardiovascular: Reports: Blood Pressure Problem (takes metoprolol). Denies: Chest Pain, Lightheadedness, Syncope GI/Abdominal: Reports: Nausea (gone now). Denies: Abdominal Pain, Vomiting : Reports: Dysuria (burning that his chronic and always tests negative for infection) Musculoskeletal: Denies: Neck Pain, Shoulder Pain, Arm Pain, Back Pain, Hand Pain Skin: Denies: Cyanosis, Jaundice, Mottled, Pallor, Diaphoresis Neurological: Reports: Headache. Denies: Confusion, Dizziness, Seizure, Syncope, Trouble Speaking, Difficulty Walking Psychiatric: Denies: Agitation, Anxiety, Confusion ED EXAM, GENERAL - Physical Exam Exam: See Below Exam Limited By: No Limitations General Appearance: Alert, WD/WN, No Apparent Distress Eye Exam: Bilateral Eye: EOMI, Normal Inspection, PERRL Ears: Normal External Exam, Hearing Grossly Normal Nose: Normal Inspection, No Blood Throat/Mouth: Normal Inspection, Normal Lips, Normal Voice, No Airway Compromise Head: Atraumatic, Normocephalic Neck: Normal Inspection, Full Range of Motion Respiratory/Chest: No Respiratory Distress, Lungs Clear, Normal Breath Sounds, No Accessory Muscle Use Cardiovascular: Normal Peripheral Pulses, Regular Rate, Rhythm, No Edema, No Gallop, No JVD, No Murmur Peripheral Pulses: 2+: Radial (L), Radial (R), Posterior Tibial (L), Posterior Tibial (R) GI/Abdominal: Normal Bowel Sounds, Soft, Non-Tender, No Organomegaly, No Distention Back Exam: Normal Inspection, Full Range of Motion Extremities: Normal Inspection, No Pedal Edema Neurological: Alert, Oriented, Normal Cognition, No Motor/Sensory Deficits Psychiatric: Normal Affect, Normal Mood Skin Exam: Warm, Dry, Intact, Normal Color, No Rash Course - Vital Signs Last Recorded V/S: Last Vital Signs Temp 96.6 F L 03/26/20 18:15 Pulse 67 03/26/20 20:02 Resp 18 03/26/20 20:02 BP 123/65 03/26/20 20:02 Pulse Ox 98 03/26/20 20:02 - Orders/Labs/Meds Orders: Active Orders 24 hr Category Date Time Status EKG 12 Lead [EK] Stat Ther 03/26/20 18:40 Ordered Labs: Laboratory Tests 03/26/20 03/26/20 Range/Units 18:35 18:35 WBC 9.85 (5.00-10.00) 10^3/uL RBC 4.29 L (4.50-6.00) 10^6/uL Hgb 14.7 (13.0-17.0) g/dL Hct 43.8 (40.0-52.0) % MCV 102.1 H D (82.0-92.0) fL MCH 34.3 H (27.0-31.0) pg MCHC 33.6 (32.0-36.0) g/dL RDW 13.1 (11.5-14.5) % Plt Count 147 L (150-400) 10^3/uL MPV 10.2 (7.4-10.4) fL Immature Gran % (Auto) 0.2 (0.0-5.0) % Neut % (Auto) 72.5 H (50.0-70.0) % Lymph % (Auto) 17.7 L (20.0-40.0) % [place] % (Auto) 7.0 (2.0-8.0) % Eos % (Auto) 2.1 (1.0-3.0) % Baso % (Auto) 0.5 (0.0-1.0) % Neut # (Auto) 7.14 H (2.50-7.00) 10^3/uL Lymph # (Auto) 1.74 (1.00-4.00) 10^3/uL [place] # (Auto) 0.69 (0.10-0.80) 10^3/uL Eos # (Auto) 0.21 (0.10-0.30) 10^3/uL Baso # (Auto) 0.05 (0.00-0.10) 10^3/uL Immature Gran # (Auto) 0.02 (0.00-0.50) 10^3/uL Sodium 142 (136-145) mmol/L Potassium 5.1 (3.5-5.1) mmol/L Chloride 108 H (98-107) mmol/L Carbon Dioxide 25.9 (21.0-32.0) mmol/L Anion Gap 13.2 (5-15) mmol/L BUN 23 H (7-18) mg/dL Creatinine 1.69 H (0.51-1.17) mg/dL Est Cr Clr Drug Dosing 51.02 mL/min Estimated GFR (MDRD) 42 mL/min Glucose 121 (70-140) mg/dL Calcium 8.7 (8.7-10.3) mg/dL Troponin I < 0.017 (0.000-0.056) ng/mL Meds: Medications Discontinued Medications Generic Name Dose Route Start Last Admin Trade Name Freq PRN Reason Stop Dose Admin Acetaminophen 1,000 mg 03/26/20 19:25 03/26/20 19:30 Tylenol Extra Strength PO 03/26/20 19:26 1,000 mg ONETIME ONE Administration Sodium Chloride 1,000 mls @ 250 mls/hr 03/26/20 18:45 03/26/20 18:36 Normal Saline IV 250 mls/hr ASDIRECTED [place] Administration - Re-Assessments/Exams Free Text/Narrative Re-Assessment/Exam: 03/26/20 19:24 Labs okay. CXR clear. EKG okay, HR 58. Patient has been feeling well except for headache since arrival in ER. We have a small IV in and are giving fluids slowly. EMS couldn't start one before arrival. Discussed findings with patient. He feels like going home. We will get at least 500 cc of NS and water po before discharge. He is stable. Departure - Departure Time of Disposition: 20:05 Disposition: Home, Self-Care 01 Condition: Good Clinical Impression: Dehydration, Bradycardia Hypotension Qualifiers: Qualified Code(s): I95.89 - Other hypotension Instructions: Hypotension, [id number], Dehydration, Adult Referrals: Gerry Espinal, TRUCK DRIVER SUPERVISOR [Primary Care Provider] - Forms: ED Department Discharge Additional Instructions: Drink 6-8 cups of water daily. Continue to reduce your caffeine intake. Great job in stopping alcohol use. Continue that too. Follow up in 1-3 days with your PCP for recheck, or sooner if any problems. Return to ER if needed. Sepsis Event Note (ED) - Focused Exam Vital Signs: Vital Signs Temp Pulse Resp BP Pulse Ox 03/26/20 20:02 67 18 123/65 98 03/26/20 19:35 62 18 113/66 97 03/26/20 19:15 63 18 106/52 L 98 03/26/20 19:00 63 20 96/39 L 98 03/26/20 18:45 60 16 116/39 L 97 03/26/20 18:30 61 19 94/53 L 97 03/26/20 18:15 96.6 F L 61 18 106/60 98 - My Orders Last 24 Hours: My Active Orders 03/26/20 18:40 EKG 12 Lead [EK] Stat - Assessment/Plan Last 24 Hours: My Active Orders 03/26/20 18:40 EKG 12 Lead [EK] Stat
[2020-03-26] MEDS: Sodium Chloride 0.9% 1,000 ML IV SCH (18:36)
[2020-03-26 19:04] LABS: ANION GAP 13.2 mmol/L (5-15); CHLORIDE,CL 108 mmol/L (98-107); SODIUM,NA 142 mmol/L (136-145)
--- NOTE | 2020-03-26 19:18 | CR ---
[id number] RAD/RAD Chest PA or AP 1V EXAM: SINGLE VIEW CHEST. INDICATION: HYPOTENSION BRADYCARDIA COMPARISON: CORRELATION IS MADE WITH FEBRUARY 08, 2019 FINDINGS: The lungs are clear The cardiomediastinal contour is stable IMPRESSION: NO ACUTE PROCESS Alejandro Wild MD 03/26/20 [id number] Thank you for allowing us to participate in the care of your patient.
[2020-03-26] MEDS: Acetaminophen 500 MG Tab PO ONE (19:30)
[2020-03-26 20:03] VITALS: BP 123/65; PULSE 67
== END 2020-03-26 20:20 | disposition home or self-care (01) ==
LOC: KA.ED 18:15
DX: I95.89 Other hypotension (principal); E86.0 Dehydration; R00.1 Bradycardia, unspecified; E78.00 Pure hypercholesterolemia, unspecified; I10 Essential (primary) hypertension; I25.2 Old myocardial infarction; K21.9 Gastro-esophageal reflux disease without esophagitis; E66.9 Obesity, unspecified; Z68.31 Body mass index [BMI] 31.0-31.9, adult; Z88.5 Allergy status to narcotic agent; Z79.899 Other long term (current) drug therapy
CPT/HCPCS: 36415; 71045; 80048; 84484; 85025; 93005; 99284; 99285-25; A9270-GY; J7030

== ENCOUNTER 2021-08-05 06:57 | Day surgery (SDC) | payer MEDICARE, MEDICAID ==
[2021-08-05] MEDS ORDERED: Sodium Chloride 0.9% 10 ML Syringe FLUSH PRN (07:00)
[2021-08-05] MEDS: Lactated Ringers 1,000 ML IV SCH (07:22)
[2021-08-05] MEDS ORDERED: Propofol 200 MG/20 ML SDV ONE (07:30)
[2021-08-05] MEDS ORDERED: Ketamine 200 MG/20 ML MDV ONE (07:30)
[2021-08-05] MEDS ORDERED: Glycopyrrolate 0.2 MG/ML SDV ONE (07:30)
[2021-08-05] MEDS ORDERED: Midazolam 1 MG/ML 2 ML SDV ONE (07:30)
[2021-08-05] MEDS ORDERED: Lidocaine 2% 5 ML SDV ONE (07:31)
[2021-08-05] MEDS ORDERED: EPINEPHrine 1:10,000 1 MG/10 ML Syringe ONE (08:25)
[2021-08-05] MEDS: EPINEPHrine 1:10,000 1 MG/10 ML Syringe ONE (08:25)
[2021-08-05 09:46] VITALS: BP 149/65; PULSE 64
== END 2021-08-05 10:11 | disposition home or self-care (01) ==
LOC: KA.SDS 06:57
PROVIDERS: ATTEND Family Medicine
DX: K31.89 Other diseases of stomach and duodenum (principal); K29.50 Unspecified chronic gastritis without bleeding; K44.9 Diaphragmatic hernia without obstruction or gangrene; B96.81 Helicobacter pylori [H. pylori] as the cause of diseases classified elsewhere; K21.00 Gastro-esophageal reflux disease with esophagitis, without bleeding; I25.10 Atherosclerotic heart disease of native coronary artery without angina pectoris; I12.9 Hypertensive chronic kidney disease with stage 1 through stage 4 chronic kidney disease, or unspecified chronic kidney disease; I73.9 Peripheral vascular disease, unspecified; E78.2 Mixed hyperlipidemia; I38 Endocarditis, valve unspecified; F17.210 Nicotine dependence, cigarettes, uncomplicated; I25.2 Old myocardial infarction; E66.9 Obesity, unspecified; N18.31 Chronic kidney disease, stage 3a; Z95.5 Presence of coronary angioplasty implant and graft; G47.33 Obstructive sleep apnea (adult) (pediatric); Z79.899 Other long term (current) drug therapy; Z79.82 Long term (current) use of aspirin; Z87.11 Personal history of peptic ulcer disease
CPT/HCPCS: 00731; J0171; J2250; J2704; J3490; J7120

== ENCOUNTER 2021-10-07 07:41 | Day surgery (SDC) | payer MEDICARE, MEDICAID ==
[2021-10-07] MEDS ORDERED: Glycopyrrolate 0.2 MG/ML SDV IVPUSH ONE (07:42)
[2021-10-07] MEDS ORDERED: Sodium Chloride 0.9% 10 ML Syringe FLUSH PRN (08:00)
[2021-10-07] MEDS: Lactated Ringers 1,000 ML IV SCH (08:18)
[2021-10-07] MEDS: Albuterol/Ipratropium 3.0-0.5 MG/3 ML Neb Soln NEB ONE (08:31)
[2021-10-07] MEDS ORDERED: Midazolam 1 MG/ML 2 ML SDV ONE (08:32)
[2021-10-07] MEDS ORDERED: Propofol 200 MG/20 ML SDV ONE (08:32)
[2021-10-07 12:03] VITALS: BP 143/65; PULSE 74
== END 2021-10-07 10:00 | disposition home or self-care (01) ==
LOC: KA.SDS 07:41
PROVIDERS: ATTEND Family Medicine
DX: K44.9 Diaphragmatic hernia without obstruction or gangrene (principal); K21.9 Gastro-esophageal reflux disease without esophagitis; K29.70 Gastritis, unspecified, without bleeding; G47.33 Obstructive sleep apnea (adult) (pediatric); F17.210 Nicotine dependence, cigarettes, uncomplicated; I25.10 Atherosclerotic heart disease of native coronary artery without angina pectoris; I73.9 Peripheral vascular disease, unspecified; E87.2 Acidosis; N18.31 Chronic kidney disease, stage 3a; I12.9 Hypertensive chronic kidney disease with stage 1 through stage 4 chronic kidney disease, or unspecified chronic kidney disease; E66.9 Obesity, unspecified; F33.1 Major depressive disorder, recurrent, moderate; G47.00 Insomnia, unspecified; I25.2 Old myocardial infarction; F41.9 Anxiety disorder, unspecified; Z98.890 Other specified postprocedural states; Z79.899 Other long term (current) drug therapy; Z88.5 Allergy status to narcotic agent; Z68.31 Body mass index [BMI] 31.0-31.9, adult; Z20.822 Contact with and (suspected) exposure to COVID-19
CPT/HCPCS: 00731; J2250; J2704; J3490; J7120; J7620-GY

== ENCOUNTER 2022-12-20 20:32 | Emergency (ER) | payer MEDICARE ==
[2022-12-20] MEDS ORDERED: Sodium Chloride 0.9% 10 ML Syringe FLUSH PRN (20:41)
[2022-12-20] MEDS ORDERED: Sodium Chloride 0.9% 1,000 ML IV ONE (20:43)
[2022-12-20 20:58] LABS: BASOPHILS ABSOLUTE AUTO 0.04 10^3/uL (0.00-0.10); BASOPHILS PERCENT AUTO 0.6 % (0.0-1.0); EOSINOPHILS ABSOLUTE AUTO 0.12 10^3/uL (0.10-0.30); EOSINOPHILS PERCENT AUTO 1.7 % (1.0-3.0); HEMATOCRIT 40.6 % (40.0-52.0); HEMOGLOBIN 13.6 g/dL (13.0-17.0); IMMATURE GRAN ABSOLUTE AUTO 0.01 10^3/uL (0.00-0.50); IMMATURE GRAN PERCENT AUTO 0.1 % (0.0-5.0); LYMPHOCYTES ABSOLUTE AUTO 1.41 10^3/uL (1.00-4.00); MEAN CORPUSCULAR HEMOGLOBIN 34.3 pg (27.0-31.0); MEAN CORPUSCULAR HGB CONC 33.5 g/dL (32.0-36.0); MEAN CORPUSCULAR VOLUME 102.3 fL (82.0-92.0); MEAN PLATELET VOLUME 9.6 fL (7.4-10.4); MONOCYTES ABSOLUTE AUTO 0.51 10^3/uL (0.10-0.80); MONOCYTES PERCENT AUTO 7.2 % (2.0-8.0); NEUTROPHILS ABSOLUTE AUTO 4.96 10^3/uL (2.50-7.00); NEUTROPHILS PERCENT AUTO 70.4 % (50.0-70.0); PLATELET COUNT,PLT 217 10^3/uL (150-400); RED BLOOD CELL COUNT 3.97 10^6/uL (4.50-6.00); RED CELL DISTRIBUTION WIDTH 12.3 % (11.5-14.5); WHITE BLOOD CELL COUNT,WBC 7.05 10^3/uL (5.00-10.00)
[2022-12-20 21:19] LABS: ALANINE AMINOTRANSFERASE,ALT 22 U/L (14-63); ALBUMIN 3.15 g/dL (3.40-5.00); ALKALINE PHOSPHATASE 69 U/L (46-116); ANION GAP 14.3 mmol/L (5-15); ASPARTATE AMNIOTRANSFERASE,AST 20 U/L (15-37); BILIRUBIN TOTAL 0.4 mg/dL (0.2-1.0); BLOOD UREA NITROGEN,BUN 22 mg/dL (7-18); CALCIUM 8.8 mg/dL (8.7-10.3); CARBON DIOXIDE,CO2 24.7 mmol/L (21.0-32.0); CHLORIDE,CL 102 mmol/L (98-107); ESTIMATED GFR 56 mL/min (>=60); GLUCOSE RANDOM 141 mg/dL (70-140); PROTEIN TOTAL,TP 6.6 g/dL (6.4-8.2); SODIUM,NA 137 mmol/L (136-145)
[2022-12-21 02:46] VITALS: BP 117/61; PULSE 84
== END 2022-12-20 22:07 | disposition home or self-care (01) ==
LOC: SUPCPDRO 20:32 → KA.ED 20:32
DX: I95.1 Orthostatic hypotension (principal); I25.10 Atherosclerotic heart disease of native coronary artery without angina pectoris; E78.00 Pure hypercholesterolemia, unspecified; I25.2 Old myocardial infarction; K21.9 Gastro-esophageal reflux disease without esophagitis; I12.9 Hypertensive chronic kidney disease with stage 1 through stage 4 chronic kidney disease, or unspecified chronic kidney disease; N18.9 Chronic kidney disease, unspecified; E66.9 Obesity, unspecified; Z95.5 Presence of coronary angioplasty implant and graft; Z79.82 Long term (current) use of aspirin; Z79.899 Other long term (current) drug therapy; Z88.5 Allergy status to narcotic agent
CPT/HCPCS: 71045; 80053; 84484; 85025; 93005; 93010; 96360; 99284; 99285-25; J3490; J7030

== ENCOUNTER 2024-04-05 03:35 | Emergency (ER) | payer MEDICARE ==
[2024-04-05] MEDS: Sodium Chloride 0.9% 10 ML Syringe FLUSH PRN (03:44)
[2024-04-05] MEDS: Sodium Chloride 0.9% 1,000 ML IV ONE (03:50)
[2024-04-05 03:51] LABS: BASOPHILS ABSOLUTE AUTO 0.04 10^3/uL (0.00-0.10); BASOPHILS PERCENT AUTO 0.4 % (0.0-1.0); EOSINOPHILS ABSOLUTE AUTO 0.38 10^3/uL (0.10-0.30); EOSINOPHILS PERCENT AUTO 3.7 % (1.0-3.0); HEMATOCRIT 44.9 % (40.0-52.0); HEMOGLOBIN 15.1 g/dL (13.0-17.0); IMMATURE GRAN ABSOLUTE AUTO 0.02 10^3/uL (0.00-0.04); IMMATURE GRAN PERCENT AUTO 0.2 % (0.0-0.4); LYMPHOCYTES ABSOLUTE AUTO 1.95 10^3/uL (1.00-4.00); LYMPHOCYTES PERCENT AUTO 19.1 % (20.0-40.0); MEAN CORPUSCULAR HEMOGLOBIN 34.5 pg (27.0-31.0); MEAN CORPUSCULAR HGB CONC 33.6 g/dL (32.0-36.0); MEAN CORPUSCULAR VOLUME 102.5 fL (82.0-92.0); MEAN PLATELET VOLUME 11.6 fL (7.4-10.4); MONOCYTES ABSOLUTE AUTO 0.72 10^3/uL (0.10-0.80); MONOCYTES PERCENT AUTO 7.1 % (2.0-8.0); NEUTROPHILS ABSOLUTE AUTO 7.08 10^3/uL (2.50-7.00); NEUTROPHILS PERCENT AUTO 69.5 % (50.0-70.0); PLATELET COUNT,PLT 128 10^3/uL (150-400); RED BLOOD CELL COUNT 4.38 10^6/uL (4.50-6.00); RED CELL DISTRIBUTION WIDTH 12.1 % (11.5-14.5); WHITE BLOOD CELL COUNT,WBC 10.19 10^3/uL (5.00-10.00)
[2024-04-05 04:09] LABS: ALANINE AMINOTRANSFERASE,ALT 25 U/L (14-63); ALBUMIN 3.11 g/dL (3.40-5.00); ALKALINE PHOSPHATASE 85 U/L (46-116); ANION GAP 12.6 mmol/L (5-15); ASPARTATE AMNIOTRANSFERASE,AST 38 U/L (15-37); BILIRUBIN TOTAL 0.4 mg/dL (0.2-1.0); BLOOD UREA NITROGEN,BUN 27 mg/dL (7-18); CALCIUM 8.7 mg/dL (8.7-10.3); CARBON DIOXIDE,CO2 25.5 mmol/L (21.0-32.0); CHLORIDE,CL 106 mmol/L (98-107); CREATININE 1.95 mg/dL (0.51-1.17); GLUCOSE RANDOM 118 mg/dL (70-140); SODIUM,NA 139 mmol/L (136-145)
[2024-04-05 04:10] LABS: ESTIMATED GFR 38 mL/min (>=60); POTASSIUM,K 5.1 mmol/L (3.5-5.1)
[2024-04-05 07:47] VITALS: BP 120/67; PULSE 64
== END 2024-04-05 05:10 | disposition home or self-care (01) ==
LOC: KA.ED 03:35
DX: I95.2 Hypotension due to drugs (principal); R55 Syncope and collapse; I12.9 Hypertensive chronic kidney disease with stage 1 through stage 4 chronic kidney disease, or unspecified chronic kidney disease; N18.9 Chronic kidney disease, unspecified; I25.10 Atherosclerotic heart disease of native coronary artery without angina pectoris; I25.2 Old myocardial infarction; E78.00 Pure hypercholesterolemia, unspecified; K21.9 Gastro-esophageal reflux disease without esophagitis; E66.9 Obesity, unspecified; Z68.29 Body mass index [BMI] 29.0-29.9, adult; Z95.5 Presence of coronary angioplasty implant and graft; Z88.5 Allergy status to narcotic agent; Z79.82 Long term (current) use of aspirin; Z79.51 Long term (current) use of inhaled steroids; Z79.899 Other long term (current) drug therapy
CPT/HCPCS: 36415; 71045; 80053; 83605; 84484; 85025; 96360; 99285-25; J7030

== ENCOUNTER 2024-09-07 13:22 | Emergency (ER) | payer MEDICARE, MEDICAID ==
[2024-09-07] MEDS ORDERED: Sodium Chloride 0.9% 10 ML Syringe FLUSH PRN (13:36)
[2024-09-07 13:47] LABS: BASOPHILS ABSOLUTE AUTO 0.03 10^3/uL (0.00-0.10); BASOPHILS PERCENT AUTO 0.3 % (0.0-1.0); EOSINOPHILS ABSOLUTE AUTO 0.11 10^3/uL (0.10-0.30); EOSINOPHILS PERCENT AUTO 1.0 % (1.0-3.0); IMMATURE GRAN ABSOLUTE AUTO 0.02 10^3/uL (0.00-0.04); IMMATURE GRAN PERCENT AUTO 0.2 % (0.0-0.4); LYMPHOCYTES ABSOLUTE AUTO 1.33 10^3/uL (1.00-4.00); LYMPHOCYTES PERCENT AUTO 12.2 % (20.0-40.0); MEAN PLATELET VOLUME 11.0 fL (7.4-10.4); MONOCYTES ABSOLUTE AUTO 0.77 10^3/uL (0.10-0.80); MONOCYTES PERCENT AUTO 7.0 % (2.0-8.0); NEUTROPHILS ABSOLUTE AUTO 8.68 10^3/uL (2.50-7.00); NEUTROPHILS PERCENT AUTO 79.3 % (50.0-70.0); PLATELET COUNT,PLT 107 10^3/uL (150-400); RED BLOOD CELL COUNT 4.20 10^6/uL (4.50-6.00); RED CELL DISTRIBUTION WIDTH 12.5 % (11.5-14.5); WHITE BLOOD CELL COUNT,WBC 10.94 10^3/uL (5.00-10.00)
[2024-09-07 14:05] LABS: B-TYPE NATRIURETIC PEPTIDE,BNP 26 pg/mL (0-100)
[2024-09-07 14:06] LABS: ALANINE AMINOTRANSFERASE,ALT 23 U/L (14-63); ASPARTATE AMNIOTRANSFERASE,AST 11 U/L (15-37); BILIRUBIN TOTAL 0.5 mg/dL (0.2-1.0); BLOOD UREA NITROGEN,BUN 44 mg/dL (7-18); CARBON DIOXIDE,CO2 22.0 mmol/L (21.0-32.0); CHLORIDE,CL 110 mmol/L (98-107); CREATININE 2.49 mg/dL (0.51-1.17); EST CRCL DRUG DOSING (CG) 30.54 mL/min; ESTIMATED GFR 28 mL/min (>=60); GLUCOSE RANDOM 96 mg/dL (70-140); POTASSIUM,K 4.2 mmol/L (3.5-5.1); PROTEIN TOTAL,TP 6.3 g/dL (6.4-8.2); SODIUM,NA 142 mmol/L (136-145)
[2024-09-07 15:16] LABS: APPEARANCE,URINE CLEAR (CLEAR); GLUCOSE,URINE >=1000 mg/dL (NEGATIVE); OCCULT BLOOD,URINE NEGATIVE (NEGATIVE)
[2024-09-07 15:22] LABS: EPITHELIAL CELLS,URINE RARE /LPF
[2024-09-07 16:16] VITALS: BP 135/68; PULSE 60
== END 2024-09-07 16:04 | disposition home or self-care (01) ==
LOC: KA.ED 13:22
DX: I95.1 Orthostatic hypotension (principal); E86.0 Dehydration; M47.817 Spondylosis without myelopathy or radiculopathy, lumbosacral region; I12.9 Hypertensive chronic kidney disease with stage 1 through stage 4 chronic kidney disease, or unspecified chronic kidney disease; N18.32 Chronic kidney disease, stage 3b; E11.22 Type 2 diabetes mellitus with diabetic chronic kidney disease; I25.10 Atherosclerotic heart disease of native coronary artery without angina pectoris; I25.2 Old myocardial infarction; E78.00 Pure hypercholesterolemia, unspecified; Z95.5 Presence of coronary angioplasty implant and graft; Z88.5 Allergy status to narcotic agent; Z79.51 Long term (current) use of inhaled steroids; Z79.82 Long term (current) use of aspirin; Z79.899 Other long term (current) drug therapy
CPT/HCPCS: 71045; 80053; 81001; 83880; 84484; 85025; 86140; 96360; 96361; 99285-25; J7030